=== PATIENT | female | born 1960 | race Caucasian/White ===

== ENCOUNTER 2022-09-14 08:49 | Outpatient (CLI) | payer OTHER, SELFPAY ==
--- NOTE | ~2022-09-14 | MR_ITS ---
MRI of the lumbar spine Clinical History: Degenerative disc disease Technique: Axial T2-weighted images, and sagittal T1-weighted, T2-weighted, and T2 fat-sat images wer e acquired. Findings: There is dextroscoliosis of the lumbar spine. No fracture identified. Minimal grade 1 anter olisthesis of L4 over L5 present. There are extensive reactive marrow signal changes due to extensive degenerative disc change. At L1-L2, there is severe degenerative disc narrowing. There is mild diffuse disc bulge with moderate facet arthropathy. No central canal stenosis. There is advanced right neural foraminal narrowing, an d minimal left neural foraminal narrowing. At L2-L3, there is advanced degenerative disc narrowing. There is diffuse disc bulge with moderate fa cet arthropathy. No central canal stenosis present. There is moderate to advanced left neural foramin al narrowing. Right neural foramen preserved. At L3-L4, there is advanced degenerative disc narrowing. Diffuse disc bulge and advanced facet arthro concepcion are present, with moderate central canal stenosis/thecal sac compression. There is severe left neural foraminal narrowing and moderate right neural foraminal narrowing. At L4-L5, there is diffuse disc bulge and severe facet arthropathy, which contribute to severe spinal canal stenosis/thecal sac compression. There is severe left neural foraminal narrowing and moderate to severe right neural foraminal narrowing. At L5-S1, there is diffuse disc bulge and severe facet arthropathy, with severe right lateral recess stenosis. There is severe right neural foraminal compromise. There is mild left neural foraminal comp romise. Paravertebral soft tissues are unremarkable. Impression: Advanced degenerative spondylosis, as detailed above, worst at L4-L5. Dextroscoliosis with minimal grade 1 anterolisthesis of L4 over L5. Reviewed, dictated and finalized at [facility]. Impression: Advanced degenerative spondylosis, as detailed above, worst at L4-L5. Dextroscoliosis with minimal grade 1 anterolisthesis of L4 over L5.
== END 2022-09-14 08:50 ==
LOC: MICIMG 08:51
PROVIDERS: PCP Emergency Medicine
DX: M47.896 Other spondylosis, lumbar region (principal); M41.86 Other forms of scoliosis, lumbar region; M43.16 Spondylolisthesis, lumbar region
CPT/HCPCS: 72148

== ENCOUNTER → 2022-09-14 08:53 | Outpatient (CLI) | payer OTHER, SELFPAY ==
--- NOTE | ~2022-09-14 | MM_ITS ---
EXAMINATION: MM screening govind BI w reynaldo HISTORY: Screening TECHNIQUE: Craniocaudal and mediolateral oblique 3-D tomosynthesis images were obtained and synthetic 2-D images were generated. CAD analysis was submitted and interpreted. COMPARISON: Comparison to multiple prior studies sequentially, with oldest reviewed study dated 09/14. BREAST PARENCHYMAL COMPOSITION: There are scattered areas of fibroglandular density. FINDINGS: There is no evidence of suspicious mass, calcification, or architectural distortion to sugg est malignancy in either breast. There has been no suspicious interval change. IMPRESSION: 1. No mammographic evidence of malignancy. 2. Recommend routine screening mammography in one year. BI-RADS Category 1: Negative Reviewed, dictated and finalized at location A.
--- NOTE | ~2022-09-14 | DEXA_ITS ---
Bone Density Report Name: GABBIE FATIMA Age: 61 Sex: Female Ethnicity: White Date of : 1960 Indication: postmenopausal; screening for osteoporosis; Referring Provider: RAFAELA, KINA Perez Study: Bone densitometry was performed. Exam Date: September 14, 2022 Accession number: [id number] Bone Density: Region BMD T-score Z-score Classification AP Spine (L1, L2) 1.165 1.7 3.1 Normal Femoral Neck (Right) 0.698 -1.4 0.0 Osteopenia Total Hip (Right) 0.824 -1.0 0.1 Normal World Health Organization criteria for BMD impression classify patients as: Normal (T-score at or above -1.0), Osteopenia (T-score between -1.0 and -2.5), or Osteoporosis (T-score at or below -2.5). 10-year Fracture Risk(1): Major Osteoporotic Fracture 7.5% Hip Fracture 1.0% Reported Risk Factors: [place] (), Neck BMD=0.698, BMI=31.8, smoking (1) FRAX(R) Version 3.08. Fracture probability calculated for an untreated patient. Fracture probability may be lower if the patient has received treatment. Clinical Information Provided by Patient: Smokes Has used the following medications: Vitamin D, Calcium Patient maximum height was 64 Menopause Age: 40 No regular weight bearing exercise Does not regularly consume dairy products Drinks caffeinated beverages Onset of menses at age 15 Number of children 0 Missed period for more than 6 months in a row Impression: The patient has low bone mass, based on the Right Femoral Neck T-score. The patient has an estimated ten-year risk of hip fracture of 1% and an estimated ten-year risk of major fracture of 7.5%, based on the WHO FRAX algorithm. The patient has risk factors, including: smoking. Discussion: BONE DENSITY IS LOW AT ONE OR MORE SKELETAL SITES. This patient's lowest T-score is low at one or more skeletal sites. It meets the World Health Organization's (WHO) criteria for ?low bone mass? (T-score between -1.0 and -2.5). The patient's 10-year risk of fracture as calculated by FRAX is less than the threshold where pharmacological therapy is recommended by the National Osteoporosis Foundation (NOF). However, all treatment decisions require clinical judgment and consideration of individual patient factors, including patient preferences, comorbidities, previous drug use, risk factors not captured in the FRAX model (e.g., frailty, falls, vitamin D deficiency, increased bone turnover, interval significant decline in bone density) and possible under or overestimation of fracture risk by FRAX. The patient should follow a healthful lifestyle (good nutrition with adequate calcium and vitamin D, and appropriate weight-bearing exercise). Follow-Up: Consider repeating this study in 2 to 3 years to reassess this patient's status, or sooner if there is some new clinical indication. Reported by: WILIAN on 09/14/2022 9:57:00 AM. ___
== END ==
PROVIDERS: PCP Emergency Medicine; Visit Provider Emergency Medicine
DX: Z12.31 Encounter for screening mammogram for malignant neoplasm of breast (principal); Z13.820 Encounter for screening for osteoporosis; M85.9 Disorder of bone density and structure, unspecified; F17.200 Nicotine dependence, unspecified, uncomplicated; Z78.0 Asymptomatic menopausal state
CPT/HCPCS: 77063; 77067; 77080

== ENCOUNTER 2024-03-01 10:35 | Outpatient (CLI) | payer OTHER, SELFPAY ==
--- NOTE | ~2024-03-01 | MR_ITS ---
EXAMINATION: MR hip RT wo con DATE: 03/01/2024 11:27 INDICATION: Right hip pain TECHNIQUE: Magnetic resonance imaging (MRI) of the right hip was performed without intravenous contr ast. Sequences included full-field axial PD-weighted FS FSE and T1-weighted FSE, coronal of the pelvi s with PD-weighted FS FSE, T2-weighted FSE and T1-weighted FSE, small field of view of the right hip with axial PD-weighted FS FSE, sagittal PD-weighted FS FSE, coronal PD-weighted FS FSE and coronal T2 weighted FSE. Additional radial T1-weighted FGR oriented orthogonal to the acetabular rim were obt ained for evaluation of the labrum. COMPARISON: Right hip radiographs dated 02/16/2024 FINDINGS: Bones/labrum/cartilage: There is metallic magnetic field artifact associated with a left total hip arthroplasty which obscure s the immediately adjacent bones and soft tissues. Lumbar dextroscoliosis with severe spondylosis inc luding associated fibrofatty degenerative endplate changes. Advanced osteoarthritis at the right hip with remodeling of the apex of the humeral head and cephalad aspect of the acetabulum. There is under lying subarticular edema-like and cystlike changes at both sides of the joint space. Diffuse labral d egeneration which is been partially replaced by acetabular marginal osteophytes and adjacent small he terotopic ossicles. No fracture, osteonecrosis or pathologic marrow replacing process. Fluid: Likely reactive small right hip joint effusion with mild synovitis. Soft tissues: There is linear scarring in the subcutaneous tissues lateral to the proximal left femur with likely s econdary region of fatty atrophy of the distal most left gluteus medius medius muscle belly. Otherwis e normal and symmetric muscle bulk and signal in the pelvis and visualized proximal thighs. Mild scar ring along the surgical scar at the distal left gluteus solitario tendon. The iliopsoas, gluteal and pr oximal hamstring tendons are otherwise normal. Limited evaluation of visceral organs of the pelvis is unremarkable. No pathologically enlarged pelvic/inguinal lymphadenopathy. IMPRESSION: 1. Advanced right hip osteoarthritis with likely reactive small right hip joint effusion. 2. Lumbar dextroscoliosis with severe spondylosis. 2. Left total hip arthroplasty. Reviewed, dictated and finalized at location B. [facility] [employer]
== END 2024-03-01 10:36 | disposition home or self-care (01) ==
LOC: MICIMG 10:36
PROVIDERS: PCP Emergency Medicine; Visit Provider Orthopaedic Surgery
DX: M16.11 Unilateral primary osteoarthritis, right hip (principal); M41.86 Other forms of scoliosis, lumbar region; M43.06 Spondylolysis, lumbar region; Z96.642 Presence of left artificial hip joint
CPT/HCPCS: 73721

== ENCOUNTER 2024-05-31 07:49 | Outpatient (CLI) | payer OTHER, SELFPAY ==
--- OUTSIDE RECORDS SUMMARY | 2024-05-31 08:02 | XMS_ITS | CONTINUITY OF CARE DOCUMENT ---
Author Name juancarlos bauer Address Unknown Organization [facility] Address [address] [place] [address] Phone [phone] Care Team Providers Care Iron Miner Name Role Phone Lazarus GARAY, Xuan Orellana Unavailable NAYELY GARAY, AIDEN Harris Unavailable EMETERIO GARAY, AXEL Cooper Unavailable [phone] PROBLEMS Condition Status Date Provider Notes Cardiovascular screening active Xuan gilbert MD HTN essential active Xuan Qiu MD Hypercholesterolemia active Xuan ambrocio MD Preop cardiovasc. examination active Neno Qiu MD Tobacco abuse active Xuan Qiu MD GERD active Xuan Qiu MD ENCOUNTERS Date Type Provider Location Encounter Diag nosis 1 - 5 In-person encounter Office Visit Xuan Qiu MD [place] [facility] Cardiovascular screeningHTN essentialHypercholesterolemiaPreop cardiovasc. examinationTobacco abuseGERD VITAL SIGNS Date Observation Value Provider Body Mass Index (Ratio) 34.84 kg/m2 Jada Qiu MD blood pressure, cuff size regular Chaz Crandall blood pressure, diastolic 72 mm[Hg] Chaz Crandall blood pressure, systolic 110 mm[Hg] Mary Crandall pulse rate 96 /min Nika Crandall oxygen saturation, oximetry 98 % Nika Crandall respiratory rate E&M 18 /min Nika Crandall weight E&M 203 [lb_av] Nika Crandall height E&M 64 [in_i] Nika Crandall blood pressure, resting Yes Marcus busby Raz HISTORY OF MEDICATION USE Medication Status Instructions Dates Provider Indications Com ments CRANBERRY TABLET active take one tablet by mouth once daily Nika Raz EMERGEN-C IMMUNE ORAL PACKET active Nika Marby EQL FIBER THERAPY TABLET active take one tablet by mouth once daily Nika Raz CALCIUM + D3 TABLET active take one 500 0 mg by mouth once janet Nika Raz CALCIUM + D TABLET active take one tabl et by mouth once daily Nika Crandall ADULT ASPIRIN REGIMEN 81 MG ORAL TABLET DELAYED RELEASE active take one tablet by mouth once daily Nika Crandall LISINOPRIL 40 MG ORAL TABLET active TAKE 1 TABLET BY MOUTH EVERY DAY Nika Carndall #90, 90 days supply, Prescribed by AXEL STORM, Filled 05/04/2020 SERTRALINE HCL 50 MG ORAL TABLET active TAKE 1 TABLET BY MOUTH EVERY DAY Nika Crandall #90, 90 days supply, Prescribed by AXEL STORM, Filled 05/23/2020 FLUTICASONE PROPIONATE 50 MCG/ACT NASAL SUSPENSION active SHAKE LIQUID AND USE 1 SPRAY IN EACH NOSTRIL EVERY DAY Nika Crandall #16, 30 days supply, Prescribed by AXEL STORM, Filled 05/23/2020 OMEPRAZOLE 40 MG ORAL CAPSULE DELAYED RELEASE active TAKE 1 CAPSULE BY MOUTH EVERY DAY Nika Crandall #90, 90 days supply, Prescribed by AXEL STORM, Filled 06/07/2020 BUPROPION HCL ER (XL) 150 MG ORAL TABLET EXTENDED RELEASE 24 HOUR active TAKE 1 TABLET BY MOUTH DAILY Nika Crandall #90, 90 days supply, Prescribed by AXEL STORM, Filled 06/07/2020 MELOXICAM 7.5 MG ORAL TABLET active TAKE 1 TABLET BY MOUTH TWICE DAILY Nika Marby #60, 30 days supply, Prescribed by AXEL STORM, Filled 07/17/2020 HYDROCHLOROTHIAZIDE 25 MG ORAL TABLET active TAKE 2 TABLETS BY MOUTH EVERY DAY Nika Raz #180, 90 days supply, Prescribed by AXEL STORM, Filled 07/17/2020 ATORVASTATIN CALCIUM 10 MG ORAL TABLET active TAKE 1 TABLET BY MOUTH EVERY DAY IN THE EVENING Nika aRz #30, 30 days supply, Prescribed by AXEL STORM, Filled 07/17/2020 SOCIAL HISTORY Date Observation Value Provider number of grandchildren Xuan Qiu MD smoking/tobacco cess ation, patient education and counseling yes Xuan Qiu MD cigarette use yes Nika Crandall smoking status Former smoker Nika Crandall INSURANCE PROVIDERS Payer name Policy type / Coverage type [place] [employer] party ID [employer] [id number] TREATMENT PLAN Date Name Performer Cardiology: H er updated medication list for this problem includes: Omeprazole 40 Mg Oral Capsule Delayed Release (Omeprazole) ..... Take 1 capsule by mouth every day Xuan Qiu MD Cardiology: H er updated medication list for this problem includes: Atorvastatin Calcium 10 Mg Oral Tablet (Atorvastatin calcium) ..... Take 1 tablet by mouth every day in the evening Xuan Qiu MD Cardiology:The Patie nt was reencouraged to stop smoking. Xuan Qiu MD Cardiology:will check echo and l ex stress cannot walk Xuan Qiu MD Cardiology: H er updated medication list for this problem includes: Adult Aspirin Regimen 81 Mg Oral Tablet Delayed Release (Aspirin) ..... Take one tablet by mouth once daily Lisinopril 40 Mg Oral Tablet (Lisinopril) ..... Take 1 tablet by mouth every day Hydrochlorothiazide 25 Mg Oral Tablet (Hydrochlorothiazide) ..... Take 2 tablets by mouth every day BP today: 110/72 Xuan Qiu MD Date Name Complete Echo Stress Regadenoson HISTORY OF PROCEDURES Procedure Date Procedure Name Provider Procedure Notes S tatus EKG Xuan Qiu MD compl eted
--- OUTSIDE RECORDS SUMMARY | 2024-05-31 08:02 | XMS_ITS | Data Portability ---
Author Organization [facility] ROSEMARYPilar [facility] Address [address] [place] [address] Care Team Providers Care Lab Clerk Name Role Phone KINA RUSSO Primary Care Provider Assessment No assessment recorded. Plan of Treatment Reminders Order Date Submit Date Provider Last Modified By Organization Details Last Modified Time Details Appointments ANY 30 2024 10:30A M CLAUDIA Qureshi Not available Not available Not available ANY 15 2024 09:00A M CLAUDIA Qureshi Not available Not available Not available Lab lipid panel, serum 2024 025 [email or web address], [address] , [place], [address], 04/27/2024 13:42:28 lipid panel, serum 2023 024 [email or web address], [address] , [place], [address], 02/20/2024 18:11:27 TSH, serum or plasma 2023 024 [facility], [address] , [place], [address], 02/20/2024 18:11:29 drug screen , urine 2023 024 [facility], [address] , [place], [address], 01/13/2024 22:45:14 noninv asive colore ctal cancer DNA + occult blood screen ing, QL, stool 11/12/ 2024 11/12/2 024 [facility] (Cologuard Orders Only), [address], [address], [place], [address], 01/10/2024 14:54:02 CMP, serum or plasma 2023 024 [email or web address], [address], [place], [address], 02/20/2024 18:11:28 CMP, serum or plasma 2023 024 [facility], [address], [place], [address], 07/21/2023 16:24:10 CBC w/ auto diff 2023 024 [facility], [address], [place], [address], 07/21/2023 16:24:10 magnes ium, serum or plasma 2023 024 [facility], [address], [place], [address], 07/21/2023 16:24:10 lipid panel, serum 2023 024 [facility], [address], [place], [address], 07/21/2023 16:24:10 vitami n B12 + folate , serum or blood 2023 024 [facility], [address], [place], [address], 07/21/2023 16:24:10 BMP, serum or plasma 2022 023 [email or web address], [address], [place], [address], 11/23/2022 15:36:26 magnes ium, serum or plasma 2022 023 [facility], [address], [place], [address], 11/23/2022 15:36:25 CMP, serum or plasma [address] [facility], [address], [place], [address], 06/15/2022 09:26:40 CBC w/ auto diff 2022 023 [facility], [address], [place], [address], 06/15/2022 09:26:40 magnes ium, serum or plasma 2022 023 [facility], [address], [place], [address], 06/15/2022 09:26:41 lipid panel, serum 2022 023 [facility], [address], [place], [address], 06/15/2022 09:26:41 vitami n D, 25-hyd tammy, total, serum [address] [facility], [address], [place], [address], 06/15/2022 09:26:41 vitami n B12 + folate , serum or blood 2022 023 [facility], [address], [place], [address], 06/15/2022 09:26:41 noninv asive colore ctal cancer DNA + occult blood screen ing, QL, stool 2022 023 [facility] (Cologuard Orders Only), [address], [address], [place], [address], 04/21/2022 18:55:13 Referral ENT surger y referr al 2022 023 SUGEY Beltrán MD, [address], [place], [address], 12/16/2022 16:24:14 pain manage ment referr al 2022 023 [facility], [address] , [address], [place], [address], 07/05/2022 14:54:14 Procedures None record ed. Surgeries None record ed. Imaging MAMMO, screen ing, digita l, bilate ral, w/ CAD 2022 023 [facility], [address], [address], [place], [address], 06/14/2022 14:32:06 DEXA 2022 023 [email or web address], [address], [address], [place], [address], 05/07/2022 11:21:55 Medication Orders pregab joan 50 mg capsul e 2024 025 [facility], [address], [place], [place], [id number], 04/26/2024 10:39:31 cyclob enzapr ine 10 mg tablet 2024 025 [facility], [address], [place], [place], [id number], 04/26/2024 11:37:19 hydroc hlorot hiazid e 25 mg tablet 2024 025 [facility], [address], [place], [place], [id number], 04/26/2024 10:39:28 buprop ion HCl XL 150 mg 24 hr tablet , extend ed releas e 2023 024 [facility] #18379, [address], [place], [place], [id number], 01/10/2024 14:54:02 pregab joan 50 mg capsul e 2023 024 [facility] #46993, [address], [place], [place], [id number], 01/10/2024 14:54:02 omepra zole 40 mg capsul e,shayna yed releas e 2023 024 [facility] #20641, [address], [place], [place], [id number], 06/21/2023 16:39:02 amoxic illin 875 mg-pot assium clavul anate 125 mg tablet [address] [facility]26442, [address], [place], [place], [id number], 08/16/2023 19:25:34 predni sone 20 mg tablet [address] [facility] #38858, [address], [place], [place], [id number], 08/16/2023 19:25:46 hydroc hlorot hiazid e 25 mg tablet 2023 024 [facility] #80387, [address], [place], [place], [id number], 06/21/2023 19:43:12 atorva statin 10 mg tablet 2023 024 [facility], [address], [place], [place], [id number], 01/10/2024 14:08:30 omepra zole 40 mg capsul e,shayna yed releas e 2022 023 [facility] #99333, [address], [place], [place], [id number], 04/25/2022 17:05:16 bao ukast 10 mg tablet 2022 023 [facility] #51366, [address], [place], [place], [id number], 04/25/2022 17:05:15 cyclob enzapr ine 10 mg tablet 2022 023 [facility] #31556, [address], [place], [place], [id number], 04/21/2022 18:31:01 meloxi cam 7.5 mg tablet 2022 023 [facility], [address], [place], [place], [id number], 11/22/2022 12:10:57 hydroc hlorot hiazid e 25 mg tablet 2022 023 [facility] #44999, [address], [place], [place], [id number], 04/25/2022 17:05:18 lisino pril 40 mg tablet 2022 023 [facility] #59019, [address], [place], [place], [id number], 04/21/2022 18:31:02 sertra line 50 mg tablet 2022 023 [facility] #43615, [address], [place], [place], [id number], 04/21/2022 18:31:02 buprop ion HCl XL 150 mg 24 hr tablet , extend ed releas e 2022 023 [facility] #28691, [address] [place] [address], [place], [place], [id number], 04/21/2022 18:31:00 Patient TargetsNo targets recorded. Patient Instructions Encounter Date Encounter Id Patient Instructions Last Modified By Organization Details Last Modified Time 04/21/2022 [id number] high blood press ure: care instructions [email or web address] Not available 04/21/2022 18:30:50 learning about h igh blood pressure [email or web address] Not available 04/21/2022 18:30:51 high cholesterol : care instructions [email or web address] Not available 04/21/2022 18:30:51 body mass index: care instructions [email or web address] Not available 04/25/2022 17:05:06 learning about h ealthy weight [email or web address] Not available 04/25/2022 17:05:06 Ashley, - Thank raeann cloud for your visit - Continue your current medications - Have your labs drawn at your earliest convenience - Your lab results will be available on the portal with any recommendations, or we will call you with them - I have placed referral(s) below. You should receive a phone call in the next 2 weeks to schedule this(these) appointment(s). - Return to clinic in 6 months, AND as needed. - Call with any concerns ____ Preventive immunization against tetanus, diphtheria and pertussis is recommended every 10 years, or after 7 years if sustaining a tetanus-prone wound. Preventive immunization against shingles (herpes zoster) is recommended to reduce risk of occurrence, possible chronic pain, and transmission. Currently this is a two shot regimen. All individuals age 65 and up are encouraged to obtain vaccination against Pneumococcal pneumonia. Currently, this is a single immunization, [id number], if you have never previously been immunized. Yearly influenza immunization is recommended, and typically available beginning in mid-October. I highly encourage all who are able to complete an initial immunization series against COVID19, along with boosters as indicated by age or medical history. ____ Exercise recommendations: It is recommended that you do daily aerobic (walking, bicycling, swimming) and resistance exercises (light weight lifting, resistance band stretching) for at least 30 minutes, most days of the week. If you cannot walk, chair exercises for 10-15 minutes a day would help tremendously. As little as 15-20 minutes exercise, in one or two sessions a day, is still very helpful to manage/improve your weight and overall health Diet recommendations: Eat small portion meals, trying not to consume more than 1800 calories a day. Try to eat not more than 2 servings of carbs (starches) with your meals. Avoid soft drinks, including regular sodas, fruit juices, and sweetened tea. Drink water instead. Eat plenty of green and leafy vegetables, including salads. [email or web address] Not available 04/21/2022 18:33:57 11/22/2022 [id number] high cholesterol : care instructions [email or web address] Not available 11/22/2022 12:49:56 high blood press ure: care instructions [email or web address] Not available 11/22/2022 12:49:56 learning about h ealthy weight [email or web address] Not available 11/22/2022 12:49:56 Ashley, - Thank y ai for your visit - Continue your current medications - Decrease your hydrochlorothiazide to 25 mg daily - check your blood pressures and call if persistently 140/90 or above - Try taking 5-10 mg cyclobenzaprine up to 3 times daily as tolerated, for back pain - Your results will be available on the portal with any recommendations, or we will call you with them - I have placed referral(s) below. You should receive a phone call in the next 2 weeks to schedule this(these) appointment(s). - Return to clinic in 6 months, AND as needed. - Call with any concerns ____ Immunization recommendations: Preventive immunization against tetanus, diphtheria and pertussis is recommended every 10 years, or after 7 years if sustaining a tetanus-prone wound. Preventive immunization against shingles (herpes zoster) is recommended to reduce risk of occurrence, possible chronic pain, and transmission. Currently this is a two shot regimen. All individuals age 65 and up are encouraged to obtain vaccination against Pneumococcal pneumonia. Currently, this is a single immunization, [id number], if you have never previously been immunized. Yearly influenza immunization is recommended, and typically available beginning in mid-October. I highly encourage all who are able to complete an initial immunization series against COVID19, along with boosters as indicated by age or medical history. Consider obtaining an RSV immunization. For more information: https://www.cdc.gov/va caren/vpd/rsv/index.h tml ____ Exercise recommendations: It is recommended that you do daily aerobic (walking, bicycling, swimming) and resistance exercises (light weight lifting, resistance band stretching) for at least 30 minutes, most days of the week. If you cannot walk, chair exercises for 10-15 minutes a day would help tremendously. As little as 15-20 minutes exercise, in one or two sessions a day, is still very helpful to manage/improve your weight and overall health Diet recommendations: Eat small portion meals, trying not to consume more than 1800 calories a day. Try to eat not more than 2 servings of carbs (starches) with your meals. Avoid soft drinks, including regular sodas, fruit juices, and sweetened tea. Drink water instead. Eat plenty of green and leafy vegetables, including salads. [email or web address] Not available 11/22/2022 12:56:00 06/21/2023 [id number] Acute Sinusitis: Care Instructions [email or web address] Not available 06/21/2023 16:38:51 learning about h igh blood pressure [email or web address] Not available 06/21/2023 16:38:51 high cholesterol : care instructions [email or web address] Not available 06/21/2023 16:38:51 learning about h ealthy weight [email or web address] Not available 06/21/2023 16:38:51 Ashley, - Thank you for your visit - Continue your current medications - Have your labwork done at your earliest convenience - Your results will be available on the portal with any recommendations, or we will call you with them - Use medications as directed. - Drink plenty of fluids - Mucinex-D for congestion/sinus pressure/ear pain - Return to clinic in 6 months, AND as needed. - Call with any concerns ____ Immunization recommendations: - Preventive immunization against tetanus, diphtheria and pertussis is recommended every 10 years, or after 7 years if sustaining a tetanus-prone wound - Preventive immunization against shingles (herpes zoster) is recommended to reduce risk of occurrence, possible chronic pain, and transmission. Currently this is a two shot regimen - Yearly influenza immunization is recommended, and typically available beginning in mid-October - I highly encourage all who are able to complete an initial immunization series against COVID19, along with boosters as indicated by age or medical history - Consider obtaining an RSV immunization. For more information: https://www.cdc.gov/va ccines/vpd/rsv/index.h tml ____ Exercise recommendations: - It is recommended that you do daily aerobic (walking, bicycling, swimming) and resistance exercises (light weight lifting, resistance band stretching) for at least 30 minutes, most days of the week. - If you cannot walk, chair exercises for 10-15 minutes a day would help tremendously. - As little as 15-20 minutes exercise, in one or two sessions a day, is still very helpful to manage/improve your weight and overall health Diet recommendations: - Eat small portion meals, trying not to consume more than 1800 calories a day. - Try to eat not more than 2 servings of carbs (starches) with your meals. - Avoid soft drinks, including regular sodas, fruit juices, and sweetened tea. Drink water instead. - Eat plenty of green and leafy vegetables, including salads. 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 Referring Physician: Kina Russo, Family Medicine, Encounter Date: 11/22/2022 Results Created Date Observation Date Name Description Value Unit Range Abnormal Flag Note LastModifiedBy Organization Detail LastModifiedTime 07/03/1907/03/2022 LIPID PANEL , STAND JOON cholesterol, total 167 mg/dL <200 normal Not Available [facility] [address] [address] [place], [address], 07/03/2022 02:32:34 07/03/1907/03/2022 LIPID PANEL , STAND JOON HDL cholesterol 52 mg/dL > or = 50 normal Not Available [facility] [address] [address], [place], [address], 07/03/2022 02:32:34 07/03/1907/03/2022 LIPID PANEL , STAND JOON triglyceride s 100 mg/dL <150 normal Not Available [facility] [address] [address] [place], [address], 07/03/2022 02:32:34 07/03/1907/03/2022 LIPID PANEL , STAND JOON LDL-choleste rol 95 mg/dL _(honorio c) normal Refer ence range : <100 Santiago able range <100 mg/dL for prima ry preve ntion ; <70 mg/dL for patie nts with CHD or diabe tic patie nts with > or = 2 CHD risk facto rs. LDL-C is now calcu lated using the Norma fernandez-Hop kins carlyle brown n, which is a valid ated novel vanceo vikki talavera r accur acy than the Fried zhane equat ion in the estim ation of LDL-C . Norma fernadnez SS et al. MARZENA. 2013; 310(1 9): 2061- 2068 (http ://ed ucati on.Qu Emili larsons. com/f aq/FA Q164) Not Available [facility] [address] [address], [place], [address], 07/03/2022 02:32:34 07/03/1907/03/2022 LIPID PANEL , STAND JOON chol/HDLC ratio 3.2 (calc ) <5.0 normal Not Available [address], [address], 07/03/2022 02:32:34 07/03/19 23 07/03/2022 LIPID PANEL , STAND JOON non HDL cholesterol 115 mg/dL _(honorio c) <130 normal For patie nts with diabe carol ann plus 1 major ASCVD risk facto r, treat ing to a non-H DL-C goal of <100 mg/dL (LDL- C of <70 mg/dL ) is consi dered a thera peuti c optio n. Not Available [address], [address], 07/03/2022 02:32:34 07/03/19 23 07/03/2022 MAGNE SIUM magnesium 2.1 mg/dL 1.5-2. 5 normal Not Available [address] [place], [address], 07/03/2022 02:32:34 07/03/19 23 07/03/2022 COMPR EHENS ROSANNE METAB OLIC PANEL glucose 110 mg/dL 65-99 high Fasti ng refer ence inter anna For someo ne witho ut known diabe carol ann, a gluco se value betwe en 100 and 125 mg/dL is consi stent with predi abete s and shoul d be confi rmed with a follo w-up test. Not Available [facility] [address] [address] [place], [address], 07/03/2022 02:32:35 07/03/19 23 07/03/2022 COMPR EHENS ROSANNE METAB OLIC PANEL urea nitrogen (BUN) 18 mg/dL 7-25 normal Not Available [address] [address] [place], [address], 07/03/2022 02:32:35 07/03/19 23 07/03/2022 COMPR EHENS ROSANNE METAB OLIC PANEL creatinine 1.13 mg/dL 0.50-1 .05 high Not Available [address], [address], 07/03/2022 02:32:35 07/03/19 23 07/03/2022 COMPR EHENS ROSANNE METAB OLIC PANEL eGFR 55 mL/mi n/1.7 3m2 > or = 60 low The eGFR is based on the CKD-E PI 2020 equat ion. To calcu late the new eGFR from a previ ous Creat inine or Cysta tin C resul t, go to https ://bobo w.karis hamy.o jaquan/meghan mendoza s/ kdoqi /gfr% 5Fcal culat or Not Available [address], [address], 07/03/2022 02:32:35 07/03/19 23 07/03/2022 COMPR EHENS ROSANNE METAB OLIC PANEL BUN/creatini ne ratio 16 (calc ) 6-22 normal Not Available [address], [address], 07/03/2022 02:32:35 07/03/19 23 07/03/2022 COMPR EHENS ROSANNE METAB OLIC PANEL sodium 138 mmol/ L 135-14 6 normal Not Available [address], [address], 07/03/2022 02:32:35 07/03/19 23 07/03/2022 COMPR EHENS ROSANNE METAB OLIC PANEL potassium 4.6 mmol/ L 3.5-5. 3 normal Not Available [facility] [address], [address], 07/03/2022 02:32:35 07/03/19 23 07/03/2022 COMPR EHENS ROSANNE METAB OLIC PANEL chloride 102 mmol/ L 98-110 normal Not Available [facility] [address], [address], 07/03/2022 02:32:35 07/03/19 23 07/03/2022 COMPR EHENS ROSANNE METAB OLIC PANEL carbon dioxide 29 mmol/ L 20-32 normal Not Available [address], [address], 07/03/2022 02:32:35 07/03/19 23 07/03/2022 COMPR EHENS ROSANNE METAB OLIC PANEL calcium 9.9 mg/dL 8.6-10 .4 normal Not Available [address], [address], 07/03/2022 02:32:35 07/03/19 23 07/03/2022 COMPR EHENS ROSANNE METAB OLIC PANEL protein, total 6.7 g/dL 6.1-8. 1 normal Not Available [address], [address], 07/03/2022 02:32:35 07/03/19 23 07/03/2022 COMPR EHENS ROSANNE METAB OLIC PANEL albumin 4.3 g/dL 3.6-5. 1 normal Not Available [address], [address], 07/03/2022 02:32:35 07/03/19 23 07/03/2022 COMPR EHENS ROSANNE METAB OLIC PANEL globulin 2.4 g/dL_ (calc ) 1.9-3. 7 normal Not Available [address], [address], 07/03/2022 02:32:35 07/03/19 23 07/03/2022 COMPR EHENS ROSANNE METAB OLIC PANEL albumin/glob ulin ratio 1.8 (calc ) 1.0-2. 5 normal Not Available [address], [address], 07/03/2022 02:32:35 07/03/19 23 07/03/2022 COMPR EHENS ROSANNE METAB OLIC PANEL bilirubin, total 0.5 mg/dL 0.2-1. 2 normal Not Available [address], [address], 07/03/2022 02:32:35 07/03/19 23 07/03/2022 COMPR EHENS ROSANNE METAB OLIC PANEL alkaline phosphatase 55 U/L 37-153 normal Not Available [facility] [employer] [address], [address], 07/03/2022 02:32:35 07/03/19 23 07/03/2022 COMPR EHENS ROSANNE METAB OLIC PANEL AST 14 U/L 10-35 normal Not Available [address], [address], 07/03/2022 02:32:35 07/03/19 23 07/03/2022 COMPR EHENS ROSANNE METAB OLIC PANEL ALT 15 U/L 6-29 normal Not Available [address], [address], 07/03/2022 02:32:35 07/03/19 23 07/03/2022 CBC (INCL UDES DIFF/ PLT) white blood cell count 6.2 thous and/u L 3.8-10 .8 normal Not Available [address], [address], 07/03/2022 02:32:35 07/03/19 23 07/03/2022 CBC (INCL UDES DIFF/ PLT) red blood cell count 4.20 james on/uL 3.80-5 .10 normal Not Available [address], [address], 07/03/2022 02:32:35 07/03/19 23 07/03/2022 CBC (INCL UDES DIFF/ PLT) hemoglobin 13.5 g/dL 11.7-1 5.5 normal Not Available [facility] [address] [place], [address], 07/03/2022 02:32:35 07/03/1907/03/2022 CBC (INCL UDES DIFF/ PLT) hematocrit 39.9 % 35.0-4 5.0 normal Not Available [facility] [address], [address], 07/03/2022 02:32:35 07/03/1907/03/2022 CBC (INCL UDES DIFF/ PLT) MCV 95.0 fL 80.0-1 00.0 normal Not Available [facility] [address], [address], 07/03/2022 02:32:35 07/03/1907/03/2022 CBC (INCL UDES DIFF/ PLT) MCH 32.1 pg 27.0-3 3.0 normal Not Available [facility] [address], [address], 07/03/2022 02:32:35 07/03/1907/03/2022 CBC (INCL UDES DIFF/ PLT) MCHC 33.8 g/dL 32.0-3 6.0 normal Not Available [facility] [address], [address], 07/03/2022 02:32:35 07/03/1907/03/2022 CBC (INCL UDES DIFF/ PLT) RDW 12.9 % 11.0-1 5.0 normal Not Available [facility] [address], [address], 07/03/2022 02:32:35 07/03/1907/03/2022 CBC (INCL UDES DIFF/ PLT) platelet count 363 thous and/u L 140-40 0 normal Not Available [facility] [address], [address], 07/03/2022 02:32:35 07/03/19 23 07/03/2022 CBC (INCL UDES DIFF/ PLT) MPV 10.3 fL 7.5-12 .5 normal Not Available [address], [address], 07/03/2022 02:32:35 07/03/19 23 07/03/2022 CBC (INCL UDES DIFF/ PLT) absolute neutrophils 2672 cells /uL 1500-7 800 normal Not Available [facility] [address], [address], 07/03/2022 02:32:35 07/03/19 23 07/03/2022 CBC (INCL UDES DIFF/ PLT) absolute lymphocytes 2740 cells /uL 850-39 00 normal Not Available [address], [address], 07/03/2022 02:32:35 07/03/19 23 07/03/2022 CBC (INCL UDES DIFF/ PLT) absolute monocytes 403 cells /uL 200-95 0 normal Not Available [facility] [address], [address], 07/03/2022 02:32:35 07/03/19 23 07/03/2022 CBC (INCL UDES DIFF/ PLT) absolute eosinophils 304 cells /uL 15-500 normal Not Available [facility] [address], [address], 07/03/2022 02:32:35 07/03/19 23 07/03/2022 CBC (INCL UDES DIFF/ PLT) absolute basophils 81 cells /uL 0-200 normal Not Available [facility] [address], [address], 07/03/2022 02:32:35 07/03/19 23 07/03/2022 CBC (INCL UDES DIFF/ PLT) neutrophils 43.1 % normal Not Available [facility] [address], [address], 07/03/2022 02:32:35 07/03/19 23 07/03/2022 CBC (INCL UDES DIFF/ PLT) lymphocytes 44.2 % normal Not Available [address], [address], 07/03/2022 02:32:35 07/03/19 23 07/03/2022 CBC (INCL UDES DIFF/ PLT) monocytes 6.5 % normal Not Available [address], [address], 07/03/2022 02:32:35 07/03/19 23 07/03/2022 CBC (INCL UDES DIFF/ PLT) eosinophils 4.9 % normal Not Available [address], [address], 07/03/2022 02:32:35 07/03/1907/03/2022 CBC (INCL UDES DIFF/ PLT) basophils 1.3 % normal Not Available [address], [address], 07/03/2022 02:32:35 07/03/1907/03/2022 VITAM IN B12/F OLATE , SERUM PANEL vitamin B12 480 pg/mL 200-11 00 normal Not Available [address], [address], 07/03/2022 02:32:36 07/03/1907/03/2022 VITAM IN B12/F OLATE , SERUM PANEL folate, serum 18.4 NG/mL normal Refer ence Range Low: <3.4 Borde rline : 3.4-5 .4 Hilda l: >5.4 Not Available [address], [address], 07/03/2022 02:32:36 07/03/19 23 07/03/2022 VITAM IN D,25- OH,TO VY,I A vitamin D,25-oh,tota l,ia 61 NG/mL 30-100 normal Vitam in D Statu s 25-OH Vitam in D: Defic iency : <20 ng/mL Insuf ficie ncy: 20 - 29 ng/mL Optim al: > or = 30 ng/mL For 25-OH Vitam in D testi ng on patie nts on D2-olson pplem entat ion and patie nts for whom quant itati on of D2 and D3 fract ions is requi red, the [facility](TM ) 25-OH VIT D, (D2,D 3), LC/MS /MS is recom clement d: order code 40849 (kash ents >2yrs ). See Note 1 Note 1 For addit ional infor alexandria phillips refer to http: //vee Cervantes gnost ics.c om/fa q/FAQ 199 (This link is being provi ded for infor irwin cook/ shade montes purpo ses only. ) Not Available [address] [place], [address], 07/03/2022 02:32:36 11/23/1911/23/2022 MAGNE SIUM magnesium 2.1 mg/dL 1.5-2. 5 normal Not Available [address] [address] [place], [address], 11/23/2022 15:36:25 11/23/1911/23/2022 BASIC METAB OLIC PANEL glucose 88 mg/dL 65-99 normal Fasti ng refer ence inter anna Not Available [facility] [address] [address] [place], [address], 11/23/2022 15:36:26 11/23/1911/23/2022 BASIC METAB OLIC PANEL urea nitrogen (BUN) 14 mg/dL 7-25 normal Not Available [facility] [address] [address] [place], [address], 11/23/2022 15:36:26 11/23/19 23 11/23/2022 BASIC METAB OLIC PANEL creatinine 0.90 mg/dL 0.50-1 .05 normal Not Available [address], [address], 11/23/2022 15:36:26 11/23/19 23 11/23/2022 BASIC METAB OLIC PANEL eGFR 73 mL/mi n/1.7 3m2 > or = 60 normal Not Available [address], [address], 11/23/2022 15:36:11/23/19 23 11/23/2022 BASIC METAB OLIC PANEL BUN/creatini ne ratio SEE NOTE: (calc ) 6-22 Not Repor charity: BUN and Creat inine are withi n refer ence range . Not Available [address], [address], 11/23/2022 15:36:11/23/19 23 11/23/2022 BASIC METAB OLIC PANEL sodium 133 mmol/ L 135-14 6 low Not Available [address], [address], 11/23/2022 15:36:26 11/23/19 23 11/23/2022 BASIC METAB OLIC PANEL potassium 4.2 mmol/ L 3.5-5. 3 normal Not Available [facility] [address], [address], 11/23/2022 15:36:11/23/1911/23/2022 BASIC METAB OLIC PANEL chloride 97 mmol/ L 98-110 low Not Available [facility] [address], [address], 11/23/2022 15:36:11/23/19 23 11/23/2022 BASIC METAB OLIC PANEL carbon dioxide 29 mmol/ L 20-32 normal Not Available [address], [address], 11/23/2022 15:36:26 11/23/19 23 11/23/2022 BASIC METAB OLIC PANEL calcium 9.6 mg/dL 8.6-10 .4 normal Not Available [address], [address], 11/23/2022 15:36:26 08/23/19 24 08/24/2023 LIPID PANEL , STAND JOON cholesterol, total 168 mg/dL <200 normal Not Available [facility] [address], [address], 08/24/2023 03:57:56 08/23/1908/24/2023 LIPID PANEL , STAND JOON HDL cholesterol 43 mg/dL > or = 50 low Not Available [address], [address], 08/24/2023 03:57:56 08/23/19 24 08/24/2023 LIPID PANEL , STAND JOON triglyceride s 243 mg/dL <150 high If a non-f astin g speci men was colle cted, consi rosario repea t trigl yceri de testi ng on a fasti ng speci men if clini libby indic ated. Camilo pickett et al. J. of Clin. Lipid ol. 2015; 9:129 -169. Not Available [address], [address], 08/24/2023 03:57:56 08/23/19 24 08/24/2023 LIPID PANEL , STAND JOON LDL-choleste rol 91 mg/dL _(honorio c) normal Refer ence range : <100 Santiago able range <100 mg/dL for prima ry preve ntion ; <70 mg/dL for patie nts with CHD or diabe tic patie nts with > or = 2 CHD risk facto rs. LDL-C is now calcu lated using the Norma n-Hop kins calcu latyakov n, which is a valid ated novel metho d briani patel talavera r accur acy than the Fried zhane equat ion in the estim ation of LDL-C . Norma n SS et al. MARZENA. 2013; 310(1 9): 2061- 2068 (http ://ed ucati on.DIY Emili [employer]. com/f aq/FA Q164) Not Available [facility] [address] [address] [place], [address], 08/24/2023 03:57:56 08/23/19 24 08/24/2023 LIPID PANEL , STAND JOON chol/HDLC ratio 3.9 (calc ) <5.0 normal Not Available [facility] [address] [place], [address], 08/24/2023 03:57:56 08/23/1908/24/2023 LIPID PANEL , STAND JOON non HDL cholesterol 125 mg/dL _(honorio c) <130 normal For patie nts with diabe carol ann plus 1 major ASCVD risk facto r, treat ing to a non-H DL-C goal of <100 mg/dL (LDL- C of <70 mg/dL ) is consi dered a thera peuti c optio n. Not Available [facility] [address] [address] [place], [address], 08/24/2023 03:57:56 08/23/19 24 08/24/2023 MAGNE SIUM magnesium 1.9 mg/dL 1.5-2. 5 normal Not Available [facility] [address], [address], 08/24/2023 03:57:56 08/23/1908/24/2023 COMPR EHENS ROSANNE METAB OLIC PANEL glucose 109 mg/dL 65-99 high Fasti ng refer ence inter anna For someo ne witho ut known diabe carol ann, a gluco se value betwe en 100 and 125 mg/dL is consi stent with predi abete s and shoul d be confi rmed with a follo w-up test. Not Available [facility] [address] [place], [address], 08/24/2023 03:57:57 08/23/19 24 08/24/2023 COMPR EHENS ROSANNE METAB OLIC PANEL urea nitrogen (BUN) 13 mg/dL 7-25 normal Not Available [address], [address], 08/24/2023 03:57:57 08/23/19 24 08/24/2023 COMPR EHENS ROSANNE METAB OLIC PANEL creatinine 0.89 mg/dL 0.50-1 .05 normal Not Available [address], [address], 08/24/2023 03:57:57 08/23/19 24 08/24/2023 COMPR EHENS ROSANNE METAB OLIC PANEL eGFR 73 mL/mi n/1.7 3m2 > or = 60 normal Not Available [address], [address], 08/24/2023 03:57:57 08/23/19 24 08/24/2023 COMPR EHENS ROSANNE METAB OLIC PANEL BUN/creatini ne ratio SEE NOTE: (calc ) 6-22 Not Repor charity: BUN and Creat inine are withi n refer ence range . Not Available [address], [address], 08/24/2023 03:57:57 08/23/19 24 08/24/2023 COMPR EHENS ROSANNE METAB OLIC PANEL sodium 136 mmol/ L 135-14 6 normal Not Available [address] [place], [address], 08/24/2023 03:57:57 08/23/19 24 08/24/2023 COMPR EHENS ROSANNE METAB OLIC PANEL potassium 4.2 mmol/ L 3.5-5. 3 normal Not Available [address], [address], 08/24/2023 03:57:57 08/23/19 24 08/24/2023 COMPR EHENS ROSANNE METAB OLIC PANEL chloride 100 mmol/ L 98-110 normal Not Available [address], [address], 08/24/2023 03:57:57 08/23/19 24 08/24/2023 COMPR EHENS ROSANNE METAB OLIC PANEL carbon dioxide 29 mmol/ L 20-32 normal Not Available [address], [address], 08/24/2023 03:57:57 08/23/19 24 08/24/2023 COMPR EHENS ROSANNE METAB OLIC PANEL calcium 9.3 mg/dL 8.6-10 .4 normal Not Available [address], [address], 08/24/2023 03:57:57 08/23/19 24 08/24/2023 COMPR EHENS ROSANNE METAB OLIC PANEL protein, total 6.6 g/dL 6.1-8. 1 normal Not Available [address], [address], 08/24/2023 03:57:57 08/23/19 24 08/24/2023 COMPR EHENS ROSANNE METAB OLIC PANEL albumin 4.2 g/dL 3.6-5. 1 normal Not Available [address], [address], 08/24/2023 03:57:57 08/23/19 24 08/24/2023 COMPR EHENS ROSANNE METAB OLIC PANEL globulin 2.4 g/dL_ (calc ) 1.9-3. 7 normal Not Available [address], [address], 08/24/2023 03:57:57 08/23/19 24 08/24/2023 COMPR EHENS ROSANNE METAB OLIC PANEL albumin/glob ulin ratio 1.8 (calc ) 1.0-2. 5 normal Not Available [address], [address], 08/24/2023 03:57:57 08/23/19 24 08/24/2023 COMPR EHENS ROSANNE METAB OLIC PANEL bilirubin, total 0.4 mg/dL 0.2-1. 2 normal Not Available [address], [address], 08/24/2023 03:57:57 08/23/19 24 08/24/2023 COMPR EHENS ROSANNE METAB OLIC PANEL alkaline phosphatase 64 U/L 37-153 normal Not Available [address], [address], 08/24/2023 03:57:57 08/23/19 24 08/24/2023 COMPR EHENS ROSANNE METAB OLIC PANEL AST 15 U/L 10-35 normal Not Available [address], [address], 08/24/2023 03:57:57 08/23/19 24 08/24/2023 COMPR EHENS ROSANNE METAB OLIC PANEL ALT 14 U/L 6-29 normal Not Available [address], [address], 08/24/2023 03:57:57 08/23/19 24 08/24/2023 CBC (INCL UDES DIFF/ PLT) white blood cell count 6.0 thous and/u L 3.8-10 .8 normal Not Available [address], [address], 08/24/2023 03:57:57 08/23/19 24 08/24/2023 CBC (INCL UDES DIFF/ PLT) red blood cell count 4.08 james on/uL 3.80-5 .10 normal Not Available [address], [address], 08/24/2023 03:57:57 08/23/19 24 08/24/2023 CBC (INCL UDES DIFF/ PLT) hemoglobin 12.7 g/dL 11.7-1 5.5 normal Not Available [address], [address], 08/24/2023 03:57:57 08/23/19 24 08/24/2023 CBC (INCL UDES DIFF/ PLT) hematocrit 38.6 % 35.0-4 5.0 normal Not Available [address], [address], 08/24/2023 03:57:57 08/23/19 24 08/24/2023 CBC (INCL UDES DIFF/ PLT) MCV 94.6 fL 80.0-1 00.0 normal Not Available [address], [address], 08/24/2023 03:57:57 08/23/19 24 08/24/2023 CBC (INCL UDES DIFF/ PLT) MCH 31.1 pg 27.0-3 3.0 normal Not Available [address], [address], 08/24/2023 03:57:57 08/23/19 24 08/24/2023 CBC (INCL UDES DIFF/ PLT) MCHC 32.9 g/dL 32.0-3 6.0 normal Not Available [address], [address], 08/24/2023 03:57:57 08/23/19 24 08/24/2023 CBC (INCL UDES DIFF/ PLT) RDW 13.1 % 11.0-1 5.0 normal Not Available [address], [address], 08/24/2023 03:57:57 08/23/19 24 08/24/2023 CBC (INCL UDES DIFF/ PLT) platelet count 358 thous and/u L 140-40 0 normal Not Available [address], [address], 08/24/2023 03:57:57 08/23/19 24 08/24/2023 CBC (INCL UDES DIFF/ PLT) MPV 10.1 fL 7.5-12 .5 normal Not Available [address], [address], 08/24/2023 03:57:57 08/23/19 24 08/24/2023 CBC (INCL UDES DIFF/ PLT) absolute neutrophils 3036 cells /uL 1500-7 800 normal Not Available [address], [address], 08/24/2023 03:57:57 08/23/19 24 08/24/2023 CBC (INCL UDES DIFF/ PLT) absolute lymphocytes 2328 cells /uL 850-39 00 normal Not Available [address], [address], 08/24/2023 03:57:57 08/23/19 24 08/24/2023 CBC (INCL UDES DIFF/ PLT) absolute monocytes 330 cells /uL 200-95 0 normal Not Available [address], [address], 08/24/2023 03:57:57 08/23/19 24 08/24/2023 CBC (INCL UDES DIFF/ PLT) absolute eosinophils 228 cells /uL 15-500 normal Not Available [address], [address], 08/24/2023 03:57:57 08/23/19 24 08/24/2023 CBC (INCL UDES DIFF/ PLT) absolute basophils 78 cells /uL 0-200 normal Not Available [address], [address], 08/24/2023 03:57:57 08/23/19 24 08/24/2023 CBC (INCL UDES DIFF/ PLT) neutrophils 50.6 % normal Not Available [address], [address], 08/24/2023 03:57:57 08/23/19 24 08/24/2023 CBC (INCL UDES DIFF/ PLT) lymphocytes 38.8 % normal Not Available [address], [address], 08/24/2023 03:57:57 08/23/19 24 08/24/2023 CBC (INCL UDES DIFF/ PLT) monocytes 5.5 % normal Not Available [address], [address], 08/24/2023 03:57:57 08/23/19 24 08/24/2023 CBC (INCL UDES DIFF/ PLT) eosinophils 3.8 % normal Not Available [address], [address], 08/24/2023 03:57:57 08/23/19 24 08/24/2023 CBC (INCL UDES DIFF/ PLT) basophils 1.3 % normal Not Available [address], [address], 08/24/2023 03:57:57 08/23/19 24 08/24/2023 VITAM IN B12/F OLATE , SERUM PANEL vitamin B12 675 pg/mL 200-11 00 normal Not Available [address], [address], 08/24/2023 03:57:58 08/23/19 24 08/24/2023 VITAM IN B12/F OLATE , SERUM PANEL folate, serum 17.6 NG/mL normal Refer ence Range Low: <3.4 Borde rline : 3.4-5 .4 Hilda l: >5.4 Not Available [address], [place], [address], 08/24/2023 03:57:58 01/10/20 24 02/20/2024 LIPID PANEL , STAND JOON cholesterol, total 147 mg/dL <200 normal Not Available [facility] [address] [address] [place], [address], 02/20/2024 18:11:26 01/10/20 24 02/20/2024 LIPID PANEL , STAND JOON HDL cholesterol 48 mg/dL > or = 50 low Not Available [facility] [address] [address] [place], [address], 02/20/2024 18:11:26 01/10/20 24 02/20/2024 LIPID PANEL , STAND JOON triglyceride s 181 mg/dL <150 high Not Available [facility] [address], [address], 02/20/2024 18:11:26 01/10/20 24 02/20/2024 LIPID PANEL , STAND JOON LDL-choleste rol 73 mg/dL _(honorio c) normal Refer ence range : <100 Santiago able range <100 mg/dL for prima ry preve ntion ; <70 mg/dL for patie nts with CHD or diabe tic patie nts with > or = 2 CHD risk facto rs. LDL-C is now calcu lated using the Norma n-Hop kins carlyle brown n, which is a valid ated novel vanceo vikki villeda accur acy than the Fried zhane equat ion in the estim ation of LDL-C . Norma fernandez SS et al. MARZENA. 2013; 310(1 9): 2061- 2068 (http ://ed ucati on.Qu Emili larsons. com/f aq/FA Q164) Not Available [facility] [address] [address] [place], [address], 02/20/2024 18:11:26 01/10/20 24 02/20/2024 LIPID PANEL , STAND JOON chol/HDLC ratio 3.1 (calc ) <5.0 normal Not Available [address], [address], 02/20/2024 18:11:26 01/10/20 24 02/20/2024 LIPID PANEL , STAND JOON non HDL cholesterol 99 mg/dL _(honorio c) <130 normal For patie nts with diabe carol ann plus 1 major ASCVD risk facto r, treat ing to a non-H DL-C goal of <100 mg/dL (LDL- C of <70 mg/dL ) is consi dered a thera peuti c optio n. Not Available [address], [address], 02/20/2024 18:11:26 01/10/20 24 02/20/2024 TSH+F REE T4 TSH 1.56 mIU/L 0.40-4 .50 normal Not Available [address], [address], 02/20/2024 18:11:28 01/10/20 24 02/20/2024 TSH+F REE T4 T4, free 1.3 NG/dL 0.8-1. 8 normal Not Available [address], [address], 02/20/2024 18:11:28 01/10/20 24 02/20/2024 COMPR EHENS ROSANNE METAB OLIC PANEL glucose 88 mg/dL 65-99 normal Fasti ng refer ence inter anna Not Available [address] [place], [address], 02/20/2024 18:11:28 01/10/20 24 02/20/2024 COMPR EHENS ROSANNE METAB OLIC PANEL urea nitrogen (BUN) 13 mg/dL 7-25 normal Not Available [address] [place], [address], 02/20/2024 18:11:28 01/10/20 24 02/20/2024 COMPR EHENS ROSANNE METAB OLIC PANEL creatinine 0.81 mg/dL 0.50-1 .05 normal Not Available [address], [address], 02/20/2024 18:11:28 01/10/20 24 02/20/2024 COMPR EHENS ROSANNE METAB OLIC PANEL eGFR 82 mL/mi n/1.7 3m2 > or = 60 normal Not Available [address], [address], 02/20/2024 18:11:28 01/10/20 24 02/20/2024 COMPR EHENS ROSANNE METAB OLIC PANEL BUN/creatini ne ratio SEE NOTE: (calc ) 6-22 Not Repor charity: BUN and Creat inine are withi n refer ence range . Not Available [address], [address], 02/20/2024 18:11:28 01/10/20 24 02/20/2024 COMPR EHENS ROSANNE METAB OLIC PANEL sodium 136 mmol/ L 135-14 6 normal Not Available [address], [address], 02/20/2024 18:11:28 01/10/20 24 02/20/2024 COMPR EHENS ROSANNE METAB OLIC PANEL potassium 4.3 mmol/ L 3.5-5. 3 normal Not Available [address], [address], 02/20/2024 18:11:28 01/10/20 24 02/20/2024 COMPR EHENS ROSANNE METAB OLIC PANEL chloride 97 mmol/ L 98-110 low Not Available [address], [address], 02/20/2024 18:11:28 01/10/20 24 02/20/2024 COMPR EHENS ROSANNE METAB OLIC PANEL carbon dioxide 29 mmol/ L 20-32 normal Not Available [address], [address], 02/20/2024 18:11:28 01/10/20 24 02/20/2024 COMPR EHENS ROSANNE METAB OLIC PANEL calcium 9.4 mg/dL 8.6-10 .4 normal Not Available [address], [address], 02/20/2024 18:11:28 01/10/20 24 02/20/2024 COMPR EHENS ROSANNE METAB OLIC PANEL protein, total 6.5 g/dL 6.1-8. 1 normal Not Available [address], [address], 02/20/2024 18:11:28 01/10/20 24 02/20/2024 COMPR EHENS ROSANNE METAB OLIC PANEL albumin 4.1 g/dL 3.6-5. 1 normal Not Available [address], [address], 02/20/2024 18:11:28 01/10/20 24 02/20/2024 COMPR EHENS ROSANNE METAB OLIC PANEL globulin 2.4 g/dL_ (calc ) 1.9-3. 7 normal Not Available [address], [address], 02/20/2024 18:11:28 01/10/20 24 02/20/2024 COMPR EHENS ROSANNE METAB OLIC PANEL albumin/glob ulin ratio 1.7 (calc ) 1.0-2. 5 normal Not Available [address], [address], 02/20/2024 18:11:28 01/10/20 24 02/20/2024 COMPR EHENS ROSANNE METAB OLIC PANEL bilirubin, total 0.3 mg/dL 0.2-1. 2 normal Not Available [address] [place], [address], 02/20/2024 18:11:28 01/10/20 24 02/20/2024 COMPR EHENS ROSANNE METAB OLIC PANEL alkaline phosphatase 71 U/L 37-153 normal Not Available [facility] [employer] [address] [address] [place], [address], 02/20/2024 18:11:28 01/10/20 24 02/20/2024 COMPR EHENS ROSANNE METAB OLIC PANEL AST 15 U/L 10-35 normal Not Available [address], [address], 02/20/2024 18:11:28 01/10/20 24 02/20/2024 COMPR EHENS ROSANNE METAB OLIC PANEL ALT 13 U/L 6-29 normal Not Available [address], [address], 02/20/2024 18:11:28 01/10/20 24 02/20/2024 TSH W/REF YUE TO FT4 TSH w/reflex to FT4 1.56 mIU/L 0.40-4 .50 normal Not Available [address], [address], 02/20/2024 18:11:29 01/10/20 24 02/20/2024 DRUG MONIT OR, PANEL 5, W/CON F, URINE amphetamines TNP TEST NOT PERFO RMED No suita ble speci men recei gallo. Pleas e revie w the test requi remen ts at testd irect ory.q uestd iagno [employer] .com Not Available [address], [address], 02/20/2024 18:11:30 01/10/20 24 02/20/2024 DRUG MONIT OR, PANEL 5, W/CON F, URINE barbiturates TNP TEST NOT PERFO RMED No suita ble speci men recei gallo. Pleas e revie w the test requi remen ts at testd [facility] or.q [employer] .com Not Available [facility] [address] [place], [address], 02/20/2024 18:11:30 01/10/20 24 02/20/2024 DRUG MONIT OR, PANEL 5, W/CON F, URINE benzodiazepi jani TNP TEST NOT PERFO RMED No suita ble speci men recei gallo. Pleas e revie w the test requi remen ts at testd [facility] ory.q [employer] .com Not Available [address] [address] [place], [address], 02/20/2024 18:11:30 01/10/20 24 02/20/2024 DRUG MONIT OR, PANEL 5, W/CON F, URINE cocaine metabolite TNP TEST NOT PERFO RMED No suita ble speci men recei gallo. Pleas e revie w the test requi remen ts at testd [facility] or.q [employer] .com Not Available [address] [address] [place], [address], 02/20/2024 18:11:30 01/10/20 24 02/20/2024 DRUG MONIT OR, PANEL 5, W/CON F, URINE marijuana metabolite TNP TEST NOT PERFO RMED No suita ble speci men recei gallo. Pleas e revie w the test requi remen ts at testd [facility] or.q [employer] .com Not Available [facility] [address] [place], [address], 02/20/2024 18:11:30 01/10/20 24 02/20/2024 DRUG MONIT OR, PANEL 5, W/CON F, URINE methadone metabolite TNP TEST NOT PERFO RMED No suita ble speci men recei gallo. Pleas e revie w the test requi remen ts at testd [facility] or.q [employer] .[employer] Not Available [facility] [address] [place], [address], 02/20/2024 18:11:30 01/10/20 24 02/20/2024 DRUG MONIT OR, PANEL 5, W/CON F, URINE opiates TNP TEST NOT PERFO RMED No suita ble speci men recei gallo. Pleas e revie w the test requi remen ts at testd [facility] or.q [employer] .[employer] Not Available [facility] [address] [address] [place], [address], 02/20/2024 18:11:30 01/10/20 24 02/20/2024 DRUG MONIT OR, PANEL 5, W/CON F, URINE oxycodone TNP TEST NOT PERFO RMED No suita ble speci men recei gallo. Pleas e revie w the test requi remen ts at testd [facility] or.q [employer] .[employer] Not Available [facility] [address] [address] [place], [address], 02/20/2024 18:11:30 01/10/20 24 02/20/2024 DRUG MONIT OR, PANEL 5, W/CON F, URINE creatinine TNP TEST NOT PERFO RMED No suita ble speci men recei gallo. Pleas e revie w the test requi [facility]en [facility] or.q [employer] .[employer] Not Available [facility] [address] [place], [address], 02/20/2024 18:11:30 01/10/20 24 02/20/2024 DRUG MONIT ORING TEMPL ATE notes and comments This drug testi ng is for medic al treat ment only. Shaunna sis was perfo rmed as non-f orens ic testi ng and these resul ts shoul d be used only by healt hcare provi ders to rende r diagn osis or treat ment, or to monit or progr ess of medic al condi tions . Healt hcare Provi ders needi ng Inter preta tion liberty tankennedy , alexandria e conta ct us at 1.877 .40.R XTOX (1.87 [phone] ) M-F, 8am to 10pm EST Not Available [address] [address] [place], [address], 02/20/2024 18:11:31 01/11/20 24 01/13/2024 DRUG MONIT OR, PANEL 5, W/CON F, URINE amphetamines NEGATI VE NG/mL <500 Not Available [address] [address] [place], [address], 01/13/2024 22:45:13 01/11/20 24 01/13/2024 DRUG MONIT OR, PANEL 5, W/CON F, URINE barbiturates NEGATI VE NG/mL <300 Not Available [address] [address] [address], [place], [address], 01/13/2024 22:45:13 01/11/20 24 01/13/2024 DRUG MONIT OR, PANEL 5, W/CON F, URINE benzodiazepi jani NEGATI VE NG/mL <100 Not Available [address] [address] [place], [address], 01/13/2024 22:45:13 01/11/20 24 01/13/2024 DRUG MONIT OR, PANEL 5, W/CON F, URINE cocaine metabolite NEGATI VE NG/mL <150 Not Available [address] [address] [place], [address], 01/13/2024 22:45:13 01/11/20 24 01/13/2024 DRUG MONIT OR, PANEL 5, W/CON F, URINE marijuana metabolite NEGATI VE NG/mL <20 Not Available [address] [address] [place], [address], 01/13/2024 22:45:13 01/11/20 24 01/13/2024 DRUG MONIT OR, PANEL 5, W/CON F, URINE methadone metabolite NEGATI VE NG/mL <100 Not Available [address], [address], 01/13/2024 22:45:13 01/11/20 24 01/13/2024 DRUG MONIT OR, PANEL 5, W/CON F, URINE opiates NEGATI VE NG/mL <100 Not Available [address] [address] [place], [address], 01/13/2024 22:45:13 01/11/20 24 01/13/2024 DRUG MONIT OR, PANEL 5, W/CON F, URINE oxycodone NEGATI VE NG/mL <100 Not Available [address], [address], 01/13/2024 22:45:13 01/11/20 24 01/13/2024 DRUG MONIT OR, PANEL 5, W/CON F, URINE creatinine 67.0 mg/dL > or = 20.0 Not Available [address], [address], 01/13/2024 22:45:13 01/11/20 24 01/13/2024 DRUG MONIT OR, PANEL 5, W/CON F, URINE pH 7.3 4.5-9. 0 Not Available [address], [address], 01/13/2024 22:45:13 01/11/20 24 01/13/2024 DRUG MONIT OR, PANEL 5, W/CON F, URINE oxidant NEGATI VE mcg/m L <200 Not Available [address], [address], 01/13/2024 22:45:13 01/11/20 24 01/13/2024 DRUG MONIT ORING TEMPL ATE notes and comments This drug testi ng is for medic al treat ment only. Shaunna sis was perfo rmed as non-f orens ic testi ng and these resul ts shoul d be used only by healt hcare provi ders to rende r diagn osis or treat ment, or to monit or progr ess of medic al condi tions . Healt hcare Provi ders needi ng Inter preta tion liberty tance , pleas e conta ct us at 1.877 .40.R XTOX (1.87 [phone] ) M-F, 8am to 10pm EST Not Available [facility] [address] [place], [address], 01/13/2024 22:45:15 09/15/19 23 09/14/2022 MAMMO , scree nathanael, digit al, bilat eral, w/ CAD No observ ation record ed. SUGEY [facility] [address], [place], [address], 09/19/2022 15:30:03 06/22/19 24 09/14/2022 DEXA No observ ation record ed. [email or web address] [facility] [address], [place], [address], 06/29/2023 10:42:34 03/02/19 25 03/01/2024 MRI, hip, w/o contr ast No observ ation record ed. [email or web address] [facility] [address], [place], [address], 03/02/2024 14:47:24 Result Notes None recorded. Problems Name Problem SNOMED Code Status Onset Date Resolution Date Notes Provider Name and Address Organization Details Recorded Time Pain of left hip joint [id number] 9100 Completed 202004/25/2022 Kina Russo MD Attn: Lopez g,[address] [facility], [place], [address], [facility] - SI 3 16:40:52 Spinal stenosis of lumbar region [id number] Active 2020 Kina Russo MD Attn: Lopez winter,[address] [facility], [place], [address], [place] [facility] 3 15:48:38 Low back pain 493059450 Active 2020 Kina Russo MD Attn: Lopez winter,[address] [facility], [place], [address], [place] [facility] 3 15:48:38 Osteoart hritis of left hip joint 55122991961 9108 Completed 202004/25/2022 status post total hip arthropl asty, 2020 Kina Russo MD Attn: Lopez winter,[address] [facility], [place], [address], [place] [facility] 3 16:43:43 Smoker 11242403 Active 2020 Kina Russo MD Attn: Lopez winter,[address] [facility], [place], [address] [facility] 3 15:48:38 Long-ter m drug therapy Active 2022 Kina Russo MD Attn: Lopez wintre,[address] [facility], [place], [address], [place] [facility] 3 18:29:24 Menopaus e present 870236039 Active 2022 Kina Russo MD Attn: Lopez winter,[address] [facility], [place], [address], [place] [facility] 3 15:48:37 Left side sciatica 79433327209 9104 Active 2022 Kina Russo MD Attn: Lopez winter,[address] [facility], [place], [address], [place] [facility] 3 15:48:37 Mixed anxiety and depressi ve disorder 334916492 Active 2022 Kina Russo MD Attn: Lopez winter,[address] [facility], [place], [address], [place] [facility] 3 15:48:37 Body mass index 30+ - obesity 941080507 Active 2022 Kina Russo MD Attn: Lopez winter,[address] [facility], [place], [address], [place] [facility] 3 15:58:07 Allergic rhinitis caused by pollen 71884536 Active 2014 Kina Russo MD Attn: Accountshobha winter,[address] [facility], [place], [address], [place] [facility] 3 16:44:23 Gastro-e sophagea l reflux disease with esophagi tis 063882706 Active 2015 Kina Russo MD Attn: Lopez winter,[address] [place], [address], [place] [facility] 3 16:46:03 Mucocele of mouth 213642079 Active 2022 Kina Russo MD Attn: Lopez winter,[address] [place], [address], [place] [facility] 3 12:51:02 Xerostom ia 28480926 Active 2022 Kina Russo MD Attn: Lopez winter,[address] [place], [address], [place] [facility] 3 13:05:11 Acute sinusiti s 02445924 Active 2023 Kina Russo MD Attn: Lopez winter,[address] [place], [address], [place] [facility] 4 16:35:56 Tobacco dependen ce syndrome 48422284 Completed 201406/11/2014 Location : None;Sev erity: Moderate ;Progres s: Stable;A dded By: Nguyễn Herbert;Charlie d to Current Problems : YES Kina Russo MD Attn: Lopez moy,[address], [place], [address], [place] [facility] 4 16:03:29 Hyperlip idemia 61326096 Active 2012 Kina Russo MD Attn: Lopez winter,[address] [facility], [place], [address], [facility] - [facility] 3 16:48:02 Allergic rhinitis caused by pollen 92271653 Completed 201402/22/2015 Location : None;Sev erity: Moderate ;Progres s: Stable;A dded By: Dawn Johnson;Add to Current Problems : YES Kina Russo MD Attn: Lopez winter,[address] [place], [address] [place] [address], [facility] - [facility] 3 16:44:23 Benign essentia l hyperten jonathon 2802423 Active 2012 Kina Russo MD Attn: Lopez winter,[address] [place], [address], [facility] - [facility] 3 16:48:08 Gastro-e sophagea l reflux disease with esophagi tis 385683180 Completed 201501/05/2016 Location : None;Sev erity: Moderate ;Progres s: Stable;A dded By: Dawn Johnson;Add to Current Problems : NO Kina Russo MD Attn: Lopez winter,[address] [facility], [place], [address], [facility] - [facility] 3 16:46:03 Generali zed anxiety disorder 19032078 Completed 201201/12/2019 Location : None;Sev erity: Moderate ;Progres s: Stable;A dded By: Dawn Johnson;Add to Current Problems : YES Dawn wallace, [place] - [facility] 9 15:58:50 Problem Notes None recorded. Procedures Surgical History Date Name Laterality Status Provider Name and Address Organization Details Recorded Time 1 total replacement of left hip joint completed Kina Russo MD Attn: Accounting,[address] [place], [address], [place] [facility] 04/25/2022 15:50:39 9 Date of Last Pap Smear completed Ree Sanchez MA [place] - [facility] 06/29/2021 16:49:52 Imaging Results Imaging Date Name Status LastModified by Organiz ation Details LastModified Time 09/14/2022 MAMMO, screening, digital, bilateral, w/ CAD completed [facility] [address], [place], [address], 09/19/2022 15:30:03 09/14/2022 DEXA completed [address], [place], [address], 06/29/2023 10:42:34 03/01/2024 MRI, hip, w/o contrast completed [facility] [address], [place], [address], 03/02/2024 14:47:24 Procedure Notes None recorded. Medical Equipment None Reported. Allergies Allergen ID Allergen Name Allergen Category Reaction Reaction Severity Criticality Documentation Date Start Date Code Code System Note Provider Name and Address Organization Details Recorded Time 46896 codeine sulfate medicatio n nausea moderate Not available 03/03/20162012 33416 RxNorm React ion: nause a;Sev erity : Moder ate; Comme nt: Aller gy Type: Aller gy; Not Available Not Available Not Available Medications Name Sig Start Date Stop Date Status Note LastModified by Organization Details LastModified Time celecoxib 200 mg capsule TAKE 1 CAPSULE BY MOUTH TWICE DAILY 11/22 completed Not Available Not Available Not Available cyclobenzap rine 10 mg tablet Take 1 tablet before bedtime. 2024 active Not Available Not Available Not Avai lable amoxicillin 500 mg capsule TAKE 1 CAPSULE BY MOUTH THREE TIMES DAILY 11/16 completed Not Available Not Available Not Available prednisone 10 mg tablet 05/07 completed Not Available Not Available Not Available atorvastati n 20 mg tablet TAKE 1 TABLET BY MOUTH EVERY DAY active Not Available Not Available No t Available atorvastati n 10 mg tablet TAKE 1 TABLET BY MOUTH EVERY DAY IN THE EVENING 01/09 completed Not Available Not Available Not Available azithromyci n 250 mg tablet Take 2 tablet(s) by mouth on day 1 then 1 tablet every day for the next 4 days. 06/21 completed Not Available Not Available Not Available ampicillin 500 mg capsule TAKE 1 CAPSULE BY MOUTH FOUR TIMES DAILY FOR 7 DAYS 05/13 completed Not Available Not Available Not Available lisinopril 20 mg tablet TAKE 1 TABLET BY MOUTH DAILY 05/06 completed Not Available Not Available Not Available prednisone 20 mg tablet 3 tabs po qam x 2 days, then 2 tabs po qam x 4 days. (#14) 08/15 completed Not Available Not Available Not Available potassium chloride ER 10 mEq tablet,exte nded release TAKE 1 TABLET BY MOUTH EVERY DAY 05/13 completed Not Available Not Available Not Available metronidazo le 500 mg tablet TAKE 1 TABLET BY MOUTH TWICE DAILY FOR 7 DAYS 10/19 completed Not Available Not Available Not Available sulfamethox azole 800 mg-trimetho prim 160 mg tablet TAKE 1 TABLET BY MOUTH TWICE DAILY FOR 10 DAYS 05/13 completed Not Available Not Available Not Available omeprazole 40 mg capsule,del ayed release TAKE 1 CAPSULE BY MOUTH TWICE DAILY active Not Available Not Available No t Available tramadol 50 mg tablet 01/09 completed Not Available Not Available Not Available acetaminoph en 500 mg tablet TAKE 2 TABLETS BY MOUTH EVERY 6 HOURS NEEDED 11/22 completed Not Available Not Available Not Available amoxicillin 500 mg tablet TAKE 4 TABLETS BY MOUTH 1 HOUR BEFORE APPOINTME NT 06/20 completed Not Available Not Available Not Available Kenalog 40 mg/mL suspension for injection Take 60 mg by injection route as directed. 01/12 completed Not Available Not Available Not Available meloxicam 7.5 mg tablet TAKE 1 TABLET BY MOUTH TWICE DAILY 11/22 completed Not Available Not Available Not Available amoxicillin 875 mg tablet 1 tablet by mouth BID for 10 days. 07/11 completed RxNor m: [id number] 4;All ow Subst ituti on: True Not Available Not Available Not Available dicyclomine 20 mg tablet TAKE 1 TABLET BY MOUTH TWICE DAILY NEEDED 11/22 completed Not Available Not Available Not Available cephalexin 500 mg capsule TAKE 1 CAPSULE BY MOUTH EVERY 6 HOURS 05/13 completed Not Available Not Available Not Available omeprazole 20 mg capsule,del ayed release Take 1 by mouth daily 11/26 completed RxNor m: [id number] 1;All ow Subst ituti on: True Not Available Not Available Not Available montelukast 10 mg tablet TAKE 1 TABLET BY MOUTH EVERY DAY IN THE EVENING active Not Available Not Available No t Available hydrochloro thiazide 25 mg tablet TAKE 2 TABLETS BY MOUTH EVERY DAY active Not Available Not Available No t Available diclofenac sodium 50 mg tablet,shayna yed release Take 1 tablet 3 times a day by oral route with meals. 09/05 completed Not Available Not Available Not Available gabapentin 100 mg capsule 06/20 completed Not Available Not Available Not Available methylpredn isolone 4 mg tablets in a dose pack FOLLOW PACKAGE DIRECTION S 11/22 completed Not Available Not Available Not Available lisinopril 40 mg tablet TAKE 1 TABLET BY MOUTH EVERY DAY active Not Available Not Available No t Available fluticasone propionate 50 mcg/actuati on nasal spray,suspe nsion SHAKE LIQUID AND USE 1 SPRAY IN EACH NOSTRIL EVERY DAY 2024 active Not Available Not Available Not Avai lable sertraline 50 mg tablet TAKE 1 TABLET BY MOUTH EVERY DAY active Not Available Not Available No t Available amoxicillin 875 mg-potassiu m clavulanate 125 mg tablet TAKE 1 TABLET BY MOUTH EVERY 12 HOURS FOR 7 DAYS 08/15 completed Not Available Not Available Not Available oxycodone 5 mg tablet TAKE 1 TABLET BY MOUTH EVERY 4 HOURS 05/13 completed Not Available Not Available Not Available cyclobenzap rine 5 mg tablet TAKE 1 TABLET BY MOUTH EVERY 8 HOURS NEEDED 05/13 completed Not Available Not Available Not Available bupropion HCl XL 150 mg 24 hr tablet, extended release TAKE 1 TABLET BY MOUTH DAILY active Not Available Not Available No t Available duloxetine 30 mg capsule,del ayed release 04/26 completed Not Available Not Available Not Available pregabalin 25 mg capsule 06/20 completed Not Available Not Available Not Available pregabalin 50 mg capsule TAKE 1 CAPSULE BY MOUTH TWICE DAILY active Not Available Not Available No t Available aspirin active Not Available Not Avail able Not Available Eliquis 2.5 mg tablet TAKE 1 TABLET BY MOUTH TWICE DAILY 05/13 completed Not Available Not Available Not Available Stimulant Laxative Plus 8.6 mg-50 mg tablet TAKE 2 TABLETS BY MOUTH TWICE DAILY NEEDED FOR CONSTIPAT ION - HOLD FOR LOOSE STOOLS 05/13 completed Not Available Not Available Not Available Vitals Date Recorded Body height Body mass index (BMI) Body weight Body temperature Oxygen saturation Oxygen saturation in Arterial blood by Pulse oximetry Heart rate Systolic blood pressure Diastolic blood pressure Provider Name and Address Organization Details Last Updated DateTime 3 162.56 cm 33.3 kg/m2 31271.2 7 g 97.3 [degF] 97 % 97 % 83 /min 126 mm[Hg] 82 mm[Hg] Camilo Birmingham MA [facility] 3 17:17:00 Date Recorded Body height Body mass index (BMI) Body weight Body temperature Heart rate Oxygen saturation Oxygen saturation in Arterial blood by Pulse oximetry Systolic blood pressure Diastolic blood pressure Provider Name and Address Organization Details Last Updated DateTime 3 162.56 cm 33.6 kg/m2 87792.1 g 97.5 [degF] 97 /min 99 % 99 % 139 mm[Hg] 76 mm[Hg] Francisco J Del Cid MA [facility] 3 12:21:14 Date Recorded Body height Body mass index (BMI) Body weight Body temperature Oxygen saturation Oxygen saturation in Arterial blood by Pulse oximetry Heart rate Systolic blood pressure Diastolic blood pressure Provider Name and Address Organization Details Last Updated DateTime 4 162.56 cm 36 kg/m2 80811.4 g 97.5 [degF] 97 % 97 % 109 /min 123 mm[Hg] 80 mm[Hg] Bushra Lew MA [facility] 4 15:26:43 Date Recorded Body height Body mass index (BMI) Body weight Oxygen saturation Oxygen saturation in Arterial blood by Pulse oximetry Body temperature Heart rate Systolic blood pressure Diastolic blood pressure Provider Name and Address Organization Details Last Updated DateTime 4 162.56 cm 36.3 kg/m2 28812.3 9 g 95 % 95 % 97.8 [degF] 92 /min 138 mm[Hg] 82 mm[Hg] Flaquita Alcaraz [place] - [facility] 4 14:22:06 Date Recorded Body height Body mass index (BMI) Body weight Oxygen saturation Oxygen saturation in Arterial blood by Pulse oximetry Heart rate Body temperature Systolic blood pressure Diastolic blood pressure Provider Name and Address Organization Details Last Updated DateTime 5 162.56 cm 35.1 kg/m2 30418.6 4 g 96 % 96 % 108 /min 98 [degF] 134 mm[Hg] 83 mm[Hg] Flaquita Alcaraz MA [place] - [facility] 5 10:11:17 Social History Question Answer Notes LastModified by Organizat ion Details LastModified Time Tobacco Smoking Status Current Every Day Smoker Coty Huynh MA [facility] 08/19/2016 13:03:29 Do You Have An Advance Directive? No Information not available 06/29/2021 What Is Your Level Of Alcohol Consumption? None Information not available 05/07/2020 Are You Blind Or Do You Have Difficulty Seeing? No Information not available 06/29/2021 What Is Your Level Of Caffeine Consumption? Moderate Information not available 05/07/2020 Are You Currently Employed? Yes Information not available 06/29/2021 Are You Deaf Or Do You Have Serious Difficulty Hearing? No Information not available 06/29/2021 What Type Of Diet Are You Following? REGULAR Information not available 06/29/2021 What Was The Date Of Your Most Recent Tobacco Screening? 04/26/2024 Information not available 04/26/2024 What Is Your Relationship Status? Information not available 06/29/2021 Do You Use Your Seat Belt Or Car Seat Routinely? Yes Information not available 06/29/2021 Do You Have Smoke And Carbon Monoxide Detectors In Your Home? Yes Information not available 06/29/2021 Are You Passively Exposed To Smoke? Yes Information no t available 06/29/2021 How Much Tobacco Do You Smoke? 0.25 PPD Information not available 01/10/2024 Do You Feel Stressed (tense, Restless, Nervous, Or Anxious, Or Unable To Sleep At Night)? [id number] Information not available 06/29/2021 Do You Use Any Illicit Or Recreational Drugs? No Information not available 08/19/2020 Has Tobacco Cessation Counseling Been Provided? No Information not available 08/19/2020 How Many Years Have You Smoked Tobacco? 20 Information not available 05/07/2020 Do You Or Have You Ever Used Any Other Forms Of Tobacco Or Nicotine? No Information not available 05/07/2020 Sex: Female Functional Status Question Answer Note LastModified by Organization D etails LastModified Time Are you able to care for yourself? Yes Information n ot available 06/29/2021 What is your exercise level? None Information not available 06/29/2021 Mental Status None recorded. Family History Relationship Description Onset Age of this Age Resolved Age Notes LastModified by Organization Details LastModified Time Mother Dementia [email or web address] Not availabl e 08/19/2016 13:03:15 Mother Hypertensive disorder [email or web address] Not available 16:13:35 Father Depressive disorder [email or web address] Not available 2016 13:03:23 Medical History Condition Response High Blood Pressure Y Anxiety Disorder Y Acid Reflux (GERD) Y Gynecological History Statement/Question Response Date of Last Pap Smear 07/27/2018 Obstetrics History GPAL:G 0 P 0 0 0 0 Immunizations Vaccine Type Date Status Note Provider Nam e and Address Organization Details Recorded Time COVID-19 vaccine, vector-nr, rS-Ad26, PF, 0.5 mL 1 completed CLAUDIA Qureshi Attn: Accounting[address] [place], [address], [place] [facility] 01/09/2024 21:27:02 COVID-19, mRNA, LNP-S, PF, 30 mcg/0.3 mL dose 1 completed CLAUDIA Qureshi Attn: Accounting[address] [place], [address], [place] [facility] 01/09/2024 21:27:02 COVID-19, mRNA, LNP-S, bivalent, PF, 30 mcg/0.3 mL dose 2 completed CLAUDIA Qureshi Attn: Accounting,[address] [facility], [place], [address], [facility] 01/09/2024 21:27:02 Influenza, split virus, quadrivalent, preservative 8 completed Not Available [facility] 03/17/2019 02:49:49 Tdap 5 completed Not Available [facility] 03/31/2019 02:11:37 Influenza, split virus, quadrivalent, preservative 5 completed Not Available [facility] 03/31/2019 02:11:37 Td (adult), 2 Lf tetanus toxoid, preservative free, adsorbed 6 completed AGUSTIN Qureshi-Jose Attn: Accounting,[address] [facility], [place], [address], [facility] 01/09/2024 21:27:02 DT (pediatric) 5 completed Not Available [facility] 03/03/2016 05:18:15 MMR 1 completed Not Available [facility] 03/03/2016 05:18:15 OPV 3 completed Not Available [facility] 03/03/2016 05:18:16 Influenza, split virus, trivalent, PF 4 completed MARCIN Billings, [place] - [facility] 01/10/2024 15:02:54 Past Encounters Encounter ID Performer Location Encounter Start Date Encounter Closed Date Diagnosis/Indication Diagnosis SNOMED-CT Code Diagnosis ICD10 Code Diagnosis Note [id number] Coty Huynh MA [facility] [address] [place] [address] 08/19/2016 11:46:08 08/19/2016 15:33:07 Acute maxillary sinusitis 66196845 J01.00 Low back pain 557305336 M54.5 Chest wall pain 17938691 6 R07.89 Mixed hyperlipidemia 267 124010 E78.2 Cigarette smoker 8644515 7 F17.207 [id number] [facility] [address] [place] [address] 01/25/2017 14:07:34 01/25/2017 17:09:44 Benign essential hypertension 0855363 I10 Generalize d anxiety disorder 68235132 F41.1 Low back pain 196998360 M54.5 Allergic r hinitis caused by pollen 09648067 J30.1 [id number] [place] [address] [place] [address] 04/15/2017 12:30:40 04/15/2017 15:58:58 Acute maxillary sinusitis 46872135 J01.00 [id number] Reva ambrocio [place] [address] [place] [address] 08/17/2017 15:11:08 08/18/2017 10:39:45 Dysuria 97257448 R30.0 Essential hypertension 08598937 I10 Generalize d anxiety disorder 31600326 F41.1 Gastroesop hageal reflux disease without esophagitis 738850284 K21.9 Change in skin lesion 39 5163888 L98.9 Low back pain 791347113 M54.5 [id number] [place] [address] [place] [address] 12/14/2017 12:47:21 12/16/2017 13:59:05 Seasonal allergic rhinitis 622092224 J30.2 Administra tion of influenza vaccine 41706544 Z23 Colon canc er screening declined 1985400353 9109 Z53.20 will discuss at next visit [id number] CLAUDIA Pringle [facility] [address] [place] [address] 06/21/2018 14:56:33 06/21/2018 17:08:40 Lumbago with sciatica 451372901 M54.42 Trochanter ic bursitis of left hip 3548559241 57277 M70.62 [id number] [place] [address] [place] [address] 07/27/2018 16:03:23 07/28/2018 08:42:23 Lumbago with sciatica 554656960 M54.42 Gynecologi c examination 20688829 Z01.419 Essential hypertension 81332145 I10 Mixed anxi ety and depressive disorder 688784346 F41.8 Gastroesop hageal reflux disease without esophagitis 701892082 K21.9 Allergic r hinitis caused by pollen 74719237 J30.1 [id number] [facility] [address] [place] [address] 01/12/2019 15:18:00 01/15/2019 09:10:59 Seasonal allergic rhinitis 694071454 J30.2 Mixed anxi ety and depressive disorder 033715646 F41.8 Intentiona l weight loss 143861438 R63.8 18 pounds in 6 mos [id number] [place] [address] [place] [address] 01/22/2019 17:02:20 01/23/2019 09:16:35 Benign essential hypertension 8294783 I10 Hyperlipidemia 22526820 E78.5 Mixed anxi ety and depressive disorder 830809635 F41.8 cont same dose for now [id number] [facility] [address] [place] [address] 05/07/2019 16:21:27 05/08/2019 11:26:12 Mixed hyperlipidemia 700693560 E78.2 Mixed anxi ety and depressive disorder 044496936 F41.8 cont same dose for now Gastroesop hageal reflux disease without esophagitis 479295968 K21.9 Essential hypertension 70670610 I10 Benign ess ential hypertension 1690909 I10 Lumbago with sciatica 20 8308807 M54.42 Allergic r hinitis caused by pollen 99844279 J30.1 [id number] [facility] [address] [place] [address] 11/19/2019 14:57:45 11/19/2019 17:24:08 Unintentional weight gain 9923892477 89189 R63.5 25 pounds Lumbar spondylosis 43190 0009 M47.896 is seeing chiropract or for treatment Recurrent falls 14856452 2 R29.6 fell at work parking lot x 2 [id number] HERMELINDO Bailey [facility] [address] [place] [address] 12/17/2019 13:04:12 12/17/2019 17:00:17 Seasonal allergic rhinitis 504955875 J30.2 continue flonase and singulair regularly, watch for colored purulent drainage, SOB, cough, fever, etc. If any of those happen she is to stay home until well and recommend COVID testing. She swears this is just her horrible seasonal allergies [id number] Dawn Johnson [facility] [address] [place] [address] 05/07/2020 13:25:22 05/07/2020 16:05:26 Low back pain 801056465 M54.5 Arthritis of left hip 10 30893088 100148 M13.852 Benign ess ential hypertension 7517903 I10 [id number] CLAUDIA Pringle [facility] [address] [place] [address] 08/19/2020 15:26:41 08/20/2020 14:24:25 Essential hypertension 67962488 I10 at goal Pain of le ft hip joint 2232945392 99113 M25.552 scheduled for left hip arthoplast y Pre-surger y evaluation 552083013 Z01.818 cleared for surgery Hypokalemia 80307919 E87 .6 potassium 3.3 on scarlett and HCTZ. 10 meq of potassium added. will check BMP on Tuesday and then follow up with BMP 1-2 weeks after surgery.Dr Johnson to consider decresing HCTZ as she is on 50mg an currently BP is under good control Smoker 38096687 F17.415 [id number] Dawn Johnson [facility] [address] [place] [address] 04/14/2021 09:34:38 04/14/2021 17:13:42 Dysuria 45003978 R30.0 no antibiotic indicated [id number] HERMELINDO Bailey [facility] [address] [place] [address] 05/13/2021 14:21:57 05/14/2021 10:29:30 Abdominal pain 54283139 R10.9 likely IBS type picture. Encouraged colonoscop y, she will do after . Will consider CT abd sooner if symptoms worsen or persist before the colonoscop y or if labs indicate the need. Anemia fol lowing acute postoperative blood loss 2071034280 1259220 D62 if remains, will get stool for FIIT before colonoscop y scheduled Stomach cramps 32420206 R10.9 food avoidance discussed like excess caffeine, grease, spice, acid, etc. [id number] [facility] [address] [place] [address] 06/29/2021 15:57:41 06/29/2021 17:55:44 Gynecologic examination 64745989 Z01.419 Screening for malignant neoplasm of colon 316907939 Z12.11 patient has a referral for colonoscop y already with Dr. Connell and promised to do Cigarette smoker 9953571 7 F17.651 [id number] [facility] [address] [place] [address] 10/19/2021 15:29:16 10/19/2021 17:24:21 History of abnormal cervical Papanicolaou smear 056092371 Z87.42 Hyperlipidemia 43527801 E78.5 Benign ess ential hypertension 0732929 I10 Allergic rhinitis 878363 04 J30.9 [id number] [facility] [address] [place] [address] 11/16/2021 11:43:14 11/16/2021 18:03:13 Low back pain 602385306 M54.50 if patient calls back -- refer for CT abd/pelvis to r/o problems Left side sciatica 08382 33771 73047 M54.32 Body mass index 30+ - obesity 265000946 Z68.31 Smoker 10362198 F17.650 [id number] Kina Russo MD [facility] [address] [place] [address] 04/21/2022 16:27:33 04/26/2022 10:38:02 Benign essential hypertension 7096575 I10 # HTN- {{Controll ed* Nearly controlled Suboptima lly controlled Uncontrol led}}- Continue current medication s. No change in management - Encouraged routine blood pressure checksat home, targetless than 140/90- DiscussedD MILI diet(https ://www.nhl bi.nih.gov /files/doc s/public/h eart/dash_ brief.pdf) anddietary sodium restrictio ns- Continue/I ncrease dietary efforts and physical activity Hyperlipidemia [id number] E78.5 # Hyperlipid emia- Last lipid panel {{< >*}} 1 year ago- ACC/AHA CV risk {{< >*}} 7.5%- Repeat {{today at earliest convenienc e* prior to next visit in one year}}- Continue with current management without changes.- Focus on a dietlow in saturated fats(https ://www.[facility] fhealth.or g/educatio n/guidelin es-for-a-l ow-cholest dayo-low-s aturated-f at-diet),b lood pressure control,sm oking cessation( http://ezequiel tyes.org/) anddaily exerciseto reduce your risk ofheart disease and stroke. Left side sciatica 45301 [id number] 36650 M54.32 - ongoing symptoms, severe, debilitati ng- previously seen by orthopedic back surgeon, now out of area- reviewed options: pain management , with possible injections , neurosurge ry/orthope dic back surgery- trial of skeletal muscle relaxant for symptom-re lief, along with ongoing meloxicam Mixed anxi ety and depressive disorder [id number] F41.8 # Anxiety / Depression Increased with recent issues/fam ayaan stressorsC ontinue meds - patient advised we can adjust/inc rease medication s if necessary Long-term drug therapy 035667347 Z79.899 Checking routine labwork for ongoing long-term medication use. Screening mammography of bilateral breasts [id number] 43541 Z12.31 Menopause present 782223 006 N95.1 Z13.820 Screening for malignant neoplasm of colon 635470042 Z12.11 Body mass index 30+ - obesity 424656626 Z68.33 Focus on a healthy diet, avoid added salt, and [id number] calories or less daily. Exercise as tolerated, targeting3 0-60 minutes of exercise daily, at least 5 days per week Smoker 61737415 F17.200 precontemp lative - readdress at follow-up Allergic r hinitis caused by pollen 07200868 J30.1 # Allergic rhinitisMo derate persistent symptoms.C ontinue with intranasal corticoste roid, oral antihistam ine, and allergen avoidance. Continue leukotrien e inhibitor. Gastro-eso phageal reflux disease with esophagitis 851368133 K21.00 # GERD {{Continue current treatment with parts counterman proton pump inhibitor, low-dose* Continue current treatment with parts counterman proton pump inhibitor, high-dose Continue current treatment with longterm H2 molina Em piric low-dose proton pump inhibitor treatment x 12 weeks and re-evaluat e}} No suspected reflux complicati ons (Rascon/s tricture) Lifestyle modificati on: weight loss, avoid meals 2-3 hours before bedtime Consider limiting or eliminatin g food triggers:c hocolate, caffeine, citrus fruits/jui francis, alcohol, acid/spicy food.Smoki ng cessation if indicatedY early vitamin B12 and folic acid levels for parts counterman proton pump inhibitor use [id number] Kina Russo MD [facility] [address] [place] [address] 11/22/2022 11:57:02 11/22/2022 17:35:27 Benign essential hypertension [id number] I10 # HTN- {{Controll ed* Nearly controlled Suboptima lly controlled Uncontrol led}}- Continue current medication s. No change in management - Encouraged routine blood pressure checksat home, targetless than 140/90- DiscussedD MILI diet(https ://www.nhl bi.nih.gov /files/doc s/public/h eart/dash_ brief.pdf) anddietary sodium restrictio ns- Continue/I ncrease dietary efforts and physical activity Hyperlipidemia 05910018 E78.5 # Hyperlipid emia- Last lipid panel {{<* >}} 1 year ago- ACC/AHA CV risk {{< >*}} 7.5%- Repeat {{today at earliest convenienc e prior to next visit* in one year}}- Continue with current management without changes.- Focus on a dietlow in saturated fats(https ://www.[facility] fhealth.or g/educatio n/guidelin es-for-a-l ow-cholest dayo-low-s aturated-f at-diet),b lood pressure control,sm oking cessation( http://ezequiel tyes.org/) anddaily exerciseto reduce your risk ofheart disease and stroke. Left side sciatica 49609 88524 41478 M54.32 - following with neurosurge jami, interventi onal pain management - cyclobenza mary - increase dosing it tolerates- await injection therapy Mixed anxi ety and depressive disorder 055659031 F41.8 # Anxiety / Depression Increased with recent issues/fam ayaan stressorsC ontinue meds - patient advised we can adjust/inc rease medication s if necessary Gastro-eso phageal reflux disease with esophagitis 073983877 K21.00 # GERD{{Cont inue current treatment with parts counterman proton pump inhibitor, low-dose* Continue current treatment with longterm proton pump inhibitor, high-dose Continue current treatment with parts counterman H2 molina Em piric low-dose proton pump inhibitor treatment x 12 weeks and re-evaluat e}}No suspected reflux complicati ons (Rascon/s tricture)L ifestyle modificati on: weight loss, 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 Continue leukotrien e inhibitor. Smoker 03967684 F17.200 precontemp lative - readdress at follow-up Body mass index 30+ - obesity 425704917 Z68.33 Focus on a healthy diet, avoid added salt, and [id number] calories or less daily. Exercise as tolerated, targeting3 0-60 minutes of exercise daily, at least 5 days per week Long-term drug therapy 738497372 Z79.899 Checking routine labwork for ongoing long-term medication use. Mucocele of mouth 841775 008 K13.79 - consultati on with otolaryngo logy Xerostomia 36207393 R68. 2 - encouraged smoking cessation, increased gum chewing, hard candies- try biotene or similar [id number] Kina Russo MD [facility] [address] [place] [address] 06/21/2023 14:59:23 06/22/2023 09:44:23 Hyperlipidemia 48932190 E78.5 # Hyperlipid emia Last lipid panel ~ 1 year ago ACC/AHA CV risk {{< >*}} 7.5% (8.8%) Repeat {{today at earliest convenienc e* prior to next visit in one year}} Continue with current management without changes. Focus on a dietlow in saturated fats(https ://www.[facility] fhealth.or g/educatio n/guidelin es-for-a-l ow-cholest dayo-low-s aturated-f at-diet),b lood pressure control,sm oking cessation( http://ezequiel tyes.org/) anddaily exerciseto reduce your risk ofheart disease and stroke. Benign ess ential hypertension 1772535 I10 # HTN {{Controll ed* Nearly controlled Suboptima lly controlled Uncontrol led}} Continue current medication s. No change in management Encouraged routine blood pressure checksat home, targetless than 140/90 DiscussedD MILI diet(https ://www.nhl bi.nih.gov /files/doc s/public/h eart/dash_ brief.pdf) anddietary sodium restrictio ns Continue/I ncrease dietary efforts and physical activity Left side sciatica 33649 20838 56968 M54.32 following with neurosurge ry, interventi onal pain management cyclobenza mary - primary use at bedtime with acetaminop hen for improved sleepinter ventional pain management injection therapy w/ some relief Mixed anxi ety and depressive disorder 068368868 F41.8 # Anxiety{{/ Depression * /Panic attacks /I nsomnia}} KIRAN-7 score: {{0 1 2 3 4* 5 6 7 8 9 10 11 1 2 13 14 15 16 17 18 19 20 21}} , {{none (0 4 )* mild (5 9 ) moderate (10 1 4) severe (15 2 1)}} PHQ-9 score: {{0 1 2* 3 4 5 6 7 8 9 10 11 1 2 13 14 15 16 17 18 19 20 21 2 2 23 24 25 26 27}}, {{minimal (0 4 )* mild (5 9 ) moderate (10 1 4) moderat vivien severe (15 1 9) severe (20-27)}} {{Stable, continue current treatment. * Stable, patient interested in adjusting medication : Suboptim al, adusting treatment: }} - Recommende d Cognitive Behavioral Therapy (https://w bobo.psychol ogytoday.c om/us/ther apy-types/ cognitive- behavioral -therapy) - Encouraged relaxation techniques (https://w bobo.[facility]/jorgePodioy/cdr o/learning -- Communitie s/wellness /stress/st ress_hando uts/) - Stress management resources (https://w bobo.[facility]/Wakoziy/cdr o/learning -- Communitie s/wellness /stress/st ress_resou rces/) - Self-care handouts (https://yancy mann.[facility].keyshawn styles/self-ca re-handout s/) - Recommende d mindfulnes s meditation and exercise. - Sleep hygiene (https://o omcenter .[facility].edu/s leep-hygie ne/) Gastro-eso phageal reflux disease with esophagitis 348071158 K21.00 # GERDPatien t with breakthrou gh symptoms despite hi dosing of PPI. 30 day trial of double-dos ed high-dose proton pump inhibitorN o suspected reflux complicati ons (Rascon/s tricture)L ifestyle modificati on: weight loss, avoid meals 2-3 hours before bedtimeCon quantitative research analyst limiting or eliminatin g food triggers:c hocolate, caffeine, citrus fruits/jui francis, alcohol, acid/spicy food.Smoki ng cessation if indicatedY early vitamin B12 and folic acid levels for longterm proton pump inhibitor use Allergic r hinitis caused by pollen 92135949 J30.1 # Allergic rhinitisMo derate persistent symptoms.C ontinue with intranasal corticoste roid, oral antihistam ine, and allergen avoidance. Continue leukotrien e inhibitor. Smoker 65971649 F17.200 reports cutting down to 5 cigs/day - readdress at follow-up Body mass index 30+ - obesity 209011397 Z68.33 Focus on a healthy diet, avoid added salt, and [id number] calories or less daily. Exercise as tolerated, targeting3 0-60 minutes of exercise daily, at least 5 days per week Long-term drug therapy 456229153 Z79.899 Checking routine labwork for ongoing long-term medication use. Acute sinusitis 92950533 J01.90 # Sinusitis, acute, bacterialS tarted amox/clav. oral corticoste roidsDecon gestants, intranasal corticoste roid and saline.Con tinue supportive therapy. [id number] AGUSTIN Qureshi-Jose [facility] [address] [place] [address] 01/10/2024 14:00:30 01/13/2024 15:40:18 Benign essential hypertension 7373048 I10 -Controlle d on current therapy. -Goals: BP < 140/90 per JNC8, prevent CV and renal comorbidit ies. -Should notify office for BP less than 90/60. -Maintain a low sodium (less than 2000mg) diet and encouraged at least 30-45 minutes of aerobic activity most days of the week -Healthy weight -Encourage d smoking cessation- pt not ready to quit. Will consider after back surgery. -f/u 6 months Mixed anxi ety and depressive disorder 505073122 F41.8 -pt PHQ elevated because of her pain and she has been out of her pregabalin for 1 week. She feel much better when she is taking it. She likes her current anxiety/de pression medication regimen and would like to continue. Hyperlipidemia 25203934 E78.5 -Will repeat lipid panel today, increased atorvastat in at last visit 6 months ago.-Will adjust if needed Gastroesop hageal reflux disease without esophagitis 653704506 K21.9 -Recommend lifestyle modificati ons:-Hondo te the head of the bed to reduce nocturnal reflux-Fabien id large meals, spicy or acidic foods, caffeine, alcohol, and tobacco-En courage weight loss if applicable -Suggest eating smaller, more frequent meals-Prov esha education on GERD, including triggers, lifestyle modificati ons, and the chronic nature of the condition. Smoker 08166954 F17.200 -Discussed with pt to quit smoking, says she has cut back to 5/day. She will consider cessation after she gets her back pain under control. Obesity 760638423 E66.9 1. Restrict Caloric Intake: Instead of calculatin g total calories, you can eliminate one food item from daily intake at a time that would be worth of 100-200 kcal. Minimize Processed carbohydra carol ann (Potatoes, Pasta, Bread, rice and corn) and processed sugars (Sodas, Cookies, Donuts & Desserts). Small plates and bowels. Small meals (Under 250kcal) at a time! 2. Quality of Diet: Organic, Non-GMO, fresh, raw-food, whole-food & more fruits and vegetables . Look for lean protein (Soy, Lentils, beans, legumes and nuts). Avoid processed food (frozen, canned, fast-food) . Shop food economical ly from multiple places. 3. Stress Reduction: Yoga, Mindfulnes s, Exercise, Volunteeri ng, Spirituali ty! Mindfulnes s eating (Avoid multi-task ing while eating and Increase awareness of what food is doing to Body). 4. Quality Restful Sleep: Melatonin, Yoga-Nidra , Kiwi fruit. Avoid meals in last two hours of the day. Avoid Caffeine, alcohol, high sugar/ankita erts and tobacco with or after dinner. 5. Increase Exertion within Daily Activities : [id number] Steps/day. Avoid Elevators, escalators at public places. Increase steps in parking lots!. Screening for malignant neoplasm of colon 416007777 Z12.11 -Pt did not complete previous cologuard. Agreed to have another one sent to home to complete. Chronic back pain 948099 002 G89.29 -Pt was seeing pain management who was refilling medication but they discharged her back to ortho.-Edwin montes prescribe pregabalin until pt gets in to see ortho.-rel ieves pain from 12/07 to 04/09.-cont ract signs and UDS given. Administra tion of influenza vaccine 26289275 Z23 [id number] AGUSTIN Qureshi-Jose [facility] [address] [facility] [address] 04/26/2024 09:57:51 04/27/2024 11:21:35 Benign essential hypertension 8598842 I10 -Controlle d on current therapy.-G oals: BP < 140/90 per JNC8, prevent CV and renal comorbidit ies.-Shoadwoa d notify office for BP less than 90/60.-Meg ntain a low sodium (less than 2000mg) diet and encouraged at least 30-45 minutes of aerobic activity most days of the week-Healt hy weight-Enc ouraged smoking cessation- pt is quitting on Tuesday for upcoming surgery.-f /u 6 months Left side sciatica 27380 92971 29009 M54.32 -only takes in PM at bedtime. Chronic back pain 127702 002 G89.29 -UDS given at last appt, clear-take s in AM and PM; hopefully with surgery will not need it after her recovery is over. Ortho aware of pregabalin and flexeril per consult note. Pain in ri ght hip joint [id number] 68725 M25.551 having right hip replaced on June 19 with [facility]-will back pre-op appt when she leaves today Hyperlipidemia 43414657 E78.5 -repeating lipid panel today, pt was not fasting with lipid panel at her last visit. Health Concerns Section Related Observation LastModified by Organization Detai ls LastModified Time None Recorded Concern Status LastModified by Organization Details LastModified Time None Recorded Advance Directives Directive N: Payers Encounter Date Sequence Insurance Name Policy Number Policy Lane Covered Member ID Lane Member ID Guarantor Name 04/21/2022 1 [employer] (O) [id number] Onur Doña Ana [id number] Laxmi Guerra 11/22/2022 1 [employer] (PPO) [id number] Onur Doña Ana [id number] 1 Laxmi E Do[place] 06/21/2023 1 [employer] - [employer] LOC[employer] [address] Laxmi E Do[place] [id number] Laxmi E [place] 01/10/2024 1 [employer] [address] Laxmi E Do[place] [id number] Laxmi E [place] 04/26/2024 1 [employer] [address] Laxmi E Doña Ana [id number] Laxmi E [place] Notes Date Note Type Note Provider Name and Address Organization Details Recorded Time 3 text/html Hypertension F/UReported bypatient.Associated Symptoms:no dizziness; no lightheadedness; no chest pain; no shortness of breath; no palpitations; no edema; no calf pain with exertion Lifestyle:regular exercise; limiting/avoiding salt Medications:taking medications as directed; no side effects from medication 6-MONTH FOLLOW-UP VISIT/SUBJECTIVE: The patient presents for routine 6-month follow-up of hypertension, hyperlipidemia, gastroesophageal reflux disorder, and seasonal allergic rhinitis, among other chronic conditions Last office visit: [id number] labwork: Patient reports consistent use of medications, without side effects or intolerances. Current concerns:- persistent left sciatica/piriformis syndrome - debilitating- pet dog recently diagnosed with advanced cancer, they are going to euthanize, very upsetting- very significant stress with 's ongoing health issues Health maintenance:- Immunizations due:- Colorectal cancer screening:COLOGUARD (order)- Well-woman exam: 10/19- Mammography:ORDER- DEXA:ORDER- LDCT: current smoker, < 30 pack-years Left-sided sciatica- ongoing, severe, limits activities- left total hip 2020, follow-up with orthopedics this past summer - good- had seen back specialist who was briefly with [facility], but they addressed her hip first and now that specialist has left the practice- significant lumbar spine degenerative changes per orthopedics (our last imaging is from 2018 Hypertension- On {{ amlodipine atenolol shanti zepril bisoprolol bumetanid e candesartan carvedilol ch lorthalidone clonidine dilt iazem doxazosin enalapril f urosemide guanfacine hydral azine hydrochlorothiazide i ndapamide labetalol lisinop ril* losartan metolazone me toprolol nadolol nebivolol nicardipine perindopril pro pranolol quinapril ramipril sotalol spironolactone tel misartan terazosin torsemid e trandolapril triamterene valsartan verapamil}}, {{ amlodipine atenolol shanti zepril bisoprolol bumetanid e candesartan carvedilol ch lorthalidone clonidine dilt iazem doxazosin enalapril f urosemide guanfacine hydral azine hydrochlorothiazide* indapamide labetalol lisino pril losartan metolazone me toprolol nadolol nebivolol nicardipine perindopril pro pranolol quinapril ramipril sotalol spironolactone tel misartan terazosin torsemid e trandolapril triamterene valsartan verapamil}}- {{Consistent* Inconsistent} } use of medications- {{Reports Does not report any*}} headaches, blurry vision, dizziness, chest pain, shortness of breath, or palpitations- {{Following* Not following}} a low salt diet.- {{Exercising Not exercising Limited exercise*}} due to sciatica Hyperlipidemia- {{Consistent use of lipid-lowering medication(s)* Inconsistent use of lipid-lowering medication(s) On no medication(s) at this time}}- {{No side effects* Notes side effects including:}}- {{Following* Not following}} a low-cholesterol diet- Last lipid panel {{< >*}} 1 year ago Anxiety/Depression- {{Consistent* Inconsistent} } use of {{SSRI SNRI bupropion medic ations*}}. {{No side effects* Side effects, including:}}- {{Not attending* Attending}} psychotherapy/counseling- Experiencing {{more* less the same amount of}} physical and emotional stress- {{Exercising* Not exercising}} - limited by sciatica- Sleeping {{more* less about}} than 6 hours- {{Reports Denies*}} panic attacks- No chest pain, palpitations, dyspnea, or gastrointestinal symptoms- {{Denies Endorses*}} depression- {{Denies* Endorses}} suicidal ideation- {{Denies* Reports}} manic symptoms- {{Denies* Reports}} hallucinations Gastroesophageal reflux disorder- {{Complaint No complaint*}} of heartburn/regurgitation on {{no medication [id number]-cgx-xcqwwfo antacids H2 molina proton pump inhibitor high-dose proton pump inhibitor*}}- {{Denies* Reports}} cough, shortness of breath, sore throat, changes of taste- {{+ No*}} dysphagia- {{+ No*}} chest pain Seasonal allergic rhinitisSymptoms controlled with montelukast, fluticasone nasal spray Nicotine dependence- precontemplative, has quit previously -[employer]/Nursing note reviewed.- Kina Russo MD Attn: Accounting,[address] [place] [address], [phone], [facility] 04/25/2022 17:05:40 3 text/html Hypertension F/UReported bypatient.Associated Symptoms:no dizziness; no lightheadedness; no chest pain; no shortness of breath; no palpitations; no edema; no calf pain with exertion Lifestyle:regular exercise; limiting/avoiding salt Medications:taking medications as directed;side effects from medications(pt has been having dry mouth)Notes:pt wants to discuss 2 of her medspt says she is in so much pain that it is hard for her to do daily activitiespt needs a referral for scar tissue in her mouth 6-MONTH FOLLOW-UP VISIT/SUBJECTIVE: Ashley presents for routine 6-month follow-up of hypertension, hyperlipidemia, gastroesophageal reflux disorder, and seasonal allergic rhinitis, among other chronic conditions Last routine Follow-up visit: [id number] labwork: [id number] Patient reports consistent use of medications, without side effects or intolerances. Current concerns:- sciatica worsening, but has established with neurosurgery and interventional pain management-- pain management stopped non-steroidal anti-inflammatory drugs, planning on injection therapy-- pain is worse, patient relying on skeletal muscle relaxants for relief - usually just at bedtime- lesion/scar tissue - left inner cheek- dry mouth Health maintenance:- Immunizations due: COVID booster, vzv, flu, RSV - aware- Colorectal cancer screening: did not complete cologuard- Well-woman exam: 10/19- Mammography: [id number]- DEXA: pending- LDCT: current smoker, < 30 pack-years Left-sided sciatica- ongoing, severe, limits activities- left total hip 2020, follow-up with orthopedics this past summer - good- see above Hypertension- On {{ amlodipine atenolol shanti zepril bisoprolol bumetanid e candesartan carvedilol ch lorthalidone clonidine dilt iazem doxazosin enalapril f urosemide guanfacine hydral azine hydrochlorothiazide i ndapamide labetalol lisinop ril* losartan metolazone me toprolol nadolol nebivolol nicardipine perindopril pro pranolol quinapril ramipril sotalol spironolactone tel misartan terazosin torsemid e trandolapril triamterene valsartan verapamil}}, {{ amlodipine atenolol shanti zepril bisoprolol bumetanid e candesartan carvedilol ch lorthalidone clonidine dilt iazem doxazosin enalapril f urosemide guanfacine hydral azine hydrochlorothiazide* indapamide labetalol lisino pril losartan metolazone me toprolol nadolol nebivolol nicardipine perindopril pro pranolol quinapril ramipril sotalol spironolactone tel misartan terazosin torsemid e trandolapril triamterene valsartan verapamil}}- {{Consistent* Inconsistent} } use of medications- {{Reports Does not report any*}} headaches, blurry vision, dizziness, chest pain, shortness of breath, or palpitations- {{Following* Not following}} a low salt diet.- {{Exercising Not exercising Limited exercise*}} due to sciatica Hyperlipidemia- {{Consistent use of lipid-lowering medication(s)* Inconsistent use of lipid-lowering medication(s) On no medication(s) at this time}}- {{No side effects* Notes side effects including:}}- {{Following* Not following}} a low-cholesterol diet- Last lipid panel {{< >*}} 1 year ago Anxiety/Depression- {{Consistent* Inconsistent} } use of {{SSRI SNRI bupropion medic ations*}}. {{No side effects* Side effects, including:}}- {{Not attending* Attending}} psychotherapy/counseling- Experiencing {{more* less the same amount of}} physical and emotional stress- {{Exercising* Not exercising}} - limited by sciatica- Sleeping {{more* less about}} than 6 hours- {{Reports Denies*}} panic attacks- No chest pain, palpitations, dyspnea, or gastrointestinal symptoms- {{Denies Endorses*}} depression- {{Denies* Endorses}} suicidal ideation- {{Denies* Reports}} manic symptoms- {{Denies* Reports}} hallucinations Gastroesophageal reflux disorder- {{Complaint No complaint*}} of heartburn/regurgitation on {{no medication mwgf-xiq-tnzdjsc antacids H2 molina proton pump inhibitor high-dose proton pump inhibitor*}}- {{Denies* Reports}} cough, shortness of breath, sore throat, changes of taste- {{+ No*}} dysphagia- {{+ No*}} chest pain Seasonal allergic rhinitisSymptoms controlled with montelukast, fluticasone nasal spray Nicotine dependence- precontemplative, has quit previously -[employer]/Nursing note reviewed.- Kina Russo MD Attn: Accounting,[address] [place], [address], [facility] 11/22/2022 13:06:24 4 text/html HyperlipidemiaReported bypatient.Duration:chronic Current Therapy:currently taking: (atorvastatin 10mg); last cholesterol level: (167); last LDL level: (95); last triglyceride level: (100); last HDL level: (52); last non HDL level: (115); as of 07/02/2022 Compliance:does not exercise Complications:no coronary artery disease; no peripheral artery disease; no cardiovascular disease Risk Factors:hypertensionHyperte nsion F/UReported bypatient.Associated Symptoms:no dizziness; no lightheadedness; no chest pain; no shortness of breath; no palpitations; no edema; no calf pain with exertion Lifestyle:limiting/avoiding salt;not exercising regularly(having issues with back) Medications:taking medications as directed; no side effects from medication 6-MONTH FOLLOW-UP VISIT/SUBJECTIVE: Ashley presents for routine 6-month follow-up of hypertension, hyperlipidemia, gastroesophageal reflux disorder, and seasonal allergic rhinitis, among other chronic conditions Last routine Follow-up visit: [id number] labwork: [id number] Patient reports consistent use of medications, without side effects or intolerances. Current concerns:congestedears cloggedheadacheno sore throat1 week of symptoms- Using kgcv-bum-jvrfkky meds with minimal relief. Health maintenance:Immunizations due: COVID booster, vzv, RSVColorectal cancer screening:did not complete cologuard - patient awareWell-woman exam: 10/19Mammography: [id number]:completed - not in our records - AndersonLDCT: current smoker, > 20 pack-years Left-sided sciaticaongoing, severe, limits activitiesseeing neurosurgery for radiculopathy - going through stepwise process prior to surgerycurrent interventional pain managementhistory of left total hip 2020, follow-up with ortho 2022, good resultusing tramadol (from ) once weekly on the weekend for improved relief of symptoms Hypertension On {{ amlodipine atenolol shanti zepril bisoprolol bumetanid e candesartan carvedilol ch lorthalidone clonidine dilt iazem doxazosin enalapril f elodipine fosinopril furose mide guanfacine hydralazine hydrochlorothiazide* indap amide irbesartan labetalol lisinopril losartan metolaz one metoprolol nadolol nebi volol nicardipine nifedipin e olmesartan perindopril pr azosin propranolol quinapri l ramipril sotalol spironol actone telmisartan terazosi n torsemide trandolapril tr iamterene valsartan verapam il}}{{ , amlodipine , atenolol , benazepril , bisoprolol , bumetanide , candesartan , carvedilol , chlorthalidone , clonidine , diltiazem , doxazosin , enalapril , felodipine , fosinopril , furosemide , guanfacine , hydralazine , hydrochlorothiazide , indapamide , irbesartan , labetalol , lisinopril* , losartan , metolazone , metoprolol , nadolol , nebivolol , nicardipine , nifedipine , olmesartan , perindopril , prazosin , propranolol , quinapril , ramipril , sotalol , spironolactone , telmisartan , terazosin , torsemide , trandolapril , triamterene , valsartan , verapamil}} {{Consistent* Inconsistent} } use of medications {{Reports Does not report any*}} headaches, blurry vision, dizziness, chest pain, shortness of breath, or palpitations {{Following* Not following}} a low salt diet. {{Exercising Not exercising* Limited exercise}} - chronic low back pain, radiculopathy Hyperlipidemia {{Consistent use of lipid-lowering medication(s)* Inconsistent use of lipid-lowering medication(s) On no medication(s) at this time}} {{No side effects* Notes side effects including:}} {{Following* Not following}} a low-cholesterol diet Last lipid panel ~ 1 year ago Anxiety/Depression{{Consist ent* Inconsistent}} use of {{SSRI SNRI bupropion medic ations*}}. {{No side effects* Side effects, including:}}{{Not attending* Attending}} psychotherapy/counselingExp eriencing {{more* less the same amount of}} physical and emotional stress{{Exercising* Not exercising}} - limited by sciaticaSleeping {{more* less about}} than 6 hours{{Reports Denies*}} panic attacksNo chest pain, palpitations, dyspnea, or gastrointestinal symptoms{{Denies Endorses*} } depression{{Denies* Endorse s}} suicidal ideation{{Denies* Reports}} manic symptoms{{Denies* Reports}} hallucinations Gastroesophageal reflux disorder {{Complaint* No complaint}} of heartburn/regurgitation on {{no medication gjel-znz-gvpdtwi antacids H2 molina proton pump inhibitor high-dose proton pump inhibitor*}} {{Denies* Reports}} cough, shortness of breath, sore throat, changes of taste {{+ No*}} dysphagia {{+ No*}} chest pain Seasonal allergic rhinitisSymptoms controlled with montelukast, fluticasone nasal spray Nicotine dependenceprecontemplative, has quit previously, currently at 5 cigs/day -[employer]/Nursing note reviewed.- Kina Russo MD Attn: Accounting,[address] [facility], [place], [address], [facility] 06/21/2023 19:41:34 4 text/html Anxiety/DepressionReported bypatient.Quality:symptoms same Severity:denies suicidal ideations; able to maintain relationships; does not interfere with activities of daily living Duration:frequent Onset/Timing:still present Context:major life stressors(pt health) Modifying Factors:social support; medications as directed Associated Symptoms:denies homicidal ideations; no significant weight gain; no significant weight loss; no visual/auditory hallucinations; no delusions; no shortness of breath; mood good; no crying spells; no panic; sleeping well; appetite good;anxiety;depression;soc ial withdrawal(because of pain)HyperlipidemiaReported bypatient.Current Therapy:currently taking: (atorvastatin 20mg); last cholesterol level: (168); last LDL level: (91); last triglyceride level: (243); last HDL level: (43); last non HDL level: (125); 08-23-23 Compliance:compliant with diet;does not exercise Complications:no coronary artery disease; no peripheral artery disease; no cardiovascular disease Risk Factors:hypertensionHyperte nsion F/UReported bypatient.Associated Symptoms:no dizziness; no lightheadedness; no chest pain; no shortness of breath; no palpitations; no edema; no calf pain with exertion Lifestyle:limiting/avoiding salt;not exercising regularly Medications:taking medications as directed;side effects from medications(DULoxetine pt has been having a hard time getting up in the morning pt wants to talk about) Pt denies any chest pain, tightness, SOB, heart palpitations or light headedness. Pts biggest complaint is her chronic back pain. She is seeing a neurosurgeon but was referred to pain management. Pain management told her she needed to go back to neurosurgery due to new hip pain. Her pain management MD moved and she asked if I would fill her pregabalin until she sees her neurosurgeon at the beginning of February. They are going to discuss surgery at this time since she trialed PT and pain management. She rates her pain 2/10 when sitting but 10/10 when she is walking. CLAUDIA Qureshi Attn: Accounting,[address] [place] [address], [id number], [facility] 01/11/2024 10:24:19 text/html Back PainReported bypatient.Location:pain radiating to the buttocks;pain radiating to the legs Quality:sharp Severity:worsening;severe (8-10) Duration:chronic Context:prior back problems; used medications for back pain Alleviating Factors:laying down Aggravating Factors:standing, walking Associated Symptoms:no fever; no weak limbs; no numbness of the legs/feet; no tingling; no incontinence;shortness of breath(when she is in a lot of pain) CLAUDIA Qureshi Attn: Accounting,[address] [place], [address], [facility] 04/26/2024 11:37:54 OBGyn Episode No OBEpisode recorded.
--- OUTSIDE RECORDS SUMMARY | 2024-05-31 08:02 | XMS_ITS | Clinical Summary ---
Author Organization [facility] Address [address] [place] [id number] Care Team Providers Care Leach Cell Operator Name Role Phone Unavailable Primary Care Provider Unavailabl e Social History Tobacco Use Types Packs/Day Years Used Date Smoking Tobacco: Never Assessed Comments Unknown Sex and Gender Information Value Date Recorded Sex Assigned at Not on file Legal Sex Female 7:24 PM CDT Gender Identity Not on file Sexual Orientation Not on file Plan of Treatment Health Maintenance Due Date Last Done Comments Cervical Cancer Screening Pa p Smear (Age 30 to 64) Every 3 Years 1960 Colorectal Cancer Screening Colonoscopy (10 Years) 1960 Annual Physical 11/30/1963 Hepatitis C 1978 DTaP, Tdap and Td Vaccines ( 1 - Tdap) 11/30/1979 Cervical Cancer Screening Pa p with HPV Testing (Age 30 to 64) Every 5 Years 1990 Cervical Cancer Screening with HPV 1990 Mammogram Screening 2000 Zoster Vaccines (1 of 2) 2010 COVID-19 Vaccine (2023-2 5 season) 2023 Influenza Adult (#1) 2023 RSV Immunization or 60+ Years (1 - 1-dose 75+ series) 11/30/2035 Meningococcal B Vaccine Aged Out No l onger eligible based on patient's age to complete this topic Meningococcal Vaccine Aged Out No bessie azra eligible based on patient's age to complete this topic Pneumococcal Vaccine: Pediat rics (0 to 5 Years) and At-Risk Patients (6 to 64 Years) Aged Out No longer eligible b ased on patient's age to complete this topic RSV Immunizations Under 20 Months Aged Out No longer eligible based on patient's age to complete this topic
--- OUTSIDE RECORDS SUMMARY | 2024-05-31 08:02 | XMS_ITS | Clinical Summary ---
Author Organization [facility] Address [address] [place] [id number] Care Team Providers Care Heel Sorter Name Role Phone Jose Be MD Primary Care Provider + Allergies No known active allergies Medications lisinopriL (PRINIVIL,ZESTRIL ) 40 mg tablet Take 1 tablet (40 mg total) by mouth daily 0 Active buPROPion XL (WELLBUTRIN XL) 150 mg 24 hr tablet Take 1 tablet (150 mg total) by mouth daily 1 Active sertraline (ZOLOFT) 50 mg tablet Take 1 tablet (50 mg total) by mouth daily Active omeprazole (PriLOSEC) 40 mg capsule Take 1 capsule (40 mg total) by mouth daily 0 Active hydroCHLOROthiazi de (HYDRODIURIL) 25 mg tablet Take 1 tablet (25 mg total) by mouth daily Active montelukast (SINGULAIR) 10 mg tablet Take 1 tablet (10 mg total) by mouth daily Active fluticasone propionate (FLONASE) 50 mcg/actuation nasal spray Administer into each nostril daily Active calcium carbonate-vitamin D3 (Calcium 600 + D,3,) 1500 mg (600 mg elemental) -400 units per tablet 1 Active aspirin 81 mg enteric coated tablet Take 1 tablet (81 mg total) by mouth daily Active apple cider vinegar 600 mg capsule Take 1,200 mg by mouth daily Active cranberry 400 mg capsule Take 4,200 mg by mouth daily Active melatonin 10 mg tablet Take 1 tablet (10 mg total) by mouth nightly Active ascorbic rqbv-lnssfuzg-uyk 1,000 mg powder effervescent in packet Take 1 packet by mouth daily Active cyclobenzaprine (FLEXERIL) 10 mg tabletIndications :Muscle Spasm Take 1 tablet (10 mg total) by mouth nightly Active acetaminophen-asp irin-caffeine (EXCEDRIN MIGRAINE) 250-250-65 mg per tablet Active traMADoL (ULTRAM) 50 mg tablet Take 1 tablet (50 mg total) by mouth every 8 (eight) hours as needed for pain 15 tablet 4 Active atorvastatin (LIPITOR) 20 mg tablet Take 1 tablet (20 mg total) by mouth daily 4 Active vitamin U-sadhaiwobdpd-ze neral (Emergen-C) 500 mg tablet,chewable Take by mouth [address] (CYMBALTA) 30 mg capsule TAKE 1 CAPSULE(30 MG) BY MOUTH DAILY 30 capsule 6 4 Active pregabalin (LYRICA) 50 mg capsuleIndication s:Lumbar radiculopathy TAKE 1 CAPSULE(50 MG) BY MOUTH TWICE DAILY 60 capsule 2 4 Active Active Problems Problem Noted Date Diagnosed Date Lumbar facet arthropathy 05/27/2023 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 Surgical History Surgery Date Site/Laterality Comments TOTAL HIP ARTHROPLASTY 08/26/2020 Left OTHER SURGICAL HISTORY 01/28/2023 Left buccal lesion excised Medical History Medical History Date Comments Hypertension GERD (gastroesophageal reflux disease) Arthritis Depression Low back pain Joint pain Extremity pain Anxiety Lesion of buccal mucosa left buc honorio lesion Social History Tobacco Use Types Packs/Day Years Used Date Smoking Tobacco: Every Day Cigarettes Smokeless Tobacco: Never Tobacco Cessation:Ready to Q uit: Not Asked; Counseling Given: Not Answered AUDIT-C Answer Date Recorded Q1: How often do you have a drink containing alc ohol? Never 08/26/2023 Average Number of Drinks Not on file 024 Frequency of Binge Drinking Not on file 07/30 Comments No Sex and Gender Information Value Date Recorded Sex Assigned at Not on file Legal Sex Female 9:58 AM CDT Gender Identity Not on file Sexual Orientation Not on file Obstetrics History Last Filed Vital Signs Vital Sign Reading Time Taken Comments Blood Pressure 105/77 10/13/2023 8:48 AM CDT Pulse 87 10/13/2023 8:48 AM CDT Temperature 36.5 C (97.7 F) 10/13/2023 8:48 AM CDT Respiratory Rate 16 10/13/2023 8:48 AM CDT Oxygen Saturation 100% 08/26/2023 9:36 AM CDT Inhaled Oxygen Concentration - - Weight 93 kg (205 lb) 10/13/2023 8:48 AM CDT Height 160 cm (5' 3 ) 10/13/2023 8:48 AM CDT Body Mass Index 36.31 10/13/2023 8:48 AM CDT Plan of Treatment Health Maintenance Due Date Last Done Comments Breast Cancer Screening-Mammogram 1960 Cervical Cancer Screening 1960 Colon Cancer Screening-Colonoscopy 1960 Depression Screening 1960 Hepatitis C Screening 1960 Hepatitis B Screening 1978 Regular Well Visit/Exam 18-64 1978 Pneumococcal vaccine <65 (1 of 2 - PCV) 11/30/1979 Zoster Vaccine (1 of 2) 2010 Covid-19 Vaccine (4 - season) 2023 01/22/2022, 01/02/2021, 05/15/2020 Influenza Vaccine (#1) 2023 12/14/2017, 2014 DTaP/Tdap/Td Vaccine (4 - Td or Tdap) 12/24/2024 12/24/2014, 11/17/2005, 09/07/1974 Goals Goal Patient Goal Type Associated Problems Recent Progress Patient-Stated? Author CCM Chronic Pain Care Plan Chronic Care Management Improving( 8:51 AM CDT) No Erika Anguiano, RN Note: Problem: Chronic Pain Goals: 1. Minimize further functional decline 2. Maximize quality of life 3. Control pain Strategies: - Activity/exercise program recommendation - Conservative stepwise pain medicine strategy with multi-disciplinary approach - Recommend healthy lifestyle strategies and compensatory methods as needed Reduce the likelihood of falling Lifestyle No Erika Anguiano, RN Note: Below are four things you can do to prevent falls: Begin an exercise program to improve your leg strength & balance Ask your doctor or pharmacist to review your medicines Get annual eye check-ups & update your eyeglasses Make your home safer by: Removing clutter & tripping hazards Putting railings on all stairs & adding grab bars in the bathroom Having good lighting, especially on stairs Contact your local community or [facility] for information on exercise, fall prevention programs, or options for improving home safety. Insurance [employer] Care Teams Heel Sorter Relationship Specialty Start Date End Date Jose Be MD PCP - General Internal Medicine 04/27/22
--- OUTSIDE RECORDS SUMMARY | 2024-05-31 08:02 | XMS_ITS | Referral Summary ---
Author Organization [facility] Address [facility] [place] [address] Care Team Providers Care Engineering Test Specialist Name Role Phone Jose Be MD Primary [...] mg total) by mouth nightly Active ascorbic pcmc-njecfxsf-wlk 1,000 mg powder effervescent in packet Take [...] total) by mouth daily 4 Active vitamin K-wtighhdxelsy-md neral (Emergen-C) 500 mg tablet,chewable Take by mouth [address] (CYMBALTA) 30 mg capsule TAKE 1 CAPSULE(30 MG) BY MOUTH DAILY 30 capsule 6 4 Active pregabalin (LYRICA) 50 mg capsuleIndication s:Lumbar radiculopathy TAKE 1 CAPSULE(50 MG) BY MOUTH TWICE DAILY 60 capsule 2 4 Active Active Problems Problem Noted Date Diagnosed Date Lumbar facet arthropathy 05/27/2023 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 Author CCM Chronic Pain Care Plan Chronic Care Management Improving( 8:51 AM CDT) No Erika Anguiano, JUNIOR Note: Problem: Chronic Pain Goals: 1. Minimize further functional decline 2. Maximize quality of life 3. Control pain Strategies: - Activity/exercise program recommendation - Conservative stepwise pain medicine strategy with multi-disciplinary approach - Recommend healthy lifestyle strategies and compensatory methods as needed Reduce the likelihood of falling Lifestyle Erika Powell, JUNIOR Note: Below are four things you can [...] on stairs Contact your local community or senior center for information on exercise, fall prevention programs, or options for improving home safety. [place] [address] Care Teams Engineering Test Specialist Relationship Specialty Start Date End Date Jose Be MD PCP - General Internal Medicine 04/27/22
--- NOTE | 2024-05-31 08:57 | ECG_ITS ---
Test Date: 2024-05-31 09:09:33 Measurements Intervals [place] Rate: 75 P: 20 MI: 196 QRS: 17 QRSD: 89 T: 25 QT: 363 QTc: 408 Interpretive Statements SINUS RHYTHM LOW QRS VOLTAGE IN PRECORDIAL LEADS BASELINE ARTIFACT- I, II, III, AVR, AVL, AVF, V1-V6 BORDERLINE ECG No previous ECG available for comparison Electronically Signed On 05-31-2024 09:16:46 CDT by Oliverio Ledbetter D.O.
[2024-05-31 09:29] LABS: Basophils Absolute Auto 0.1 K/mm3 (0.0-0.1); Basophils Percent Auto 1.4 % (0.2-1.2); Eosinophils Absolute Auto 0.2 K/mm3 (0-0.3); Eosinophils Percent Auto 3.3 % (0-4.4); Hemoglobin 12.8 g/dL (12.0-15.0); Immature Granulocyte Absolute 0.02 K/mm3 (0.00-0.031); Immature Granulocyte Percent A 0.3 % (0-0.5); Lymphocytes Absolute Auto 2.28 K/mm3 (0.9-3.2); Lymphocytes Percent Auto 36.2 % (18.3-44.2); Mean Corpuscular HGB Conc 35.6 g/dl (32-36); Mean Corpuscular Hemoglobin 31.1 pg (26-34); Mean Corpuscular Volume 87.4 fl (80-100); Mean Platelet Volume 9.9 fl (7.4-10.4); Monocytes Absolute Auto 0.5 K/mm3 (0.1-0.6); Monocytes Percent Auto 7.8 % (2.6-8.5); Neutrophils Absolute Auto 3.2 K/mm3 (1.3-6.7); Platelet Count Result 333 k/mm3 (150-375); Red Blood Count 4.12 M/mm3 (4.2-5.4); Red Cell Distribution Width 12.6 % (11.5-14.5); White Blood Count 6.3 K/mm3 (4.5-10.0)
[2024-05-31 09:51] LABS: Urine Cotinine NEGATIVE
[2024-05-31 09:55] LABS: Albumin Level 4.4 g/dL (3.5-5.1); Anion Gap 9 mmol/L (4-12); Blood Urea Nitrogen 11 mg/dL (7-17); Carbon Dioxide 28 mmol/L (22-30); Chloride 89 mmol/L (98-107); Estimated Glomerular Filt Rate > 60; Glucose 97 mg/dL (65-110); Potassium 4.1 mmol/L (3.4-5.0); Sodium 126 mmol/L (137-145)
[2024-05-31 10:22] LABS: Hemoglobin A1C 5.8 % (<5.7)
== END 2024-05-31 07:50 | disposition home or self-care (01) ==
PROVIDERS: Visit Provider Orthopaedic Surgery
DX: M16.11 Unilateral primary osteoarthritis, right hip (principal); Z01.818 Encounter for other preprocedural examination; R94.31 Abnormal electrocardiogram [ECG] [EKG]
CPT/HCPCS: 80048; 80307; 82040; 83036; 85025; 87081; 93005

== ENCOUNTER 2024-06-08 06:52 | Outpatient (CLI) | payer OTHER, SELFPAY ==
--- OUTSIDE RECORDS SUMMARY | 2024-06-08 07:01 | XMS_ITS | Data Portability ---
Author Organization [facility] Address [address] [place] [address] Care Team Providers Care Decorator Inspector Name Role Phone KINA RUSSO Primary Care Provider Assessment No assessment recorded. Plan of Treatment Reminders Order Date Submit Date Provider Last Modified By Organization Details Last Modified Time Details Appointments ANY 15 2024 09:00A AGUSTIN Hanks-Jose Not available Not available Not available Lab lipid panel, serum 2024 025 [facility], [address] [facility], [place], [address], 04/27/2024 13:42:28 lipid panel, serum 2023 024 [facility], [address] [facility], [place], [address], 02/20/2024 18:11:27 TSH, serum or plasma 2023 024 [facility], [address] , [place], [address], 02/20/2024 18:11:29 drug screen, urine 2023 024 [facility], [address] [facility], [place], [address], 01/13/2024 22:45:14 noninvasi ve colorecta l cancer DNA + occult blood screening , QL, stool [address] [facility] [employer] (Cologuard Orders Only), [address], [address], [place], [address], 01/10/2024 14:54:02 CMP, serum or plasma 2023 024 [facility], [address], [place], [address], 02/20/2024 18:11:28 CMP, serum or plasma 2023 024 [facility], [address], [place], [address], 07/21/2023 16:24:10 CBC w/ auto diff 2023 024 [facility], [address], [place], [address], 07/21/2023 16:24:10 magnesium , serum or plasma 2023 024 [facility], [address], [place], [address], 07/21/2023 16:24:10 lipid panel, serum 2023 024 [facility] ?[facility], [address] , [place], [address], 07/21/2023 16:24:10 vitamin B12 + folate, serum or blood 2023 024 [facility], [address] , [place], [address], 07/21/2023 16:24:10 BMP, serum or plasma 2022 023 [facility], [address], [place], [address], 11/23/2022 15:36:26 magnesium , serum or plasma 2022 023 [facility], [address] , [place], [address], 11/23/2022 15:36:25 Referral ENT surgery referral 2022 023 SUGEY Beltrán MD, [address], [place], [address], 12/16/2022 16:24:14 Procedures None recorded. Surgeries None recorded. Imaging None recorded. Medication Orders pregabali n 50 mg capsule 2024 025 [facility] #30676, [address] [facility], [place], [place], [id number], 04/26/2024 10:39:31 cyclobenz aprine 10 mg tablet 2024 025 [facility] #54869, [address] [facility], [place], [place], [id number], 04/26/2024 11:37:19 hydrochlo rothiazid e 25 mg tablet 2024 025 [facility] [employer] [facility] #96540, [address] [facility], [place], [place], [id number], 04/26/2024 10:39:28 bupropion HCl XL 150 mg 24 hr tablet, extended release 2023 024 [facility] #47888, [address] [facility], [place], [place], [id number], 01/10/2024 14:54:02 pregabali n 50 mg capsule 2023 024 [facility] #77980, [address] [facility], [place], [place], [id number], 01/10/2024 14:54:02 omeprazol e 40 mg capsule,d elayed release 2023 024 [facility] #63359, [address] [facility], [place], [place], [id number], 06/21/2023 16:39:02 amoxicill in 875 mg-potass ium clavulana te 125 mg tablet 2023 024 [facility] #05989, [address] [facility], [place], [place], [id number], 08/16/2023 19:25:34 prednison e 20 mg tablet 2023 024 [facility] #48083, [address] [facility], [place], [place], [id number], 08/16/2023 19:25:46 hydrochlo rothiazid e 25 mg tablet 2023 024 [facility] #22666, [address] [facility], [place], [place], [id number], 06/21/2023 19:43:12 atorvasta tin 10 mg tablet 2023 024 [facility] #90370, [address] [facility], [place], [place], [id number], 01/10/2024 14:08:30 Patient TargetsNo targets recorded. Patient Instructions Encounter Date Encounter Id Patient Instructions Last Modified By Organization Details Last Modified Time 11/22/2022 [id number] high cholesterol : care instructions [email or web address] [...] pneumonia. Currently, this is a single immunization, [id number], if you have never previously been immunized. Yearly influenza immunization is recommended, and typically available beginning in mid-October. I highly encourage all who are able to complete an initial immunization series against COVID19, along with boosters as indicated by age or medical history. Consider obtaining an RSV immunization. For more information: https://www.cdc.gov/va ccines/vpd/rsv/index.h tml ____ Exercise recommendations: It is recommended [...] [email or web address] Not available 11/22/2022 12:56:00 06/21/2023 [id number] Acute Sinusitis: Care Instructions [email or web address] Not available 06/21/2023 16:38:51 learning about h igh blood pressure [email or web address] Not available 06/21/2023 16:38:51 high cholesterol : care instructions [email or web address] Not available 06/21/2023 16:38:51 learning about h ealthy weight [email or web address] Not available 06/21/2023 16:38:51 Ashley, - Thank raeann cloud for your [...] an RSV immunization. For more information: https://www.cdc.gov/va boaznes/vpd/rsv/index.h tml ____ Exercise recommendations: - It is [...] [email or web address] Not available 06/21/2023 16:39:51 01/10/2024 [id number] Quitting Tobacco : Care Instructions [email or web address] Not available 01/10/2024 14:54:01 A healthy lifest yle: care instructions jreuss Not available 01/10/2024 14:54:02 Reason for Referral ENT Surgery Referral for Muc ocele of mouth Referring Physician: Kina Russo, Family Medicine, Encounter Date: 11/22/2022 Results Created Date Observation Date Name Description Value Unit Range Abnormal Flag Note LastModifiedBy Organization Detail LastModifiedTime 11/23/1911/23/2022 MAGNE SIUM magnesium 2.1 mg/dL 1.5-2. 5 normal Not Available [address], [address], 11/23/2022 15:36:25 11/23/19 23 11/23/2022 BASIC METAB OLIC PANEL glucose 88 mg/dL 65-99 normal Fasti ng refer ence inter anna Not Available [address], [address], 11/23/2022 15:36:26 11/23/19 23 11/23/2022 BASIC METAB OLIC PANEL urea nitrogen (BUN) 14 mg/dL 7-25 normal Not Available [address], [address], 11/23/2022 15:36:26 11/23/19 23 11/23/2022 BASIC METAB OLIC PANEL creatinine 0.90 mg/dL 0.50-1 .05 normal Not Available [address], [address], 11/23/2022 15:36:26 11/23/19 23 11/23/2022 BASIC METAB OLIC PANEL eGFR 73 mL/mi n/1.7 3m2 > or = 60 normal Not Available [address], [address], 11/23/2022 15:36:26 11/23/19 23 11/23/2022 BASIC METAB OLIC PANEL BUN/creatini ne ratio SEE NOTE: (calc ) 6-22 Not Repor charity: BUN and Creat inine are withi n refer ence range . Not Available [address], [address], 11/23/2022 15:36:26 11/23/19 23 11/23/2022 BASIC METAB OLIC PANEL sodium 133 mmol/ L 135-14 6 low Not Available [address], [address], 11/23/2022 15:36:11/23/19 23 11/23/2022 BASIC METAB OLIC PANEL potassium 4.2 mmol/ L 3.5-5. 3 normal Not Available [address], [address], 11/23/2022 15:36:26 11/23/19 23 11/23/2022 BASIC METAB OLIC PANEL chloride 97 mmol/ L 98-110 low Not Available [address] [address] [place], [address], 11/23/2022 15:36:26 11/23/19 23 11/23/2022 BASIC METAB OLIC PANEL carbon dioxide 29 mmol/ L 20-32 normal Not Available [address], [address], 11/23/2022 15:36:26 11/23/19 23 11/23/2022 BASIC METAB OLIC PANEL calcium 9.6 mg/dL 8.6-10 .4 normal Not Available [address], [address], 11/23/2022 15:36:26 08/23/19 24 08/24/2023 LIPID PANEL , STAND JOON cholesterol, total 168 mg/dL <200 normal Not Available [address], [address], 08/24/2023 03:57:56 08/23/19 24 08/24/2023 LIPID PANEL , STAND JOON HDL cholesterol 43 mg/dL > or = 50 low Not Available [facility] [address] [place], [address], 08/24/2023 03:57:56 08/23/1908/24/2023 LIPID PANEL , STAND JOON triglyceride s 243 mg/dL <150 high If a non-f astin g speci men was colle cted, consi rosario repea t trigl yceri de testi ng on a fasti ng speci men if clini libby indic ated. Camilo pickett et al. J. of Clin. Lipid ol. 2015; 9:129 -169. Not Available [address], [address], 08/24/2023 03:57:56 08/23/19 24 08/24/2023 LIPID PANEL [...] lated using the Norma n-Hop kins calcu stephanie n, which is a valid ated novel vanceo d corey talavera r accur acy than the Fried zhane equat ion in the estim ation of LDL-C . Norma fernandez SS et al. MARZENA. 2013; 310(1 9): 2061- 2068 (http ://ed ucati on.Qu estDi Sarbaris. com/f aq/FA Q164) Not Available [facility] [address] [place], [address], 08/24/2023 03:57:56 08/23/19 24 08/24/2023 LIPID PANEL , STAND JOON chol/HDLC ratio 3.9 (calc ) <5.0 normal Not Available [address] [address] [place], [address], 08/24/2023 03:57:56 08/23/1908/24/2023 LIPID PANEL , STAND JOON non HDL cholesterol 125 mg/dL _(honorio c) <130 normal For patie nts with diabe carol ann plus 1 major ASCVD risk facto r, treat ing to a non-H DL-C goal of <100 mg/dL (LDL- C of <70 mg/dL ) is consi dered a thera peuti c optio n. Not Available [address] [place], [address], 08/24/2023 03:57:56 08/23/19 24 08/24/2023 MAGNE SIUM magnesium 1.9 mg/dL 1.5-2. 5 normal Not Available [address], [address], 08/24/2023 03:57:56 08/23/19 24 08/24/2023 COMPR EHENS ROSANNE METAB OLIC PANEL glucose 109 mg/dL 65-99 high Fasti ng refer ence inter anna For someo ne witho ut known diabe carol ann, a gluco se value betwe en 100 and 125 mg/dL is consi stent with predi abete s and shoul d be confi rmed with a follo w-up test. Not Available [address], [address], 08/24/2023 03:57:57 08/23/19 24 08/24/2023 COMPR EHENS ROSANNE METAB OLIC PANEL urea nitrogen (BUN) 13 mg/dL 7-25 normal Not Available [address], [address], 08/24/2023 03:57:57 08/23/19 24 08/24/2023 COMPR EHENS ROSANNE METAB OLIC PANEL creatinine 0.89 mg/dL 0.50-1 .05 normal Not Available [address] [address] [place], [address], 08/24/2023 03:57:57 08/23/19 24 08/24/2023 COMPR EHENS ROSANNE METAB OLIC PANEL eGFR 73 mL/mi n/1.7 3m2 > or = 60 normal Not Available [address], [address], 08/24/2023 03:57:57 08/23/19 24 08/24/2023 COMPR EHENS ROSANNE METAB OLIC PANEL BUN/creatini ne ratio SEE NOTE: (calc ) 6-22 Not Repor charity: BUN and Creat inine are withi n refer ence range . Not Available [address], [address], 08/24/2023 03:57:57 08/23/19 24 08/24/2023 COMPR EHENS ROSANNE METAB OLIC PANEL sodium 136 mmol/ L 135-14 6 normal Not Available [address] [address] [place], [address], 08/24/2023 03:57:57 08/23/19 24 08/24/2023 COMPR EHENS ROSANNE METAB OLIC PANEL potassium 4.2 mmol/ L 3.5-5. 3 normal Not Available [address], [address], 08/24/2023 03:57:57 08/23/19 24 08/24/2023 COMPR EHENS ROSANNE METAB OLIC PANEL chloride 100 mmol/ L 98-110 normal Not Available [address], [address], 08/24/2023 03:57:57 08/23/19 24 08/24/2023 COMPR EHENS ROSANNE METAB OLIC PANEL carbon dioxide 29 mmol/ L 20-32 normal Not Available [address] [address] [place], [address], 08/24/2023 03:57:57 08/23/19 24 08/24/2023 COMPR EHENS ROSANNE METAB OLIC PANEL calcium 9.3 mg/dL 8.6-10 .4 normal Not Available [address], [address], 08/24/2023 03:57:57 08/23/19 24 08/24/2023 COMPR EHENS ROSANNE METAB OLIC PANEL protein, total 6.6 g/dL 6.1-8. 1 normal Not Available [address], [address], 08/24/2023 03:57:57 08/23/19 24 08/24/2023 COMPR EHENS ROSANNE METAB OLIC PANEL albumin 4.2 g/dL 3.6-5. 1 normal Not Available [address], [address], 08/24/2023 03:57:57 08/23/19 24 08/24/2023 COMPR EHENS ROSANNE METAB OLIC PANEL globulin 2.4 g/dL_ (calc ) 1.9-3. 7 normal Not Available [address], [address], 08/24/2023 03:57:57 08/23/19 24 08/24/2023 COMPR EHENS ROSANNE METAB OLIC PANEL albumin/glob ulin ratio 1.8 (calc ) 1.0-2. 5 normal Not Available [address], [address], 08/24/2023 03:57:57 08/23/19 24 08/24/2023 COMPR EHENS ROSANNE METAB OLIC PANEL bilirubin, total 0.4 mg/dL 0.2-1. 2 normal Not Available [address], [address], 08/24/2023 03:57:57 08/23/19 24 08/24/2023 COMPR EHENS ROSANNE METAB OLIC PANEL alkaline phosphatase 64 U/L 37-153 normal Not Available [facility] [employer] [address], [address], 08/24/2023 03:57:57 08/23/19 24 08/24/2023 COMPR EHENS ROSANNE METAB OLIC PANEL AST 15 U/L 10-35 normal Not Available [address], [address], 08/24/2023 03:57:57 08/23/19 24 08/24/2023 COMPR EHENS ROSANNE METAB OLIC PANEL ALT 14 U/L 6-29 normal Not Available [address], [address], 08/24/2023 03:57:57 08/23/19 24 08/24/2023 CBC (INCL UDES DIFF/ PLT) white blood cell count 6.0 thous and/u L 3.8-10 .8 normal Not Available [address], [address], 08/24/2023 03:57:57 08/23/19 24 08/24/2023 CBC (INCL UDES DIFF/ PLT) red blood cell count 4.08 james on/uL 3.80-5 .10 normal Not Available [address], [address], 08/24/2023 03:57:57 08/23/19 24 08/24/2023 CBC (INCL UDES DIFF/ PLT) hemoglobin 12.7 g/dL 11.7-1 5.5 normal Not Available [address], [address], 08/24/2023 03:57:57 08/23/19 24 08/24/2023 CBC (INCL UDES DIFF/ PLT) hematocrit 38.6 % 35.0-4 5.0 normal Not Available [employer] [address], [address], 08/24/2023 03:57:57 08/23/19 24 08/24/2023 CBC (INCL UDES DIFF/ PLT) MCV 94.6 fL 80.0-1 00.0 normal Not Available [address], [address], 08/24/2023 03:57:57 08/23/19 24 08/24/2023 CBC (INCL UDES DIFF/ PLT) MCH 31.1 pg 27.0-3 3.0 normal Not Available [facility] [address], [address], 08/24/2023 03:57:57 08/23/19 24 08/24/2023 CBC (INCL UDES DIFF/ PLT) MCHC 32.9 g/dL 32.0-3 6.0 normal Not Available [address], [address], 08/24/2023 03:57:57 08/23/19 24 08/24/2023 CBC (INCL UDES DIFF/ PLT) RDW 13.1 % 11.0-1 5.0 normal Not Available [address], [address], 08/24/2023 03:57:57 08/23/19 24 08/24/2023 CBC (INCL UDES DIFF/ PLT) platelet count 358 thous and/u L 140-40 0 normal Not Available [address], [address], 08/24/2023 03:57:57 08/23/19 24 08/24/2023 CBC (INCL UDES DIFF/ PLT) MPV 10.1 fL 7.5-12 .5 normal Not Available [address], [address], 08/24/2023 03:57:57 08/23/19 08/24/2023 CBC (INCL UDES DIFF/ PLT) absolute neutrophils 3036 cells /uL 1500-7 800 normal Not Available [address], [address], 08/24/2023 03:57:57 08/23/19 24 08/24/2023 CBC (INCL UDES DIFF/ PLT) absolute lymphocytes 2328 cells /uL 850-39 00 normal Not Available [address], [address], 08/24/2023 03:57:57 08/23/19 24 08/24/2023 CBC (INCL UDES DIFF/ PLT) absolute monocytes 330 cells /uL 200-95 0 normal Not Available [address], [address], 08/24/2023 03:57:57 08/23/19 24 08/24/2023 CBC (INCL UDES DIFF/ PLT) absolute eosinophils 228 cells /uL 15-500 normal Not Available [address], [address], 08/24/2023 03:57:57 08/23/19 24 08/24/2023 CBC (INCL UDES DIFF/ PLT) absolute basophils 78 cells /uL 0-200 normal Not Available [address], [address], 08/24/2023 03:57:57 08/23/19 24 08/24/2023 CBC (INCL UDES DIFF/ PLT) neutrophils 50.6 % normal Not Available [address], [address], 08/24/2023 03:57:57 08/23/19 24 08/24/2023 CBC (INCL UDES DIFF/ PLT) lymphocytes 38.8 % normal Not Available [address], [address], 08/24/2023 03:57:57 08/23/19 24 08/24/2023 CBC (INCL UDES DIFF/ PLT) monocytes 5.5 % normal Not Available [address], [address], 08/24/2023 03:57:57 08/23/19 24 08/24/2023 CBC (INCL UDES DIFF/ PLT) eosinophils 3.8 % normal Not Available [address], [address], 08/24/2023 03:57:57 08/23/19 24 08/24/2023 CBC (INCL UDES DIFF/ PLT) basophils 1.3 % normal Not Available [address], [address], 08/24/2023 03:57:57 08/23/19 24 08/24/2023 VITAM IN B12/F OLATE , SERUM PANEL vitamin B12 675 pg/mL 200-11 00 normal Not Available [address], [address], 08/24/2023 03:57:58 08/23/19 24 08/24/2023 VITAM IN B12/F OLATE , SERUM PANEL folate, serum 17.6 NG/mL normal Refer ence Range Low: <3.4 Borde rline : 3.4-5 .4 Hilda l: >5.4 Not Available [address], [address], 08/24/2023 03:57:58 01/10/20 24 02/20/2024 LIPID PANEL , STAND JOON cholesterol, total 147 mg/dL <200 normal Not Available [address], [address], 02/20/2024 18:11:26 01/10/20 24 02/20/2024 LIPID PANEL , STAND JOON HDL cholesterol 48 mg/dL > or = 50 low Not Available [address] [address] [address], [place], [address], 02/20/2024 18:11:26 01/10/20 24 02/20/2024 LIPID PANEL , STAND JOON triglyceride s 181 mg/dL <150 high Not Available [facility] [address] [address] [address] , [place], [address], 02/20/2024 18:11:26 01/10/20 24 02/20/2024 LIPID PANEL [...] lated using the Norma n-Hop kins calcu stephanie n, which is a valid ated novel vanceo d briani patel pylete r accur acy than the Fried zhane equat ion in the estim ation of LDL-C . Norma fernandez SS et al. MARZENA. 2013; 310(1 9): 2061- 2068 (http ://ed ucati on.Qu Emili [employer]. com/f aq/FA Q164) Not Available [address] [address] [address], [place], [address], 02/20/2024 18:11:26 01/10/20 24 02/20/2024 LIPID PANEL , STAND JOON chol/HDLC ratio 3.1 (calc ) <5.0 normal Not Available [facility] [address] [address] [place], [address], 02/20/2024 18:11:26 01/10/20 24 02/20/2024 LIPID PANEL , STAND JOON non HDL cholesterol 99 mg/dL _(honorio c) <130 normal For patie nts with diabe carol ann plus 1 major ASCVD risk facto r, treat ing to a non-H DL-C goal of <100 mg/dL (LDL- C of <70 mg/dL ) is consi dered a thera pedemetrisi c optio n. Not Available [address] [address] [place], [address], 02/20/2024 18:11:26 01/10/20 24 02/20/2024 TSH+F REE T4 TSH 1.56 mIU/L 0.40-4 .50 normal Not Available [address] [address] [place], [address], 02/20/2024 18:11:28 01/10/20 24 02/20/2024 TSH+F REE T4 T4, free 1.3 NG/dL 0.8-1. 8 normal Not Available [address], [address], 02/20/2024 18:11:28 01/10/20 24 02/20/2024 COMPR EHENS ROSANNE METAB OLIC PANEL glucose 88 mg/dL 65-99 normal Fasti ng refer ence inter anna Not Available [address], [address], 02/20/2024 18:11:28 01/10/20 24 02/20/2024 COMPR EHENS ROSANNE METAB OLIC PANEL urea nitrogen (BUN) 13 mg/dL 7-25 normal Not Available [address], [address], 02/20/2024 18:11:28 01/10/20 24 02/20/2024 COMPR EHENS ROSANNE METAB OLIC PANEL creatinine 0.81 mg/dL 0.50-1 .05 normal Not Available [address], [address], 02/20/2024 18:11:28 01/10/20 24 02/20/2024 COMPR EHENS ROSANNE METAB OLIC PANEL eGFR 82 mL/mi n/1.7 3m2 > or = 60 normal Not Available [address], [address], 02/20/2024 18:11:28 01/10/20 24 02/20/2024 COMPR EHENS ROSANNE METAB OLIC PANEL BUN/creatini ne ratio SEE NOTE: (calc ) 6-22 Not Repor charity: BUN and Creat inine are withi n refer ence range . Not Available [address], [address], 02/20/2024 18:11:28 01/10/20 24 02/20/2024 COMPR EHENS ROSANNE METAB OLIC PANEL sodium 136 mmol/ L 135-14 6 normal Not Available [address], [address], 02/20/2024 18:11:28 01/10/20 24 02/20/2024 COMPR EHENS ROSANNE METAB OLIC PANEL potassium 4.3 mmol/ L 3.5-5. 3 normal Not Available [address] [address] [place], [address], 02/20/2024 18:11:28 01/10/20 24 02/20/2024 COMPR EHENS ROSANNE METAB OLIC PANEL chloride 97 mmol/ L 98-110 low Not Available [address], [address], 02/20/2024 18:11:28 01/10/20 24 02/20/2024 COMPR EHENS ROSANNE METAB OLIC PANEL carbon dioxide 29 mmol/ L 20-32 normal Not Available [address], [address], 02/20/2024 18:11:28 01/10/20 24 02/20/2024 COMPR EHENS ROSANNE METAB OLIC PANEL calcium 9.4 mg/dL 8.6-10 .4 normal Not Available [address] [address] [place], [address], 02/20/2024 18:11:28 01/10/20 24 02/20/2024 COMPR EHENS ROSANNE METAB OLIC PANEL protein, total 6.5 g/dL 6.1-8. 1 normal Not Available [address], [address], 02/20/2024 18:11:28 01/10/20 24 02/20/2024 COMPR EHENS ROSANNE METAB OLIC PANEL albumin 4.1 g/dL 3.6-5. 1 normal Not Available [address], [address], 02/20/2024 18:11:28 01/10/20 24 02/20/2024 COMPR EHENS ROSANNE METAB OLIC PANEL globulin 2.4 g/dL_ (calc ) 1.9-3. 7 normal Not Available [address], [address], 02/20/2024 18:11:28 01/10/20 24 02/20/2024 COMPR EHENS ROSANNE METAB OLIC PANEL albumin/glob ulin ratio 1.7 (calc ) 1.0-2. 5 normal Not Available [address], [address], 02/20/2024 18:11:28 01/10/20 24 02/20/2024 COMPR EHENS ROSANNE METAB OLIC PANEL bilirubin, total 0.3 mg/dL 0.2-1. 2 normal Not Available [address], [address], 02/20/2024 18:11:28 01/10/20 24 02/20/2024 COMPR EHENS ROSANNE METAB OLIC PANEL alkaline phosphatase 71 U/L 37-153 normal Not Available [address], [address], 02/20/2024 18:11:28 01/10/20 24 02/20/2024 COMPR EHENS ROSANNE METAB OLIC PANEL AST 15 U/L 10-35 normal Not Available [address] [address] [place], [address], 02/20/2024 18:11:28 01/10/20 24 02/20/2024 COMPR EHENS ROSANNE METAB OLIC PANEL ALT 13 U/L 6-29 normal Not Available [address] [address] [place], [address], 02/20/2024 18:11:28 01/10/20 24 02/20/2024 TSH W/REF YUE TO FT4 TSH w/reflex to FT4 1.56 mIU/L 0.40-4 .50 normal Not Available [address] [address] [place], [address], 02/20/2024 18:11:29 01/10/20 24 02/20/2024 DRUG MONIT OR, PANEL 5, W/CON F, URINE amphetamines TNP TEST NOT PERFO RMED No suita ble speci men recei gallo. Pleas e revie w the test requi remen ts at testd irect ory.q uestd [employer] .com Not Available [address] [address] [place], [address], 02/20/2024 18:11:30 01/10/20 24 02/20/2024 DRUG MONIT OR, PANEL 5, W/CON F, URINE barbiturates TNP TEST NOT PERFO RMED No suita ble speci men recei gallo. Pleas e revie w the test requi remen ts at testd irect ory.q uestd [employer] .com Not Available [address] [address] [place], [address], 02/20/2024 18:11:30 01/10/20 24 02/20/2024 DRUG MONIT OR, PANEL 5, W/CON F, URINE benzodiazepi jani TNP TEST NOT PERFO RMED No suita ble speci men recei gallo. Pleas e revie w the test requi remen ts at testd [facility] or.q [employer] Not Available [facility] [address] [place], [address], 02/20/2024 18:11:30 01/10/20 24 02/20/2024 DRUG MONIT OR, PANEL 5, W/CON F, URINE cocaine metabolite TNP TEST NOT PERFO RMED No suita ble speci men recei gallo. Pleas e revie w the test requi remen ts at testd [facility] or[facility] [employer] .com Not Available [place] [address] [place], [address], 02/20/2024 18:11:30 01/10/20 24 02/20/2024 DRUG MONIT OR, PANEL 5, W/CON F, URINE marijuana metabolite TNP TEST NOT PERFO RMED No suita ble speci men recei gallo. Pleas e revie w the test requi remen ts at [facility] or[facility] [employer] .com Not Available [place] [address] [place], [address], 02/20/2024 18:11:30 01/10/20 24 02/20/2024 DRUG MONIT OR, PANEL 5, W/CON F, URINE methadone metabolite TNP TEST NOT PERFO RMED No suita ble speci men recei gallo. Pleas e revie w the test requi remen ts at [facility] [employer] .com Not Available [employer] [facility] [address] [place], [address], 02/20/2024 18:11:30 01/10/20 24 02/20/2024 DRUG MONIT OR, PANEL 5, W/CON F, URINE opiates TNP TEST NOT PERFO RMED No suita ble speci men recei gallo. Pleas e revie w the test requi remen ts at [facility] ory[employer] [employer] Technologies Not Available [employer] [facility] [address] [place], [address], 02/20/2024 18:11:30 01/10/2002/20/2024 DRUG MONIT OR, PANEL 5, W/CON F, URINE oxycodone TNP TEST NOT PERFO RMED No suita ble speci men recei gallo. Pleas e revie w the test requi remen ts at testd irect ory.q uestd [employer] Not Available [employer] [facility] [address], [place], [address], 02/20/2024 18:11:30 01/10/20 24 02/20/2024 DRUG MONIT OR, PANEL 5, W/CON F, URINE creatinine TNP TEST NOT PERFO RMED No suita ble speci men recei gallo. Pleas e revie w the test requi remen ts at testd irect ory.q uestd [employer] Not Available [employer] [facility] [address] [place], [address], 02/20/2024 18:11:30 01/10/2002/20/2024 DRUG MONIT ORING TEMPL ATE notes and [...] ders needi ng Inter preta tion [place] israel das ct us at 1.877 .40.R XTOX (1.87 7.407 .9869 ) M-F, 8am to 10pm EST Not Available [employer] [facility] [address] [place], [address], 02/20/2024 18:11:31 01/11/20 24 01/13/2024 DRUG MONIT OR, PANEL 5, W/CON F, URINE amphetamines NEGATI VE NG/mL <500 Not Available [place] [address] [place], [address], 01/13/2024 22:45:13 01/11/20 24 01/13/2024 DRUG MONIT OR, PANEL 5, W/CON F, URINE barbiturates NEGATI VE NG/mL <300 Not Available [place] [address] [place], [address], 01/13/2024 22:45:13 01/11/20 24 01/13/2024 DRUG MONIT OR, PANEL 5, W/CON F, URINE benzodiazepi jani NEGATI VE NG/mL <100 Not Available [address], [address], 01/13/2024 22:45:13 01/11/20 24 01/13/2024 DRUG MONIT OR, PANEL 5, W/CON F, URINE cocaine metabolite NEGATI VE NG/mL <150 Not Available [address], [address], 01/13/2024 22:45:13 01/11/20 24 01/13/2024 DRUG MONIT OR, PANEL 5, W/CON F, URINE marijuana metabolite NEGATI VE NG/mL <20 Not Available [address] [place] [address] [place], [address], 01/13/2024 22:45:13 01/11/20 24 01/13/2024 DRUG MONIT OR, PANEL 5, W/CON F, URINE methadone metabolite NEGATI VE NG/mL <100 Not Available [address], [address], 01/13/2024 22:45:13 01/11/20 24 01/13/2024 DRUG MONIT OR, PANEL 5, W/CON F, URINE opiates NEGATI VE NG/mL <100 Not Available [address] [place], [address], 01/13/2024 22:45:13 01/11/20 24 01/13/2024 DRUG MONIT OR, PANEL 5, W/CON F, URINE oxycodone NEGATI VE NG/mL <100 Not Available [address] [place] [address] [place], [address], 01/13/2024 22:45:13 01/11/20 24 01/13/2024 DRUG MONIT OR, PANEL 5, W/CON F, URINE creatinine 67.0 mg/dL > or = 20.0 Not Available [place] [address] [place], [address], 01/13/2024 22:45:13 01/11/20 24 01/13/2024 DRUG MONIT OR, PANEL 5, W/CON F, URINE pH 7.3 4.5-9. 0 Not Available [place] [address] [place], [address], 01/13/2024 22:45:13 01/11/20 24 01/13/2024 DRUG MONIT OR, PANEL 5, W/CON F, URINE oxidant NEGATI VE mcg/m L <200 Not Available [place] [address] [place], [address], 01/13/2024 22:45:13 01/11/20 24 01/13/2024 DRUG MONIT [...] M-F, 8am to 10pm EST Not Available [facility] [address], [place], [address], 01/13/2024 22:45:15 06/22/19 24 09/14/2022 DEXA No observ ation record ed. [email or web address] [facility] [address], [place], [address], 06/29/2023 10:42:34 03/02/19 25 03/01/2024 MRI, hip, w/o contr ast No observ ation record ed. [facility] [address], [place], [address], 03/02/2024 14:47:24 06/02/19 25 05/31/2024 pre opera tive order s* No observ ation record ed. [facility] [address], [place], [address], 06/03/2024 16:58:38 Result Notes None recorded. Problems Name Problem SNOMED Code Status Onset Date Resolution Date Notes Provider Name and Address Organization Details Recorded Time Pain of left hip joint 27101229786 9100 Completed 202004/25/2022 Kina Russo MD Attn: Lopez winter,[address] [facility], [place], [address], [place] [facility] 3 16:40:52 Spinal stenosis of lumbar region 31560683 Active 2020 Kina Russo MD Attn: Lopez winter,[address] [facility], [place], [address], [place] [facility] 3 15:48:38 Low back pain 928469994 Active 2020 Kina Russo MD Attn: Lopez winter,[address] [facility], [place], [address], [place] [facility] 3 15:48:38 Osteoart hritis of left hip joint 56056840061 9108 Completed 202004/25/2022 status post total hip arthropl asty, 2020 Kina Russo MD Attn: Geetashobha winter,[address] [facility], [place], [address], [place] [facility] 3 16:43:43 Smoker 21527212 Active 2020 Kina Russo MD Attn: Lopez g,[address] [facility], [place], [address], [place] [facility] 3 15:48:38 Long-ter m drug therapy Active 2022 Kina Russo MD Attn: Lopez winter,[address] [facility], [place], [address], [place] [facility] 3 18:29:24 Menopaus e present 264442315 Active 2022 Kina Russo MD Attn: Lopez winter,[address] [place], [address], [place] [facility] 3 15:48:37 Left side sciatica 32119028159 9104 Active 2022 Kina Russo MD Attn: Lopez winter,[address] [place], [address], [place] [facility] 3 15:48:37 Mixed anxiety and depressi ve disorder 103730676 Active 2022 Kina Russo MD Attn: Lopez winter,[address] [place], [address], [place] [facility] 3 15:48:37 Body mass index 30+ - obesity 824936984 Active 2022 Kina Russo MD Attn: Lopez winter,[address] [place], [address], [place] [facility] 3 15:58:07 Allergic rhinitis caused by pollen 61606566 Active 2014 Kina Russo MD Attn: Lopez winter,[address] [place], [address], [place] [facility] 3 16:44:23 Gastro-e sophagea l reflux disease with esophagi tis 801979516 Active 2015 Kina Russo MD Attn: Lopez winter,[address] [facility], [place], [address], [place] [facility] 3 16:46:03 Mucocele of mouth 224357774 Completed 202206/01/2024 CLAUDIA Qureshi Attn: Lopez winter,[address] [facility], [place], [address], [place] [facility] 5 09:35:29 Xerostom ia 29115369 Completed 202206/01/2024 CLAUDIA Qureshi Attn: Lopez winter,[address] [facility], [place], [address], [place] [facility] 5 09:35:31 Acute sinusiti s 82604519 Completed 202306/01/2024 CLAUDIA Qureshi Attn: Lopez winter,[address] [place] [address], [place], [address], [place] [facility] 5 09:35:26 Tobacco dependen ce syndrome 28620862 Completed 201406/11/2014 Location : None;Sev erity: Moderate ;Progres s: Stable;A dded By: Nguyễn Herbert;Ad d to Current Problems : YES Kina Russo MD Attn: Lopez winter,[address] [facility], [place], [address], [place] [facility] 4 16:03:29 Hyperlip idemia 46813140 Active 2012 Kina Russo MD Attn: Lopez winter,[address] [place] [address], [place], [address], [place] [facility] 3 16:48:02 Allergic rhinitis caused by pollen 51982931 Completed 201402/22/2015 Location : None;Sev erity: Moderate ;Progres s: Stable;A dded By: Dawn Johnson;Add to Current Problems : YES Kina Russo MD Attn: Lopez winter,[address] [facility], [place], [address], [facility] 3 16:44:23 Benign essentia l hyperten jonathon 4181582 Active 2012 Kina Russo MD Attn: Lopez winter,[address] [facility], [place], [address], [facility] 3 16:48:08 Gastro-e sophagea l reflux disease with esophagi tis 741436659 Completed 201501/05/2016 Location : None;Sev erity: Moderate ;Progres s: Stable;A dded By: Dawn Johnson;Add to Current Problems : NO Kina Russo MD Attn: Geetashobha winter,[address] [facility], [place], [address], [facility] 3 16:46:03 Generali zed anxiety disorder 30785155 Completed 201201/12/2019 Location : None;Sev erity: Moderate ;Progres s: Stable;A dded By: Dawn Johnson;Add to Current Problems : YES Dawn Johnson [facility], [facility] 9 15:58:50 Problem Notes None recorded. Procedures Surgical History Date Name Laterality Status Provider Name and Address Organization Details Recorded Time 1 total replacement of left hip joint completed Kina Russo MD Attn: Accounting,[address] [place], [address], [facility] 04/25/2022 15:50:39 9 Date of Last Pap Smear completed Ree Sanchez MA [facility] 06/29/2021 16:49:52 Imaging Results Imaging Date Name Status [facility] Details LastModified Time 09/14/2022 DEXA completed [address], [place], [address], 06/29/2023 10:42:34 03/01/2024 MRI, hip, w/o contrast completed [facility] [address], [place], [address], 03/02/2024 14:47:24 05/31/2024 pre operative orders* completed [facility] [address], [place], [address], 06/03/2024 16:58:38 Procedure Notes None recorded. Medical Equipment None Reported. Allergies Allergen ID Allergen Name Allergen Category Reaction Reaction Severity Criticality Documentation Date Start Date Code Code System Note Provider Name and Address Organization Details Recorded Time 98398 codeine sulfate medicatio n nausea moderate Not available 03/03/20162012 53073 RxNorm React ion: nause a;Sev erity : [...] for 10 days. 07/11 completed RxNor m: 15447 4;All ow Subst ituti on: True Not [...] by mouth daily 11/26 completed RxNor m: 11521 1;All ow Subst ituti on: True Not [...] Available Not Available No t Available aspirin 06/01 completed Not Available Not Available Not Available sodium chloride 1,000 mg soluble tablet Take 1 tablet every day by miscell. route in the morning for 30 days. 2024 active Not Available Not Available Not Avai lable Eliquis 2.5 mg tablet TAKE 1 TABLET [...] Updated DateTime 3 162.56 cm 33.6 kg/m2 72962.1 g 97.5 [degF] 97 /min 99 % 99 % 139 mm[Hg] 76 mm[Hg] Francisco J Del Cid MA [facility] 3 12:21:14 Date Recorded Body height Body mass index (BMI) Body weight Body temperature Oxygen saturation Oxygen saturation in Arterial blood by Pulse oximetry Heart rate Systolic blood pressure Diastolic blood pressure Provider Name and Address Organization Details Last Updated DateTime 4 162.56 cm 36 kg/m2 39031.4 g 97.5 [degF] 97 % 97 % 109 /min 123 mm[Hg] 80 mm[Hg] Bushra Lew MA [place] - [facility] 4 15:26:43 Date Recorded Body height Body mass index (BMI) Body weight Oxygen saturation Oxygen saturation in Arterial blood by Pulse oximetry Body temperature Heart rate Systolic blood pressure Diastolic blood pressure Provider Name and Address Organization Details Last Updated DateTime 4 162.56 cm 36.3 kg/m2 16822.3 9 g 95 % 95 % 97.8 [degF] 92 /min 138 mm[Hg] 82 mm[Hg] Flaquita Alcaraz MA [facility] 4 14:22:06 Date Recorded Body height Body mass index (BMI) Body weight Oxygen saturation Oxygen saturation in Arterial blood by Pulse oximetry Heart rate Body temperature Systolic blood pressure Diastolic blood pressure Provider Name and Address Organization Details Last Updated DateTime 5 162.56 cm 35.1 kg/m2 13361.6 4 g 96 % 96 % 108 /min 98 [degF] 134 mm[Hg] 83 mm[Hg] Flaquita Alcaraz MA [facility] 5 10:11:17 Date Recorded Body height Body mass index (BMI) Body weight Body temperature Oxygen saturation Oxygen saturation in Arterial blood by Pulse oximetry Heart rate Systolic blood pressure Diastolic blood pressure Provider Name and Address Organization Details Last Updated DateTime 5 162.56 cm 33.6 kg/m2 87791.1 g 97.5 [degF] 100 % 100 % 80 /min 117 mm[Hg] 84 mm[Hg] Francisco J Del Cid MA [facility] SI 11:49:43 Social History Question Answer Notes LastModified by Organizat ion Details LastModified Time Tobacco Smoking Status Former Smoker none in 27 days Francisco J Del Cid MA null, [facility] 06/01/2024 11:43:23 Do You Have An Advance Directive? No [...] Date Of Your Most Recent Tobacco Screening? 06/01/2024 [email or web address] Information not available 06/01/2024 What Is Your Relationship Status? Information not available 06/29/2021 Do You Use Your Seat Belt Or Car Seat Routinely? Yes Information not available 06/29/2021 Do You Have Smoke And Carbon Monoxide Detectors In Your Home? Yes Information not available 06/29/2021 Are You Passively Exposed To Smoke? Yes Information not available 06/29/2021 How Much Tobacco Do You Smoke? 0.25 PPD apricema Information not available 01/10/2024 Do You Feel Stressed (tense, Restless, Nervous, Or Anxious, Or Unable To Sleep At Night)? [id number] Information not available 06/29/2021 Do You Use [...] available 2016 13:03:23 Medical History Condition Response Anxiety Disorder Y Acid Reflux (GERD) Y High Blood Pressure Y Gynecological History Statement/Question Response Date of Last Pap Smear 07/27/2018 Obstetrics History GPAL:G 0 P 0 0 0 0 Immunizations Vaccine Type Date Status Note Provider Nam e and Address Organization Details Recorded Time COVID-19 vaccine, vector-nr, rS-Ad26, PF, 0.5 mL 1 completed AGUSTIN Qureshi-C Attn: [address] [place], [place], [address] [place] [address], [place] [facility] 01/09/2024 21:27:02 COVID-19, mRNA, LNP-S, PF, 30 mcg/0.3 mL dose 1 completed CLAUDIA Qureshi Attn: Accounting[address] [place], [place], [address] [place] [address], [place] [facility] 01/09/2024 21:27:02 COVID-19, mRNA, LNP-S, bivalent, PF, 30 mcg/0.3 mL dose 2 completed AGUSTIN Qureshi-C Attn: Accounting[address] [place], [address] [place] [address], [place] [facility] 01/09/2024 21:27:02 Influenza, split virus, quadrivalent, preservative 8 completed Not Available [facility] 03/17/2019 02:49:49 Tdap 5 completed Not Available [facility] 03/31/2019 02:11:37 Influenza, split virus, quadrivalent, preservative 5 completed Not Available [facility] 03/31/2019 02:11:37 Td (adult), 2 Lf tetanus toxoid, preservative free, adsorbed 6 completed CLAUDIA Qureshi Attn: Accounting[address] [facility], [place], [address], [facility] 01/09/2024 21:27:02 DT (pediatric) 5 completed Not Available [facility] 03/03/2016 05:18:15 MMR 1 completed Not Available [facility] 03/03/2016 05:18:15 OPV 3 completed Not Available [facility] 03/03/2016 05:18:16 Influenza, split virus, trivalent, PF 4 completed Flaquita Alcaraz [place] null, [place] [facility] 01/10/2024 15:02:54 Past Encounters Encounter ID Performer Location Encounter Start Date Encounter Closed Date Diagnosis/Indication Diagnosis SNOMED-CT Code Diagnosis ICD10 Code Diagnosis Note [id number] Coty Huynh MA [facility] [address] [place] [address] 08/19/2016 11:46:08 08/19/2016 15:33:07 Acute maxillary sinusitis 23033241 J01.00 Low back pain 816689300 M54.5 Chest wall pain 46750154 6 R07.89 Mixed hyperlipidemia 267 950612 E78.2 Cigarette smoker 3614455 7 F17.197 [id number] Dawn Johnson [facility] [address] [place] [address] 01/25/2017 14:07:34 01/25/2017 17:09:44 Benign essential hypertension 3445991 I10 Generalize d anxiety disorder 21906427 F41.1 Low back pain 565140472 M54.5 Allergic r hinitis caused by pollen 34325185 J30.1 [id number] [facility] [address] [place] [address] 04/15/2017 12:30:40 04/15/2017 15:58:58 Acute maxillary sinusitis 62402782 J01.00 [id number] Reva ambrocio [place] [id number] [place] [address] 08/17/2017 15:11:08 08/18/2017 10:39:45 Dysuria 77284208 R30.0 Essential hypertension 56888889 I10 Generalize d anxiety disorder 34444695 F41.1 Gastroesop hageal reflux disease without esophagitis 137157380 K21.9 Change in skin lesion 39 2197889 L98.9 Low back pain 128416582 M54.5 [id number] [place] [address] [place] [address] 12/14/2017 12:47:21 12/16/2017 13:59:05 Seasonal allergic rhinitis 511718862 J30.2 Administra tion of influenza vaccine 56173666 Z23 Colon canc er screening declined 6023908611 9109 Z53.20 will discuss at next visit [id number] CLAUDIA Pringle [place] [address] [place] [address] 06/21/2018 14:56:33 06/21/2018 17:08:40 Lumbago with sciatica 041593656 M54.42 Trochanter ic bursitis of left hip 4332883378 05138 M70.62 [id number] [place] [address] [place] [address] 07/27/2018 16:03:23 07/28/2018 08:42:23 Lumbago with sciatica 499028758 M54.42 Gynecologi c examination 69193517 Z01.419 Essential hypertension 31216515 I10 Mixed anxi ety and depressive disorder 945674929 F41.8 Gastroesop hageal reflux disease without esophagitis 454970515 K21.9 Allergic r hinitis caused by pollen 51872011 J30.1 [id number] [facility] [address] [place] [address] 01/12/2019 15:18:00 01/15/2019 09:10:59 Seasonal allergic rhinitis 925782151 J30.2 Mixed anxi ety and depressive disorder 391676168 F41.8 Intentiona l weight loss 613312541 R63.8 18 pounds in 6 mos [id number] [facility] [address] [place] [address] 01/22/2019 17:02:20 01/23/2019 09:16:35 Benign essential hypertension 9976339 I10 Hyperlipidemia 07636226 E78.5 Mixed anxi ety and depressive disorder 951474206 F41.8 cont same dose for now [id number] [facility] [address] [place] [address] 05/07/2019 16:21:27 05/08/2019 11:26:12 Mixed hyperlipidemia 320760049 E78.2 Mixed anxi ety and depressive disorder 043413993 F41.8 cont same dose for now Gastroesop hageal reflux disease without esophagitis 837566785 K21.9 Essential hypertension 33250665 I10 Benign ess ential hypertension 2723617 I10 Lumbago with sciatica 20 1049578 M54.42 Allergic r hinitis caused by pollen 43482437 J30.1 [id number] [facility] [address] [place] [address] 11/19/2019 14:57:45 11/19/2019 17:24:08 Unintentional weight gain 0247626095 46687 R63.5 25 pounds Lumbar spondylosis 42095 0009 M47.896 is seeing chiropract or for treatment Recurrent falls 24516103 2 R29.6 fell at work parking lot x 2 [id number] HERMELINDO Bailey [facility] [address] [place] [address] 12/17/2019 13:04:12 12/17/2019 17:00:17 Seasonal allergic rhinitis 691481659 J30.2 continue flonase and singulair regularly, watch for colored purulent drainage, SOB, cough, fever, etc. If any of those happen she is to stay home until well and recommend COVID testing. She swears this is just her horrible seasonal allergies [id number] Dawn Johnson [facility] [address] [place] [address] 05/07/2020 13:25:22 05/07/2020 16:05:26 Low back pain 819894557 M54.5 Arthritis of left hip 10 14502894 788182 M13.852 Benign ess ential hypertension 6688034 I10 [id number] CLAUDIA Pringle [facility] [address] [place] [address] 08/19/2020 15:26:41 08/20/2020 14:24:25 Essential hypertension 33748542 I10 at goal Pain of le ft hip joint 9571142873 29557 M25.552 scheduled for left hip arthoplast y Pre-surger y evaluation 407024090 Z01.818 cleared for surgery Hypokalemia 04355744 E87 .6 potassium 3.3 on scarlett and HCTZ. 10 meq of potassium added. will check BMP on Tuesday and then follow up with BMP 1-[address]Dr Johnson to consider decresing HCTZ as she is on 50mg an currently BP is under good control Smoker 31964135 F17.225 [id number] Dawn Johnson [facility] [address] [place] [address] 04/14/2021 09:34:38 04/14/2021 17:13:42 Dysuria 60067119 R30.0 no antibiotic indicated [id number] HERMELINDO Bailey [facility] [address] [place] [address] 05/13/2021 14:21:57 05/14/2021 10:29:30 Abdominal pain 51153502 R10.9 likely IBS type picture. Encouraged colonoscop y, she will do after . Will consider CT abd sooner if symptoms worsen or persist before the colonoscop y or if labs indicate the need. Anemia fol lowing acute postoperative blood loss 7550578549 2979915 D62 if remains, will get stool for FIIT before colonoscop y scheduled Stomach cramps 90064660 R10.9 food avoidance discussed like excess caffeine, grease, spice, acid, etc. [id number] [facility] [address] [place] [address] 06/29/2021 15:57:41 06/29/2021 17:55:44 Gynecologic examination 61396509 Z01.419 Screening for malignant neoplasm of colon 030175876 Z12.11 patient has a referral for colonoscop y already with Dr. Connell and promised to do Cigarette smoker 9165179 7 F17.804 [id number] [place] [address] [place] [address] 10/19/2021 15:29:16 10/19/2021 17:24:21 History of abnormal cervical Papanicolaou smear 311341440 Z87.42 Hyperlipidemia 21972192 E78.5 Benign ess ential hypertension 3087260 I10 Allergic rhinitis 587223 04 J30.9 [id number] [place] [address] [place] [address] 11/16/2021 11:43:14 11/16/2021 18:03:13 Low back pain 668052983 M54.50 if patient calls back -- refer for CT abd/pelvis to r/o problems Left side sciatica 26978 92523 22353 M54.32 Body mass index 30+ - obesity 080858691 Z68.31 Smoker 24735928 F17.174 [id number] Kina Russo MD [facility] [address] [place] [address] 04/21/2022 16:27:33 04/26/2022 10:38:02 Benign essential hypertension 1182977 I10 # HTN- {{Controll ed* Nearly controlled Suboptima lly controlled Uncontrol led}}- Continue current medication s. No change in management - Encouraged routine blood pressure checksat home, targetless than 140/90- DiscussedD MILI diet(https ://www.nhl bi.nih.gov /files/doc s/public/h eart/dash_ brief.pdf) anddietary sodium restrictio ns- Continue/I ncrease dietary efforts and physical activity Hyperlipidemia 70852645 E78.5 # Hyperlipid emia- Last lipid panel {{< >*}} 1 year ago- ACC/AHA CV risk {{< >*}} 7.5%- Repeat {{today at earliest convenienc e* prior to next visit in one year}}- Continue with current management without changes.- Focus on a dietlow in saturated fats(https ://www.[facility] bodaplanesth.or g/educatio n/guidelin es-for-a-l ow-cholest dayo-low-s aturated-f at-diet),b lood pressure control,sm oking cessation( http://ezequiel tyes.org/) anddaily exerciseto reduce your risk ofheart disease and stroke. Left side sciatica 72380 [address]648 23329 M54.32 - ongoing symptoms, severe, debilitati ng- previously seen by orthopedic back surgeon, now out of area- reviewed options: pain management , with possible injections , neurosurge ry/orthope dic back surgery- trial of skeletal muscle relaxant for symptom-re lief, along with ongoing meloxicam Mixed anxi ety and depressive disorder 250568036 F41.8 # Anxiety / Depression Increased with recent issues/fam ayaan stressorsC ontinue meds - patient advised we can adjust/inc rease medication s if necessary Long-term drug therapy 664344108 Z79.899 Checking routine labwork for ongoing long-term medication use. Screening mammography of bilateral breasts 9953992722 23028 Z12.31 Menopause present 976834 006 N95.1 Z13.820 Screening for malignant neoplasm of colon 237462723 Z12.11 Body mass index 30+ - obesity 470559736 Z68.33 Focus on a healthy diet, avoid added salt, and opnbdr8464 calories or less daily. Exercise as tolerated, targeting3 0-60 minutes of exercise daily, at least 5 days per week Smoker 27631553 F17.200 precontemp lative - readdress at follow-up Allergic r hinitis caused by pollen 36057257 J30.1 # Allergic rhinitisMo derate persistent symptoms.C ontinue with intranasal corticoste roid, oral antihistam ine, and allergen avoidance. Continue leukotrien e inhibitor. Gastro-eso phageal reflux disease with esophagitis 568823948 K21.00 # GERD {{Continue current treatment with termite control technician proton pump inhibitor, low-dose* Continue current treatment with termite control technician proton pump inhibitor, high-dose Continue current treatment with alf H2 molina Em piric low-dose proton pump inhibitor treatment x 12 weeks and re-evaluat e}} No suspected reflux complicati ons (Rascon/s tricture) Lifestyle modificati on: weight loss, avoid meals 2-3 hours before bedtime Consider limiting or eliminatin g food triggers:c hocolate, caffeine, citrus fruits/jui francis, alcohol, acid/spicy food.Smoki ng cessation if indicatedY early vitamin B12 and folic acid levels for alf proton pump inhibitor use [id number] Kina Russo MD [facility] [address] [place] [address] 11/22/2022 11:57:02 11/22/2022 17:35:27 Benign essential hypertension [id number] I10 # HTN- {{Controll ed* Nearly controlled Suboptima lly controlled Uncontrol led}}- Continue current medication s. No change in management - Encouraged routine blood pressure checksat home, targetless than 140/90- DiscussedD MILI diet(https ://www.nhl bi.nih.gov /files/doc s/public/h eart/dash_ brief.pdf) anddietary sodium restrictio ns- Continue/I ncrease dietary efforts and physical activity Hyperlipidemia 38961708 E78.5 # Hyperlipid emia- Last lipid panel {{<* >}} 1 year ago- ACC/AHA CV risk {{< >*}} 7.5%- Repeat {{today at earliest convenienc e prior to next visit* in one year}}- Continue with current management without changes.- Focus on a dietlow in saturated fats(https ://www.[facility] fhealth.or g/educatio n/guidelin es-for-a-l ow-cholest dayo-low-s aturated-f at-diet),b lood pressure control,sm oking cessation( http://ezequiel tyes.org/) anddaily exerciseto reduce your risk ofheart disease and stroke. Left side sciatica 49820 38418 14280 M54.32 - following with neurosurge ry, interventi onal pain management - cyclobenza mary - increase dosing it tolerates- await injection therapy Mixed anxi ety and depressive disorder [id number] F41.8 # Anxiety / Depression Increased with recent issues/fam ayaan stressorsC ontinue meds - patient advised we can adjust/inc rease medication s if necessary Gastro-eso phageal reflux disease with esophagitis 132664774 K21.00 # GERD{{Cont inue current treatment with termite control technician proton pump inhibitor, low-dose* Continue current treatment with alf proton pump inhibitor, high-dose Continue current treatment with termite control technician H2 molina Em piric low-dose proton pump inhibitor treatment x 12 weeks and re-evaluat e}}No suspected reflux complicati ons (Rascon/s tricture)L ifestyle modificati on: weight loss, avoid 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 Continue leukotrien e inhibitor. Smoker 45547341 F17.200 precontemp lative - readdress at follow-up Body mass index 30+ - obesity 550958933 Z68.33 Focus on a healthy diet, avoid added salt, and [id number] calories or less daily. Exercise as tolerated, targeting3 0-60 minutes of exercise daily, at least 5 days per week Long-term drug therapy 232256277 Z79.899 Checking routine labwork for ongoing long-term medication use. Mucocele of mouth 358353 008 K13.79 - consultati on with otolaryngo logy Xerostomia 55543382 R68. 2 - encouraged smoking cessation, increased gum chewing, hard candies- try biotene or similar [id number] Kina Russo MD [facility] [address] [place] [address] 06/21/2023 14:59:23 06/22/2023 09:44:23 Hyperlipidemia 95668064 E78.5 # Hyperlipid emia Last lipid panel ~ 1 year ago ACC/AHA CV risk {{< >*}} 7.5% (8.8%) Repeat {{today at earliest convenienc e* prior to next visit in one year}} Continue with current management without changes. Focus on a dietlow in saturated fats(https ://www.[facility] Yodo1.or g/educatio n/guidelin es-for-a-l ow-cholest dayo-low-s aturated-f at-diet),b lood pressure control,sm oking cessation( http://ezequiel tyes.org/) anddaily exerciseto reduce your risk ofheart disease and stroke. Benign ess ential hypertension 1363499 I10 # HTN {{Controll ed* Nearly controlled Suboptima lly controlled Uncontrol led}} Continue current medication s. No change in management Encouraged routine blood pressure checksat home, targetless than 140/90 DiscussedD MILI diet(https ://www.nhl bi.nih.gov /files/doc s/public/h eart/dash_ brief.pdf) anddietary sodium restrictio ns Continue/I ncrease dietary efforts and physical activity Left side sciatica 33696 49872 44447 M54.32 following with neurosurge ry, interventi onal pain management cyclobenza mary - primary use at bedtime with acetaminop hen for improved sleepinter ventional pain management injection therapy w/ some relief Mixed anxi ety and depressive disorder 400563309 F41.8 # Anxiety{{/ Depression * /Panic attacks [...] - Recommende d Cognitive Behavioral Therapy (https://w CDP.psychol ogytoday.c /us/ther apy-types/ cognitive- behavioral -therapy) - Encouraged relaxation techniques (https://w CDP.[facility]/[employer]/cdr o/learning -- Communitie s/wellness /stress/st ress_hando uts/) - Stress management resources (https://w CDP.[facility]/[employer]/cdr o/learning -- Communitie s/wellness /stress/st ress_resou rces/) - Self-care handouts (https://yanyc mann.[facility].e du/self-ca re-handout s/) - Recommende d mindfulnes s meditation and exercise. - Sleep hygiene (https://o omcenter .[facility].edu/s leep-hygie ne/) Gastro-eso phageal reflux disease with esophagitis 862818121 K21.00 # GERDPatien t with breakthrou gh symptoms despite hi dosing of PPI. 30 day trial of double-dos ed high-dose proton pump inhibitorN o suspected reflux complicati ons (Rascon/s tricture)L ifestyle modificati on: weight loss, avoid meals 2-3 hours before bedtimeCon projector booth operator limiting or eliminatin g food triggers:c hocolate, caffeine, citrus fruits/jui francis, alcohol, acid/spicy food.Smoki ng cessation if indicatedY early vitamin B12 and folic acid levels for alf proton pump inhibitor use Allergic r hinitis caused by pollen 81595566 J30.1 # Allergic rhinitisMo derate persistent symptoms.C ontinue with intranasal corticoste roid, oral antihistam ine, and allergen avoidance. Continue leukotrien e inhibitor. Smoker 32401421 F17.200 reports cutting down to 5 cigs/day - readdress at follow-up Body mass index 30+ - obesity 819126694 Z68.33 Focus on a healthy diet, avoid added salt, and [id number] calories or less daily. Exercise as tolerated, targeting3 0-60 minutes of exercise daily, at least 5 days per week Long-term drug therapy 744337578 Z79.899 Checking routine labwork for ongoing long-term medication use. Acute sinusitis 78789100 J01.90 # Sinusitis, acute, bacterialS tarted amox/clav. oral corticoste roidsDecon gestants, intranasal corticoste roid and saline.Con tinue supportive therapy. [id number] Montserrat Woo, COST REPORT CLERK-C [facility] [address] [place] [address] 01/10/2024 14:00:30 01/13/2024 15:40:18 Benign essential hypertension 0362267 I10 -Controlle d on current therapy. -Goals: [...] months Mixed anxi ety and depressive disorder 512077364 F41.8 -pt PHQ elevated because of her pain and she has been out of her pregabalin for 1 week. She feel much better when she is taking it. She likes her current anxiety/de pression medication regimen and would like to continue. Hyperlipidemia 05902179 E78.5 -Will repeat lipid panel today, increased atorvastat in at last visit 6 months ago.-Will adjust if needed Gastroesop hageal reflux disease without esophagitis 260989536 K21.9 -Recommend lifestyle modificati ons:-Daggett te the head of the bed to reduce nocturnal reflux-Fabien id large meals, spicy or acidic foods, caffeine, alcohol, and tobacco-En courage weight loss if applicable -Suggest eating smaller, more frequent meals-Prov esha education on GERD, including triggers, lifestyle modificati ons, and the chronic nature of the condition. Smoker 03290337 F17.200 -Discussed with pt to quit smoking, says she has cut back to 5/day. She will consider cessation after she gets her back pain under control. Obesity 715667968 E66.9 1. Restrict Caloric Intake: Instead of [...] 5. Increase Exertion within Daily Activities : [phone] Steps/day. Avoid Elevators, escalators at public places. Increase steps in parking lots!. Screening for malignant neoplasm of colon 005275943 Z12.11 -Pt did not complete previous cologuard. Agreed to have another one sent to home to complete. Chronic back pain 874759 002 G89.29 -Pt was seeing pain management who was refilling medication but they discharged her back to ortho.-Edwin montes prescribe pregabalin until pt gets in to see ortho.-rel ieves pain from 12/07 to 04/09.-cont ract signs and UDS given. Administra tion of influenza vaccine 90599932 Z23 [id number] Montserrat Woo, COST REPORT CLERK-C [facility] [address] [place] [address] 04/26/2024 09:57:51 04/27/2024 11:21:35 Benign essential hypertension 7651284 I10 -Controlle d on current therapy.-G oals: [...] surgery.-f /u 6 months Left side sciatica 73384 81900 62349 M54.32 -only takes in PM at bedtime. Chronic back pain 745750 002 G89.29 -UDS given at last appt, clear-take s in AM and PM; hopefully with surgery will not need it after her recovery is over. Ortho aware of pregabalin and flexeril per consult note. Pain in ri ght hip joint [id number] 71611 M25.551 having right hip replaced on June 19 with [facility]-will back pre-op appt when she leaves today Hyperlipidemia 65523330 E78.5 -repeating lipid panel today, pt was not fasting with lipid panel at her last visit. [id number] Montserrat Woo, COST REPORT CLERK-C [facility] [address] [facility] [address] [place] [address] 06/01/2024 11:30:42 06/04/2024 10:29:21 Pre-surgery evaluation [id number] Z01.818 -requestin g labs and EKG from [facility]. Once back I will look over and sign pre-op paperwork if all clear. Health Concerns Section Related Observation LastModified by Organization Detai ls LastModified Time None Recorded Concern Status LastModified by Organization Details LastModified Time None Recorded Advance Directives Directive N: Payers Encounter Date Sequence Insurance Name Policy Number Policy Lane Covered Member ID Lane Member ID Guarantor Name 11/22/2022 1 [employer] ([employer]) [id number] Onur Stewart [id number] Laxmi Peña Stewart 06/21/2023 1 [employer] [address] Laxmi Peña Stewart [id number] Laxmi E Stewart 01/10/2024 1 [employer] [address] [employer] [address] [employer] Laxmi E Stewart [id number] Laxmi E Stewart 04/26/2024 1 [employer] [address] [employer] [address] [employer] Laxmi E Stewart [id number] 1 [id number] Laxmi E Stewart 06/01/2024 1 [employer] [address] [employer] [address] [employer] Laxmi Peña Stewart [id number] 1 [id number] Laxmi E Stewart Notes Date Note Type Note Provider Name [...] other chronic conditions Last routine Follow-up visit: 48Wdo76Vakv labwork: 5May23 Patient reports consistent use of [...] not complete cologuard- Well-woman exam: 10/19- Mammography: 71Wem63- DEXA: pending- LDCT: current smoker, < 30 [...] No complaint*}} of heartburn/regurgitation on {{no medication mcer-foy-fwcauqw antacids H2 molina proton pump inhibitor high-dose proton pump inhibitor*}}- {{Denies* Reports}} cough, shortness of breath, sore throat, changes of taste- {{+ No*}} dysphagia- {{+ No*}} chest pain Seasonal allergic rhinitisSymptoms controlled with montelukast, fluticasone nasal spray Nicotine dependence- precontemplative, has quit previously -Baggage And Mail Agent/Nursing note reviewed.- Kina Russo MD Attn: [address]ing[address] [place], [address], [facility] 11/22/2022 13:06:24 4 text/html HyperlipidemiaReported bypatient.Duration:chronic Current [...] other chronic conditions Last routine Follow-up visit: 12Vln97Vneu labwork: 66Lml36 Patient reports consistent use of medications, without side effects or intolerances. Current concerns:congestedears cloggedheadacheno sore throat1 week of symptoms- Using uxye-chc-tdjasrr meds with minimal relief. Health maintenance:Immunizations due: COVID booster, vzv, RSVColorectal cancer screening:did not complete cologuard - patient awareWell-woman exam: 10/19Mammography: 00Uwb27THQY:completed - not in our records - AndersonLDCT: [...] No complaint}} of heartburn/regurgitation on {{no medication yrht-jjo-xyupcrd antacids H2 molina proton pump inhibitor high-dose proton pump inhibitor*}} {{Denies* Reports}} cough, shortness of breath, sore throat, changes of taste {{+ No*}} dysphagia {{+ No*}} chest pain Seasonal allergic rhinitisSymptoms controlled with montelukast, fluticasone nasal spray Nicotine dependenceprecontemplative, has quit previously, currently at 5 cigs/day -Baggage And Mail Agent/Nursing note reviewed.- Kina Russo MD Attn: [address]ing[address] , [place], [address], [facility] 06/21/2023 19:41:34 4 text/html Anxiety/DepressionReported bypatient.Quality:symptoms same [...] she is walking. CLAUDIA Qureshi Attn: Accounting[address] [facility], [place], [address], [facility] 01/11/2024 10:24:19 5 text/html Back PainReported bypatient.Location:pain radiating to the buttocks;pain radiating to the legs Quality:sharp Severity:worsening;severe (8-10) Duration:chronic Context:prior back problems; used medications for back pain Alleviating Factors:laying down Aggravating Factors:standing, walking Associated Symptoms:no fever; no weak limbs; no numbness of the legs/feet; no tingling; no incontinence;shortness of breath(when she is in a lot of pain) CLAUDIA Qureshi Attn: Accounting[address] [facility], [place], [address], [facility] 04/26/2024 11:37:54 5 text/html Ashley is here today for pre-op evaluation. She is having a right hip replacement. She had her EKG and blood work done yesterday at [facility]. She has not had a cigarette in 30 days and has been on weight watchers diet to keep her weight under control. CLAUDIA Qureshi Attn: Accounting[address] [facility], [place], [address], [facility] 06/01/2024 12:31:26 OBGyn Episode No OBEpisode recorded.
--- OUTSIDE RECORDS SUMMARY | 2024-06-08 07:01 | XMS_ITS | Referral Summary ---
Author Organization [facility] Address [facility] [place] [address] Care Team Providers Care Crude Unit Operator Name Role Phone Jose Be MD Primary Care Provider + Allergies No known active allergies Medications lisinopriL (PRINIVIL,ZESTRIL ) 40 mg tablet Take 1 tablet (40 mg total) by mouth daily 05/07/19 20 Active buPROPion XL (WELLBUTRIN XL) 150 mg 24 hr tablet Take 1 tablet (150 mg total) by mouth daily 05/25/19 21 Active sertraline (ZOLOFT) 50 mg tablet Take 1 tablet (50 mg total) by mouth daily Active omeprazole (PriLOSEC) 40 mg capsule Take 1 capsule (40 mg total) by mouth daily 05/07/19 20 Active hydroCHLOROthiazi de (HYDRODIURIL) 25 mg tablet Take 1 tablet (25 mg total) by mouth daily Active montelukast (SINGULAIR) 10 mg tablet Take 1 tablet (10 mg total) by mouth daily Active fluticasone propionate (FLONASE) 50 mcg/actuation nasal spray Administer into each nostril daily Active calcium carbonate-vitamin D3 (Calcium 600 + D,3,) 1500 mg (600 mg elemental) -400 units per tablet 08/09/19 21 Active aspirin 81 mg enteric coated tablet Take 1 tablet (81 mg total) by mouth daily Active apple cider vinegar 600 mg capsule Take 1,200 mg by mouth daily Active cranberry 400 mg capsule Take 4,200 mg by mouth daily Active melatonin 10 mg tablet Take 1 tablet (10 mg total) by mouth nightly Active ascorbic xyjx-wxdybsxr-coh 1,000 mg powder effervescent in packet Take 1 packet by mouth daily Active cyclobenzaprine (FLEXERIL) 10 mg tabletIndications :Muscle Spasm Take 1 tablet (10 mg total) by mouth nightly Active acetaminophen-asp irin-caffeine (EXCEDRIN MIGRAINE) 250-250-65 mg per tablet Active traMADoL (ULTRAM) 50 mg tablet Take 1 tablet (50 mg total) by mouth every 8 (eight) hours as needed for pain 15 tablet 08/29/19 24 Active atorvastatin (LIPITOR) 20 mg tablet Take 1 tablet (20 mg total) by mouth daily 09/12/19 24 Active vitamin L-puoblzeptycl-qq neral (Emergen-C) 500 mg tablet,chewable Take by mouth 08/09/19 21 Active pregabalin (LYRICA) 50 mg capsuleIndication s:Lumbar radiculopathy TAKE 1 CAPSULE(50 MG) BY MOUTH TWICE DAILY 60 capsule 2 01/02/[address] (CYMBALTA) 30 mg capsule Take 1 capsule (30 mg total) by mouth daily 90 capsule 06/06/[address] (CYMBALTA) 30 mg capsule TAKE 1 CAPSULE(30 MG) BY MOUTH DAILY 30 capsule 6 10/25/19 24 025 Discontin ued(Reord er) Active Problems Problem Noted Date Diagnosed Date [...] likelihood of falling Lifestyle No Erika Anguiano, JUNIOR Note: Below are four things you [...] for improving home safety. Insurance [employer] Care Teams Crude Unit Operator Relationship Specialty Start Date End Date Jose Be MD PCP - General Internal Medicine 04/27/22
--- OUTSIDE RECORDS SUMMARY | 2024-06-08 07:01 | XMS_ITS | Clinical Summary ---
Author Organization [facility] Address [address] [place] [address] Care Team Providers Care Relay Repairer Name Role Phone Jose Be MD Primary [...] mg total) by mouth nightly Active ascorbic kjlh-lzokombt-joi 1,000 mg powder effervescent in packet Take [...] by mouth daily 09/12/19 24 Active vitamin W-fkjajnfwzsba-ih neral (Emergen-C) 500 mg tablet,chewable Take by [...] Vaccine (1 of 2) 2010 Covid-19 Vaccine ( - season) 2023 01/22/2022, 01/02/2021, 05/15/2020 Influenza Vaccine (Season Ended) 2024 12/15/19 18, 12/24/2014 DTaP/Tdap/Td Vaccine (4 - Td or Tdap) 12/24/2024 12/24/2014, 11/17/2005, 09/07/1974 Goals Goal Patient Goal Type Associated Problems Recent Progress Patient-Stated? Author CCM Chronic Pain Care Plan Chronic Care Management Improving( 8:51 AM CDT) Erika Powell, RN Note: Problem: Chronic Pain Goals: 1. Minimize further functional decline 2. Maximize quality of life 3. Control pain Strategies: - Activity/exercise program recommendation - Conservative stepwise pain medicine strategy with multi-disciplinary approach - Recommend healthy lifestyle strategies and compensatory methods as needed Reduce the likelihood of falling Lifestyle Erika Powell RN Note: Below are four things you [...] on stairs Contact your local community or [facility] for information on exercise, fall prevention programs, or options for improving home safety. Insurance CIGNA CIGNA Care Teams Relay Repairer Relationship Specialty Start Date End Date Jose Be MD PCP - General Internal Medicine 04/27/22
--- OUTSIDE RECORDS SUMMARY | 2024-06-08 07:01 | XMS_ITS | Clinical Summary ---
Author Organization [facility] Address [address] [place] [address] Care Team Providers Care Welding Machine Operator Thermit Name Role Phone Unavailable Primary Care Provider [...] 2010 COVID-19 Vaccine (2023-2 5 season) 2023 RSV Immunization or 60+ Years (1 [...]
--- OUTSIDE RECORDS SUMMARY | 2024-06-08 07:02 | XMS_ITS | CONTINUITY OF CARE DOCUMENT ---
Author Name juancarlos bauer Address Unknown Organization [facility] Address [address] [address] [place] [address] Phone [phone] Care Team Providers Care Shuttle Car Operator Name Role Phone Lazarus GARAY, Xuan Orellana Unavailable [phone] NAYELY GARAY, AIDEN Harris Unavailable EMETERIO GARAY, AXEL Cooper Unavailable PROBLEMS Condition Status Date Provider Notes Cardiovascular screening active Xuan gilbert MD HTN essential active Xuan Qiu MD Hypercholesterolemia active Xuan ambrocio MD Preop cardiovasc. examination active Neno Qiu MD Tobacco abuse active Xuan Qiu MD GERD active Xuan Qiu MD ENCOUNTERS Date Type Provider Location Encounter Diag nosis 1 - 5 In-person encounter Office Visit Xuan Qiu MD [facility] Cardiovascular screeningHTN essentialHypercholesterolemiaPreop cardiovasc. examinationTobacco abuseGERD [...] Crandall blood pressure, resting Yes Marcus busby [place] HISTORY OF MEDICATION USE Medication Status Instructions Dates Provider Indications Com ments CRANBERRY TABLET active take one tablet by mouth once daily Nika Raz EMERGEN-C IMMUNE ORAL PACKET active Nika Marby EQL FIBER THERAPY TABLET active take one tablet by mouth once daily Nika [place] CALCIUM + D3 TABLET active take one [...] MOUTH EVERY DAY IN THE EVENING Nika Raz #30, 30 days supply, Prescribed by AXEL STORM, Filled 07/17/2020 SOCIAL HISTORY Date Observation Value Provider number of grandchildren Xuan Qiu MD smoking/tobacco cess ation, patient education and counseling yes Xuan Qiu MD cigarette use yes Nika Crandall smoking status Former smoker Nika Crandall INSURANCE PROVIDERS Payer name Policy type / Coverage type [place] red republican ID [employer] BENEFITS Guest of a Guest insurance [employer] [id number] TREATMENT PLAN Date Name Performer Cardiology: H [...]
[2024-06-08 07:31] LABS: Anion Gap 7 mmol/L (4-12); Blood Urea Nitrogen 10 mg/dL (7-17); Calcium 9.1 mg/dL (8.4-10.2); Carbon Dioxide 30 mmol/L (22-30); Chloride 95 mmol/L (98-107); Estimated Glomerular Filt Rate > 60; Glucose 101 mg/dL (65-110); Potassium 3.8 mmol/L (3.4-5.0); Sodium 132 mmol/L (137-145)
--- NOTE | 2024-06-08 07:45 | ECG_ITS ---
Test Date: 2024-06-08 07:51:20 Measurements Intervals [place] Rate: 78 P: 27 RI: 195 QRS: 34 QRSD: 84 T: 53 QT: 390 QTc: 446 Interpretive Statements SINUS RHYTHM LOW QRS VOLTAGE IN PRECORDIAL LEADS BASELINE ARTIFACT- I, II, AVR, AVL, AVF BORDERLINE ECG Compared to ECG 05/31/2024 09:09:33 No significant changes Electronically Signed On 06-08-2024 08:22:21 CDT by Oliverio Ledbetter D.O.
== END 2024-06-08 06:53 | disposition home or self-care (01) ==
DX: Z01.818 Encounter for other preprocedural examination (principal); R94.31 Abnormal electrocardiogram [ECG] [EKG]; E87.1 Hypo-osmolality and hyponatremia
CPT/HCPCS: 36415; 80048; 93005

== ENCOUNTER 2024-06-14 07:57 | Outpatient (CLI) | payer OTHER, SELFPAY ==
--- NOTE | 2024-06-14 | EST_ITS ---
Patient Info Name: Laxmi Guerra Age: 63 years : 1960 Gender: Female Ht: 63 in Wt: 195 lbs BSA: 2.02 m2 Exam Date: 06/14/2024 9:34 AM Exam Location: Echo Lab Patient Status: Outpatient Admit Date: 06/14/2024 Staff Ordering Physician: GILA, RADHA Attending Provider: GILA, RADHA Exercise Technologist: Dede Ji RDCS Exercise Physician: Oliverio Ledbetter DO Exam Type: CA stress jena w NM Study Info A regadenoson stress test was performed. Summary 1. 1. Negative lexiscan stress test for ischemic ST changes by ECG criteria. 2. 2. Stable hemodynamics throughout the test. 3. 3. Nuclear scan to follow and will be reported separately. Please correlate with it. 4. 4. Patient informed of the above results. Protocol: Lexiscan Stress ECG Details Stage: REST Duration (min): 1 min : 59 sec HR (bpm): 81 SBP (mmHg): 128 DBP (mmHg): 82 Stage: REST Duration (min): 5 min : 26 sec HR (bpm): 81 SBP (mmHg): 128 DBP (mmHg): 82 Stage: STAGE 1 Duration (min): 1 min : 0 sec HR (bpm): 91 SBP (mmHg): 116 DBP (mmHg): 85 Stage: RECOVERY Duration (min): 1 min : 0 sec HR (bpm): 91 SBP (mmHg): 130 DBP (mmHg): 83 Stage: RECOVERY Duration (min): 2 min : 0 sec HR (bpm): 91 SBP (mmHg): 130 DBP (mmHg): 83 Stage: RECOVERY Duration (min): 3 min : 0 sec HR (bpm): 87 SBP (mmHg): 124 DBP (mmHg): 80 Stage: RECOVERY Duration (min): 3 min : 6 sec HR (bpm): 87 SBP (mmHg): 124 DBP (mmHg): 80 Rest HR: 81 bpm Peak HR: 93 bpm Rest Sys BP: 128 mmHg Peak Sys BP: 130 mmHg Max Pred HR: 157 bpm % Max Pred HR: 59 % Target HR: 133 bpm Max RPP: 12,090 bpm*mmHg Termination Reason: Completed protocol Cardiac Symptoms: Shortness of breath Total Time: 1 min : 0 sec Rest Schwartz BP: 82 mmHg Peak Schwartz BP: 83 mmHg Total Dose: 0.4 mg Resting ECG Sinus rhythm. Stress ECG No ST changes. Arrhythmias None. Report Signatures
--- NOTE | ~2024-06-14 | NM_ITS ---
EXAMINATION: NM jena stress w perfusion DATE: 06/14/2024 10:17 INDICATION: Encounter for other preprocedural examination TECHNIQUE: Rest images were obtained following intravenous administration of 10.8 mCi Tc99m tetrofosm in (Myoview). The patient was infused intravenously with Lexiscan (Regadenoson). Then, 32.4 mCi Tc99m tetrofosmin (Myoview) was administered intravenously, and stress images were obtained. Data was uzma nstructed into short axis and horizontal and vertical long axis SPECT images. Gated SPECT images were also obtained. COMPARISON: None. FINDINGS: There is no definite reversible or fixed perfusion abnormality to suggest ischemia or infar ction. There is normal left ventricular chamber size, wall motion and ejection fraction. Left ventr icular ejection fraction measures >70%. IMPRESSION: 1. Normal myocardial perfusion at rest and during stress. 2. Left ventricular ejection fraction measuring >70%. Reviewed, dictated and finalized at location A.
--- OUTSIDE RECORDS SUMMARY | 2024-06-14 08:06 | XMS_ITS | Data Portability ---
Author Organization MALIKA Pilar CABALLERO Address [address] [place] [address] Care Team Providers Care Senior Technical Architect Name Role Phone MONTSERRAT LUJAN Primary Care Provider Assessment Encounter Date Assessment Date Assessment LastModified by Organization Details LastModified Time 06/11/2024 06/11/2024 Preop evaluation , 63 old female who has hypertension, hyperlipidemia planning to have hip surgery. She has a also has a history of tobacco use I recommended her to have a Lexiscan Myoview to evaluate cardiovascular risk. Hypertension, blood pressure is well-controlled continue with hydrochlorothiazide 25 mg daily along with lisinopril 40 mg a day. Hyperlipidemia, LDL is at goal continue with atorvastatin 20 mg daily. I will make further recommendation after reviewing her stress test results. [email or web address] Not available 06/11/2024 10:02:39 Plan of Treatment Reminders Order Date Submit Date Provider Last Modified By Organization Details Last Modified Time Details Appointments ANY 15 2024 09:00A CLAUDIA Hanks Not available Not available Not available Lab lipid panel, serum 2024 025 [facility], [address], [place], [address], 04/27/2024 13:42:28 lipid panel, serum 2023 024 [facility], [address], [place], [address], 02/20/2024 18:11:27 TSH, serum or plasma 2023 024 [facility], [address], [place], [address], 02/20/2024 18:11:29 drug screen, urine 2023 [facility], [address], [place], [address], 01/13/2024 22:45:14 noninvasi ve colorecta l cancer DNA + occult blood screening , QL, stool 2023 [facility] (Cologuard Orders Only), [address], [address], [place], [address], 01/10/2024 14:54:02 CMP, serum or plasma 2023 [facility], [address], [place], [address], 02/20/2024 18:11:28 CMP, serum or plasma 2023 024 [facility], [address], [place], [address], 07/21/2023 16:24:10 CBC w/ auto diff 2023 024 [facility], [address], [place], [address], 07/21/2023 16:24:10 magnesium , serum or plasma 2023 024 [facility], [address], [place], [address], 07/21/2023 16:24:10 lipid panel, serum 2023 024 [facility], [address] , [place], [address], 07/21/2023 16:24:10 vitamin B12 + folate, serum or blood 2023 024 [facility], [address], [place], [address], 07/21/2023 16:24:10 Referral None recorded. Procedures lexiscan cardiolit e stress test (PROC) [address], [address] [place] [address] [address], [place], [address], 06/12/2024 08:57:17 Surgeries None recorded. Imaging None recorded. Medication Orders pregabali n 50 mg capsule 2024 025 [facility]46306, [address], [place], [place], [id number], 04/26/2024 10:39:31 cyclobenz aprine 10 mg tablet 2024 [facility] #73476, [address], [place], [place], [id number], 04/26/2024 11:37:19 hydrochlo rothiazid e 25 mg tablet 2024 025 [facility] #78798, [address] , [place], [place], [id number], 04/26/2024 10:39:28 bupropion HCl XL 150 mg 24 hr tablet, extended release 2023 024 [facility], [address], [place], [place], [id number], 01/10/2024 14:54:02 pregabali n 50 mg capsule 2023 024 [facility] #97345, [address] , [place], [place], [id number], 01/10/2024 14:54:02 omeprazol e 40 mg capsule,d elayed release 2023 [facility]89786, [address], [place], [place], [id number], 06/21/2023 16:39:02 amoxicill in 875 mg-potass ium clavulana te 125 mg tablet 2023 024 [facility] 39 [facility] #90615, [address], [place], [place], [id number], 08/16/2023 19:25:34 prednison e 20 mg tablet 2023 024 [facility] 39 [facility] #86893, [address], [place], [place], [id number], 08/16/2023 19:25:46 hydrochlo rothiazid e 25 mg tablet 2023 024 [facility] #20573, [address], [place], [place], [id number], 06/21/2023 19:43:12 atorvasta tin 10 mg tablet 2023 024 [facility] #68118, [address], [place], [place], [id number], 01/10/2024 14:08:30 Patient TargetsNo targets recorded. Patient Instructions Encounter Date Encounter Id Patient Instructions Last Modified By Organization Details Last Modified Time 06/21/2023 [id number] Acute Sinusitis: Care Instructions [email or web address] Not available 06/21/2023 16:38:51 learning about high blood pressure [email or web address] Not available 06/21/2023 16:38:51 high cholesterol: care instructions [email or web address] Not available 06/21/2023 16:38:51 learning about healthy weight [email or web address] Not available 06/21/2023 16:38:51 Ashley, - Thank [...] as needed. - Call with any concerns Immunization recommendations: - Preventive immunization against tetanus, [...] obtaining an RSV immunization. For more information: https://www.cdc. gov/vaccines/vpd /rsv/index.html Exercise recommendations: - It is recommended that [...] of green and leafy vegetables, including salads. [email or web address] Not available 06/21/2023 16:39:51 01/10/2024 [id number] Quitting Tobacco: Care Instructions [email or web address] Not available 01/10/2024 14:54:01 A healthy lifestyle: care instructions [email or web address] Not available 01/10/2024 14:54:02 06/11/2024 [id number] A healthy lifestyle: care instructions [email or web address] Not available 06/11/2024 09:46:56 Reason for Referral None Reported. Results Created Date Observation Date Name Description Value Unit Range Abnormal Flag Note LastModifiedBy Organization Detail LastModifiedTime 08/23/19 24 08/24/2023 LIPID PANEL , STAND JOON cholesterol, total 168 mg/dL <200 normal Not Available [address] [address] [place], [address], 08/24/2023 03:57:56 08/23/19 24 08/24/2023 LIPID PANEL , STAND JOON HDL cholesterol 43 mg/dL > or = 50 low Not Available [employer] [address], [address], 08/24/2023 03:57:56 08/23/19 24 08/24/2023 LIPID PANEL , STAND JOON triglyceride s 243 mg/dL <150 high If a non-f astin g speci men was colle cted, consi rosario repea t trigl yceri de testi ng on a fasti ng speci men if clini libby indic ated. Camilo pickett et al. J. of Clin. Lipid ol. 2015; 9:129 -169. Not Available [facility] [employer] [address], [address], 08/24/2023 03:57:56 08/23/19 24 08/24/2023 LIPID PANEL [...] n, which is a valid ated novel rylee stone than the Fried zhane equat ion in the estim ation of LDL-C . Norma fernandez SS et al. MARZENA. 2013; 310(1 9): 2061- 2068 (http ://ed ucati on.Qu estDi agnos tics. com/f aq/FA Q164) Not Available [employer] [address] [address] [place], [address], 08/24/2023 03:57:56 08/23/19 24 08/24/2023 LIPID PANEL , STAND JOON chol/HDLC ratio 3.9 (calc ) <5.0 normal Not Available [address], [address], 08/24/2023 03:57:56 08/23/19 24 08/24/2023 LIPID PANEL , STAND JOON non HDL cholesterol 125 mg/dL _(honorio c) <130 normal For patie nts with diabe carol ann plus 1 major ASCVD risk facto r, treat ing to a non-H DL-C goal of <100 mg/dL (LDL- C of <70 mg/dL ) is consi dered a thera peuti c optio n. Not Available [address], [address], 08/24/2023 03:57:56 08/23/19 24 08/24/2023 MAGNE SIUM magnesium 1.9 mg/dL 1.5-2. 5 normal Not Available [address], [address], 08/24/2023 03:57:56 08/23/19 24 08/24/2023 COMPR EHENS ROSANNE METAB OLIC PANEL glucose 109 mg/dL 65-99 high Fasti ng refer ence inter anna For someo ne witho ut known diabe carol ann, a gluco se value betwe en 100 and 125 mg/dL is consi stent with predi abete s and shoul d be confi rmed with a follo w-up test. Not Available [address], [address], 08/24/2023 03:57:57 08/23/19 24 08/24/2023 COMPR EHENS ROSANNE METAB OLIC PANEL urea nitrogen (BUN) 13 mg/dL 7-25 normal Not Available [facility] [address], [address], 08/24/2023 03:57:57 08/23/19 24 08/24/2023 COMPR EHENS ROSANNE METAB OLIC PANEL creatinine 0.89 mg/dL 0.50-1 .05 normal Not Available [address], [address], 08/24/2023 03:57:57 08/23/19 24 08/24/2023 COMPR EHENS ROSANNE METAB OLIC PANEL eGFR 73 mL/mi n/1.7 3m2 > or = 60 normal Not Available [address], [address], 08/24/2023 03:57:57 08/23/19 24 08/24/2023 COMPR EHENS ROSANNE METAB OLIC PANEL BUN/creatini ne ratio SEE NOTE: (calc ) 6-22 Not Repor charity: BUN and Creat inine are withi n refer ence range . Not Available [address], [address], 08/24/2023 03:57:57 08/23/19 24 08/24/2023 COMPR EHENS ROSANNE METAB OLIC PANEL sodium 136 mmol/ L 135-14 6 normal Not Available [address], [address], 08/24/2023 03:57:57 08/23/19 24 08/24/2023 COMPR EHENS ROSANNE METAB OLIC PANEL potassium 4.2 mmol/ L 3.5-5. 3 normal Not Available [address], [address], 08/24/2023 03:57:57 08/23/19 24 08/24/2023 COMPR EHENS ROSANNE METAB OLIC PANEL chloride 100 mmol/ L 98-110 normal Not Available [address], [address], 08/24/2023 03:57:57 08/23/19 24 08/24/2023 COMPR EHENS ROSNANE METAB OLIC PANEL carbon dioxide 29 mmol/ L 20-32 normal Not Available [address], [address], 08/24/2023 03:57:57 08/23/19 24 08/24/2023 COMPR EHENS ROSANNE METAB OLIC PANEL calcium 9.3 mg/dL 8.6-10 .4 normal Not Available [address], [address], 08/24/2023 03:57:57 08/23/19 24 08/24/2023 COMPR EHENS ROSANNE METAB OLIC PANEL protein, total 6.6 g/dL 6.1-8. 1 normal Not Available [address], [address], 08/24/2023 03:57:57 08/23/19 24 08/24/2023 COMPR EHENS ROSANNE METAB OLIC PANEL albumin 4.2 g/dL 3.6-5. 1 normal Not Available [address], [address], 08/24/2023 03:57:57 08/23/19 24 08/24/2023 COMPR EHENS ROSANNE METAB OLIC PANEL globulin 2.4 g/dL_ (calc ) 1.9-3. 7 normal Not Available [address], [address], 08/24/2023 03:57:57 08/23/19 24 08/24/2023 COMPR EHENS ROSANNE METAB OLIC PANEL albumin/glob ulin ratio 1.8 (calc ) 1.0-2. 5 normal Not Available [address], [address], 08/24/2023 03:57:57 08/23/19 24 08/24/2023 COMPR EHENS ROSANNE METAB OLIC PANEL bilirubin, total 0.4 mg/dL 0.2-1. 2 normal Not Available [address], [address], 08/24/2023 03:57:57 08/23/19 24 08/24/2023 COMPR EHENS ROSANNE METAB OLIC PANEL alkaline phosphatase 64 U/L 37-153 normal Not Available [facility] [employer] [address], [address], 08/24/2023 03:57:57 08/23/19 24 08/24/2023 COMPR EHENS ROSANNE METAB OLIC PANEL AST 15 U/L 10-35 normal Not Available [address], [address], 08/24/2023 03:57:57 08/23/19 24 08/24/2023 COMPR EHENS ROSANNE METAB OLIC PANEL ALT 14 U/L 6-29 normal Not Available [address], [address], 08/24/2023 03:57:57 08/23/19 24 08/24/2023 CBC (INCL UDES DIFF/ PLT) white blood cell count 6.0 thous and/u L 3.8-10 .8 normal Not Available [address], [address], 08/24/2023 03:57:57 08/23/19 24 08/24/2023 CBC (INCL UDES DIFF/ PLT) red blood cell count 4.08 james on/uL 3.80-5 .10 normal Not Available [address], [address], 08/24/2023 03:57:57 08/23/19 24 08/24/2023 CBC (INCL UDES DIFF/ PLT) hemoglobin 12.7 g/dL 11.7-1 5.5 normal Not Available [employer] [address], [address], 08/24/2023 03:57:57 08/23/19 24 08/24/2023 CBC (INCL UDES DIFF/ PLT) hematocrit 38.6 % 35.0-4 5.0 normal Not Available [address], [address], 08/24/2023 03:57:57 08/23/19 24 08/24/2023 CBC (INCL UDES DIFF/ PLT) MCV 94.6 fL 80.0-1 00.0 normal Not Available [address], [address], 08/24/2023 03:57:57 08/23/19 24 08/24/2023 CBC (INCL UDES DIFF/ PLT) MCH 31.1 pg 27.0-3 3.0 normal Not Available [address], [address], 08/24/2023 03:57:57 08/23/19 24 08/24/2023 CBC (INCL UDES DIFF/ PLT) MCHC 32.9 g/dL 32.0-3 6.0 normal Not Available [address], [address], 08/24/2023 03:57:57 08/23/19 24 08/24/2023 CBC (INCL UDES DIFF/ PLT) RDW 13.1 % 11.0-1 5.0 normal Not Available [address], [address], 08/24/2023 03:57:57 08/23/19 24 08/24/2023 CBC (INCL UDES DIFF/ PLT) platelet count 358 thous and/u L 140-40 0 normal Not Available [address], [address], 08/24/2023 03:57:57 08/23/19 24 08/24/2023 CBC (INCL UDES DIFF/ PLT) MPV 10.1 fL 7.5-12 .5 normal Not Available [address], [address], 08/24/2023 03:57:57 08/23/19 24 08/24/2023 CBC (INCL UDES DIFF/ PLT) absolute neutrophils 3036 cells /uL 1500-7 800 normal Not Available [address], [address], 08/24/2023 03:57:57 08/23/19 24 08/24/2023 CBC (INCL UDES DIFF/ PLT) absolute lymphocytes 2328 cells /uL 850-39 00 normal Not Available [address], [address], 08/24/2023 03:57:57 08/23/1908/24/2023 CBC (INCL UDES DIFF/ PLT) absolute monocytes 330 cells /uL 200-95 0 normal Not Available [address], [address], 08/24/2023 03:57:57 08/23/19 24 08/24/2023 CBC (INCL UDES DIFF/ PLT) absolute eosinophils 228 cells /uL 15-500 normal Not Available [address], [address], 08/24/2023 03:57:57 08/23/19 24 08/24/2023 CBC (INCL UDES DIFF/ PLT) absolute basophils 78 cells /uL 0-200 normal Not Available [address], [address], 08/24/2023 03:57:57 08/23/19 24 08/24/2023 CBC (INCL UDES DIFF/ PLT) neutrophils 50.6 % normal Not Available [address], [address], 08/24/2023 03:57:57 08/23/19 24 08/24/2023 CBC (INCL UDES DIFF/ PLT) lymphocytes 38.8 % normal Not Available [address], [address], 08/24/2023 03:57:57 08/23/19 24 08/24/2023 CBC (INCL UDES DIFF/ PLT) monocytes 5.5 % normal Not Available [address], [address], 08/24/2023 03:57:57 08/23/19 24 08/24/2023 CBC (INCL UDES DIFF/ PLT) eosinophils 3.8 % normal Not Available [address], [address], 08/24/2023 03:57:57 08/23/19 24 08/24/2023 CBC (INCL UDES DIFF/ PLT) basophils 1.3 % normal Not Available [address], [address], 08/24/2023 03:57:57 08/23/19 24 08/24/2023 VITAM IN B12/F OLATE , SERUM PANEL vitamin B12 675 pg/mL 200-11 00 normal Not Available [address], [address], 08/24/2023 03:57:58 08/23/19 24 08/24/2023 VITAM IN B12/F OLATE , SERUM PANEL folate, serum 17.6 NG/mL normal Refer ence Range Low: <3.4 Borde rline : 3.4-5 .4 Hilda l: >5.4 Not Available [address], [address], 08/24/2023 03:57:58 01/10/20 24 02/20/2024 LIPID PANEL , STAND JOON cholesterol, total 147 mg/dL <200 normal Not Available [address] [place], [address], 02/20/2024 18:11:26 01/10/20 24 02/20/2024 LIPID PANEL , STAND JOON HDL cholesterol 48 mg/dL > or = 50 low Not Available [address] [address] [place], [address], 02/20/2024 18:11:26 01/10/20 24 02/20/2024 LIPID PANEL , STAND JOON triglyceride s 181 mg/dL <150 high Not Available [facility] [address] [address] [place], [address], 02/20/2024 18:11:26 01/10/20 24 02/20/2024 LIPID PANEL [...] calcu lated using the Norma n-Hop kins myrnau stephanie n, which is a valid ated novel rylee stone than the Fried zhane equat ion in the estim ation of LDL-C . Norma fernandez SS et al. MARZENA. 2013; 310(1 9): 2061- 2068 (http ://ed ucati on.Berto winn Appointuits. com/f aq/FA Q164) Not Available [facility] [address] [address] [place], [address], 02/20/2024 18:11:26 01/10/20 24 02/20/2024 LIPID PANEL , STAND JOON chol/HDLC ratio 3.1 (calc ) <5.0 normal Not Available [facility] [address] [address] [place], [address], 02/20/2024 18:11:26 01/10/20 24 02/20/2024 LIPID PANEL , STAND JOON non HDL cholesterol 99 mg/dL _(honorio c) <130 normal For patie nts with diabe carol ann plus 1 major ASCVD risk facto r, treat ing to a non-H DL-C goal of <100 mg/dL (LDL- C of <70 mg/dL ) is eda barros optio n. Not Available [address], [address], 02/20/2024 18:11:26 01/10/20 24 02/20/2024 TSH+F REE T4 TSH 1.56 mIU/L 0.40-4 .50 normal Not Available [address], [address], 02/20/2024 18:11:28 01/10/20 24 02/20/2024 TSH+F REE T4 T4, free 1.3 NG/dL 0.8-1. 8 normal Not Available [address] [place], [address], 02/20/2024 18:11:28 01/10/20 24 02/20/2024 COMPR EHENS ROSANNE METAB OLIC PANEL glucose 88 mg/dL 65-99 normal Fasti ng refer ence inter anna Not Available [address] [place], [address], 02/20/2024 18:11:28 01/10/20 24 02/20/2024 COMPR EHENS ROSANNE METAB OLIC PANEL urea nitrogen (BUN) 13 mg/dL 7-25 normal Not Available [address], [address], 02/20/2024 18:11:28 01/10/20 24 02/20/2024 COMPR EHENS ROSANNE METAB OLIC PANEL creatinine 0.81 mg/dL 0.50-1 .05 normal Not Available [address] [place], [address], 02/20/2024 18:11:28 01/10/20 24 02/20/2024 COMPR EHENS ROSANNE METAB OLIC PANEL eGFR 82 mL/mi n/1.7 3m2 > or = 60 normal Not Available [address], [address], 02/20/2024 18:11:28 01/10/20 24 02/20/2024 COMPR EHENS ROSANNE METAB OLIC PANEL BUN/creatini ne ratio SEE NOTE: (calc ) 6-22 Not Repor charity: BUN and Creat inine are withi n refer ence range . Not Available [address], [address], 02/20/2024 18:11:28 01/10/20 24 02/20/2024 COMPR EHENS ROSANNE METAB OLIC PANEL sodium 136 mmol/ L 135-14 6 normal Not Available [address], [address], 02/20/2024 18:11:28 01/10/20 24 02/20/2024 COMPR EHENS ROSANNE METAB OLIC PANEL potassium 4.3 mmol/ L 3.5-5. 3 normal Not Available [address], [address], 02/20/2024 18:11:28 01/10/20 24 02/20/2024 COMPR EHENS ROSANNE METAB OLIC PANEL chloride 97 mmol/ L 98-110 low Not Available [address], [address], 02/20/2024 18:11:28 01/10/20 24 02/20/2024 COMPR EHENS ROSANNE METAB OLIC PANEL carbon dioxide 29 mmol/ L 20-32 normal Not Available [address], [address], 02/20/2024 18:11:28 01/10/20 24 02/20/2024 COMPR EHENS ROSANNE METAB OLIC PANEL calcium 9.4 mg/dL 8.6-10 .4 normal Not Available [address], [address], 02/20/2024 18:11:28 01/10/20 24 02/20/2024 COMPR EHENS ROSANNE METAB OLIC PANEL protein, total 6.5 g/dL 6.1-8. 1 normal Not Available [address], [address], 02/20/2024 18:11:28 01/10/20 24 02/20/2024 COMPR EHENS ROSANNE METAB OLIC PANEL albumin 4.1 g/dL 3.6-5. 1 normal Not Available [address], [address], 02/20/2024 18:11:28 01/10/20 24 02/20/2024 COMPR EHENS ROSANNE METAB OLIC PANEL globulin 2.4 g/dL_ (calc ) 1.9-3. 7 normal Not Available [address], [address], 02/20/2024 18:11:28 01/10/20 24 02/20/2024 COMPR EHENS ROSANNE METAB OLIC PANEL albumin/glob ulin ratio 1.7 (calc ) 1.0-2. 5 normal Not Available [address], [address], 02/20/2024 18:11:28 01/10/20 24 02/20/2024 COMPR EHENS ROSANNE METAB OLIC PANEL bilirubin, total 0.3 mg/dL 0.2-1. 2 normal Not Available [address], [address], 02/20/2024 18:11:28 01/10/20 24 02/20/2024 COMPR EHENS ROSANNE METAB OLIC PANEL alkaline phosphatase 71 U/L 37-153 normal Not Available [address] [place], [address], 02/20/2024 18:11:28 01/10/20 24 02/20/2024 COMPR EHENS ROSANNE METAB OLIC PANEL AST 15 U/L 10-35 normal Not Available [address] [address] [place], [address], 02/20/2024 18:11:28 01/10/20 24 02/20/2024 COMPR EHENS ROSANNE METAB OLIC PANEL ALT 13 U/L 6-29 normal Not Available [address] [address] [place], [address], 02/20/2024 18:11:28 01/10/20 24 02/20/2024 TSH W/REF YUE TO FT4 TSH w/reflex to FT4 1.56 mIU/L 0.40-4 .50 normal Not Available [address] [address] [place], [address], 02/20/2024 18:11:29 01/10/20 24 02/20/2024 DRUG MONIT OR, PANEL 5, W/CON F, URINE amphetamines TNP TEST NOT PERFO RMED No suita ble speci men recei gallo. Pleas e revie w the test requi remen ts at testd [facility] ory.q uestd iagno [employer] .com Not Available [employer] [address] [address] [place], [address], 02/20/2024 18:11:30 01/10/20 24 02/20/2024 DRUG MONIT OR, PANEL 5, W/CON F, URINE barbiturates TNP TEST NOT PERFO RMED No suita ble speci men recei gallo. Pleas e revie w the test requi remen ts at testd [facility] ory.q uestd iagno [employer] .com Not Available [employer] [address] [address] [place], [address], 02/20/2024 18:11:30 01/10/20 24 02/20/2024 DRUG MONIT OR, PANEL 5, W/CON F, URINE benzodiazepi jani TNP TEST NOT PERFO RMED No suita ble speci men recei gallo. Pleas e revie w the test requi remen ts at testd [facility] or.q [employer] Not Available [facility] [address] [place], [address], 02/20/2024 18:11:30 01/10/20 24 02/20/2024 DRUG MONIT OR, PANEL 5, W/CON F, URINE cocaine metabolite TNP TEST NOT PERFO RMED No suita ble speci men recei gallo. Pleas e revie w the test requi remen ts at testd [facility] or.q [employer] Not Available [address] [address] [place], [address], 02/20/2024 18:11:30 01/10/20 24 02/20/2024 DRUG MONIT OR, PANEL 5, W/CON F, URINE marijuana metabolite TNP TEST NOT PERFO RMED No suita ble speci men recei gallo. Pleas e revie w the test requi remen ts at testd [facility] or.q [employer] Not Available [employer] [address] [address] [place], [address], 02/20/2024 18:11:30 01/10/20 24 02/20/2024 DRUG MONIT OR, PANEL 5, W/CON F, URINE methadone metabolite TNP TEST NOT PERFO RMED No suita ble speci men recei gallo. Pleas e revie w the test requi remen ts at testd [facility] ory.q [employer] Not Available [employer] [facility] [address] [place], [address], 02/20/2024 18:11:30 01/10/20 24 02/20/2024 DRUG MONIT OR, PANEL 5, W/CON F, URINE opiates TNP TEST NOT PERFO RMED No suita ble speci men recei gallo. Pleas e revie w the test requi remen ts at [facility].q uestd [employer] Not Available [employer] [facility] [address] [place], [address], 02/20/2024 18:11:30 01/10/20 24 02/20/2024 DRUG MONIT OR, PANEL 5, W/CON F, URINE oxycodone TNP TEST NOT PERFO RMED No suita ble speci men recei gallo. Pleas e revie w the test requi remen ts at [facility].q uestd [employer] Not Available [employer] [facility] [address] [place], [address], 02/20/2024 18:11:30 01/10/20 24 02/20/2024 DRUG MONIT OR, PANEL 5, W/CON F, URINE creatinine TNP TEST NOT PERFO RMED No suita ble speci men recei gallo. Pleas e revie w the test requi remen ts at [facility].q uestd [employer] Not Available [employer] [facility] [address] [place], [address], 02/20/2024 18:11:30 01/10/20 24 02/20/2024 DRUG MONIT [...] ders needi ng Inter preta tion liberty alexandria das e conta ct us at 1.877 .40.R XTOX (1.87 7.407 .9869 ) M-F, 8am to 10pm EST Not Available [address] [address] [address], [place], [address], 02/20/2024 18:11:31 01/11/20 24 01/13/2024 DRUG MONIT OR, PANEL 5, W/CON F, URINE amphetamines NEGATI VE NG/mL <500 Not Available [address] [address] [address], [place], [address], 01/13/2024 22:45:13 01/11/20 24 01/13/2024 DRUG MONIT OR, PANEL 5, W/CON F, URINE barbiturates NEGATI VE NG/mL <300 Not Available [address] [address] [address], [place], [address], 01/13/2024 22:45:13 01/11/20 24 01/13/2024 DRUG MONIT OR, PANEL 5, W/CON F, URINE benzodiazepi jani NEGATI VE NG/mL <100 Not Available [address] [address] [address], [place], [address], 01/13/2024 22:45:13 01/11/20 24 01/13/2024 DRUG MONIT OR, PANEL 5, W/CON F, URINE cocaine metabolite NEGATI VE NG/mL <150 Not Available [address] [address] [place], [address], 01/13/2024 22:45:13 01/11/20 24 01/13/2024 DRUG MONIT OR, PANEL 5, W/CON F, URINE marijuana metabolite NEGATI VE NG/mL <20 Not Available [address] [address] [address], [place], [address], 01/13/2024 22:45:13 01/11/20 24 01/13/2024 DRUG MONIT OR, PANEL 5, W/CON F, URINE methadone metabolite NEGATI VE NG/mL <100 Not Available [address] [address] [place], [address], 01/13/2024 22:45:13 01/11/20 24 01/13/2024 DRUG MONIT OR, PANEL 5, W/CON F, URINE opiates NEGATI VE NG/mL <100 Not Available [address], [address], 01/13/2024 22:45:13 01/11/20 24 01/13/2024 DRUG MONIT OR, PANEL 5, W/CON F, URINE oxycodone NEGATI VE NG/mL <100 Not Available [address] [place], [address], 01/13/2024 22:45:13 01/11/20 24 01/13/2024 DRUG MONIT OR, PANEL 5, W/CON F, URINE creatinine 67.0 mg/dL > or = 20.0 Not Available [address], [address], 01/13/2024 22:45:13 01/11/20 24 01/13/2024 DRUG MONIT OR, PANEL 5, W/CON F, URINE pH 7.3 4.5-9. 0 Not Available [address], [address], 01/13/2024 22:45:13 01/11/20 24 01/13/2024 DRUG MONIT OR, PANEL 5, W/CON F, URINE oxidant NEGATI VE mcg/m L <200 Not Available [address], [address], 01/13/2024 22:45:13 01/11/20 24 01/13/2024 DRUG MONIT [...] M-F, 8am to 10pm EST Not Available [facility] [address] [place], [address], 01/13/2024 22:45:15 06/22/19 24 09/14/2022 DEXA No observ ation record ed. [email or web address] [facility] [address], [place], [address], 06/29/2023 10:42:34 03/02/19 25 03/01/2024 MRI, hip, w/o contr ast No observ ation record ed. [facility] [address], [place], [address], 03/02/2024 14:47:24 06/02/19 25 05/31/2024 pre opera tive order s* No observ ation record ed. [address], [place], [address], 06/03/2024 16:58:38 06/09/19 25 06/08/2024 elect vani diogr am, routi ne ECG, 12 leads min; inter preta tion and repor t (PROC ) No observ ation record ed. [address], [place], [address], 06/11/2024 10:46:46 Result Notes None recorded. Problems Name Problem SNOMED Code Status Onset Date Resolution Date Notes Provider Name and Address Organization Details Recorded Time Pain of left hip joint 02669199468 9100 Completed 202004/25/2022 Jose Be MD Attn: Lopez g,[address] [facility], [place], [address], [facility] - [facility] 3 16:40:52 Spinal stenosis of lumbar region 31588774 Active 2020 oJse Be MD Attn: Lopez winter,[address] [facility], [place], [address], [place] [facility] 3 15:48:38 Low back pain 644147019 Active 2020 Jose Be MD Attn: Lopez winter,[address] [facility], [place], [address], [place] [facility] 3 15:48:38 Osteoart hritis of left hip joint 53862190055 9108 Completed 202004/25/2022 status post total hip arthropl asty, 2020 Jose Be MD Attn: Lopez winter,[address] [facility], [place], [address], [place] [facility] 3 16:43:43 Smoker 23916366 Active 2020 Jose Be MD Attn: Lopez winter,[address] [facility], [place], [address], [place] [facility] 3 15:48:38 Long-ter m drug therapy Active 2022 Jose Be MD Attn: Lopez winter,[address] [facility], [place], [address], [place] [facility] 3 18:29:24 Menopaus e present 934200435 Active 2022 Jose Be MD Attn: Lopez winter,[address] [facility], [place], [address], [place] [facility] 3 15:48:37 Left side sciatica 88262069529 9104 Active 2022 Jose Be MD Attn: Lopez winter,[address] [facility], [place], [address], [place] [facility] 3 15:48:37 Mixed anxiety and depressi ve disorder 604711895 Active 2022 Jose Be MD Attn: Lopez winter,[address] [facility], [place], [address], [place] [facility] 3 15:48:37 Body mass index 30+ - obesity 419237850 Active 2022 Jose Be MD Attn: Lopez winter,[address] [facility], [place], [address], [place] [facility] 3 15:58:07 Allergic rhinitis caused by pollen 77715190 Active 2014 Jose Be MD Attn: Lopez winter,[address] [facility], [place], [address], [place] [facility] 3 16:44:23 Gastro-e sophagea l reflux disease with esophagi tis 801009713 Active 2015 Jose Be MD Attn: Lopez winter,[address] [facility], [place], [address], [place] [facility] 3 16:46:03 Mucocele of mouth 596790848 Completed 202206/01/2024 CLAUDIA Qureshi Attn: Lopez winter,[address] [facility], [place], [address], [place] [facility] 5 09:35:29 Xerostom ia 98443463 Completed 202206/01/2024 CLAUDIA Qureshi Attn: Lopez winter,[address] [facility], [place], [address], [place] [facility] 5 09:35:31 Acute sinusiti s 64598203 Completed 202306/01/2024 CLAUDIA Qureshi Attn: Lopez winter,[address] [facility], [place], [address], [place] [facility] 5 09:35:26 Tobacco dependen ce syndrome 01072213 Completed 201406/11/2014 Location : None;Sev erity: Moderate ;Progres s: Stable;A dded By: Nguyễn Herbert;Charlie d to Current Problems : YES Jose Be MD Attn: Lopez winter,[address] [facility], [place], [place], [address] [place] [address], [facility] - [facility] 4 16:03:29 Hyperlip idemia 01054548 Active 2012 Jose Be MD Attn: Lopez winter,[address] [facility], [place], [address] [place] [address] 2, [facility] - [facility] 3 16:48:02 Allergic rhinitis caused by pollen 92418464 Completed 201402/22/2015 Location : None;Sev erity: Moderate ;Progres s: Stable;A dded By: Dawn Johnson;Add to Current Problems : YES Jose Be MD Attn: Lopez winter,[address] [facility], [place], [place], [address] [place] [address] 2, [facility] - [facility] 3 16:44:23 Benign essentia l hyperten jonathon 4859874 Active 2012 Jose Be MD Attn: Lopez winter,[address] [facility], [place], [place], [address] [place] [address] 2, [facility] - [facility] 3 16:48:08 Gastro-e sophagea l reflux disease with esophagi tis 256105120 Completed 201501/05/2016 Location : None;Sev erity: Moderate ;Progres s: Stable;A dded By: Dawn Johnson;Add to Current Problems : NO Jose Be MD Attn: Lopez winter,[address] [facility], [place], [place], [address] [place] [address] 2, [facility] - [facility] 3 16:46:03 Generali zed anxiety disorder 62503908 Completed 201201/12/2019 Location : None;Sev erity: Moderate ;Progres s: Stable;A dded By: Dawn Johnson;Add to Current Problems : YES Dawn Johnson [place], [place] - [place] 9 15:58:50 Problem Notes None recorded. Procedures Surgical History Date Name Laterality Status Provider Name and Address Organization Details Recorded Time total replacement of left hip joint completed Jose Be MD Attn: Accounting,[address], [place], [address], [facility] - [facility] 04/25/2022 15:50:39 Date of Last Pap Smear completed Ree Sanchez [place] - [place] 06/29/2021 16:49:52 Imaging Results Imaging Date Name Status LastModified by Organization Details LastModified Time 09/14/2022 DEXA completed [address] [facility] [address], [place], [address], 06/29/2023 10:42:34 03/01/2024 MRI, hip, w/o contrast completed [facility] [address], [place], [address], 03/02/2024 14:47:24 05/31/2024 pre operative orders* completed [address] [facility], [place], [address], 06/03/2024 16:58:38 06/08/2024 electrocardiogram, routine ECG, 12 leads min; interpretation and report (PROC) completed [address] [address], [place], [address], 06/11/2024 10:46:46 Procedure Notes None recorded. Medical Equipment None Reported. Allergies Allergen ID Allergen Name Allergen Category Reaction Reaction Severity Criticality Documentation Date Start Date Code Code System Note Provider Name and Address Organization Details Recorded Time 30845 codeine sulfate medicatio n nausea moderate Not available 03/03/20162012 42384 RxNorm React ion: nause a;Sev erity : Moder ate; Comme nt: Aller gy Type: Aller gy; Not Available Not Available Not Available Medications Name Sig Start Date Stop Date Status Note LastModified by Organization Details LastModified Time celecoxib 200 mg capsule TAKE 1 CAPSULE BY MOUTH TWICE DAILY 11/22 completed Not Available Not Available Not Available cyclobenzap rine 10 mg tablet TAKE 1 TABLET BY MOUTH EVERY NIGHT AT BEDTIME active Not Available Not Available No t Available amoxicillin 500 mg capsule TAKE 1 CAPSULE [...] for 10 days. 07/11 completed RxNor m: 73792 4;All ow Subst ituti on: True Not [...] by mouth daily 11/26 completed RxNor m: 41545 1;All ow Subst ituti on: True Not [...] mcg/actuati on nasal spray,suspe nsion SHAKE LIQUID WELL AND USE 1 SPRAY IN EACH NOSTRIL EVERY DAY active Not Available Not Available No t Available sertraline 50 mg tablet TAKE 1 TABLET [...] Available sodium chloride 1,000 mg soluble tablet TAKE 1 TABLET BY MOUTH EVERY DAY IN THE MORNING FOR 30 DAYS active Not Available Not Available No t Available Eliquis 2.5 mg tablet TAKE 1 [...] Updated DateTime 4 162.56 cm 36 kg/m2 67940.4 g 97.5 [degF] 97 % 97 % 109 /min 123 mm[Hg] 80 mm[Hg] Bushra Lew [place] - [facility] 4 15:26:43 Date Recorded Body height Body mass index (BMI) Body weight Oxygen saturation Oxygen saturation in Arterial blood by Pulse oximetry Body temperature Heart rate Systolic blood pressure Diastolic blood pressure Provider Name and Address Organization Details Last Updated DateTime 4 162.56 cm 36.3 kg/m2 29849.3 9 g 95 % 95 % 97.8 [degF] 92 /min 138 mm[Hg] 82 mm[Hg] Flaquita Alcaraz [place] - [facility] 4 14:22:06 Date Recorded Body height Body mass index (BMI) Body weight Oxygen saturation Oxygen saturation in Arterial blood by Pulse oximetry Heart rate Body temperature Systolic blood pressure Diastolic blood pressure Provider Name and Address Organization Details Last Updated DateTime 5 162.56 cm 35.1 kg/m2 90616.6 4 g 96 % 96 % 108 /min 98 [degF] 134 mm[Hg] 83 mm[Hg] Flaquita Alcaraz [place] [facility] 5 10:11:17 Date Recorded Body height Body mass index (BMI) Body weight Body temperature Oxygen saturation Oxygen saturation in Arterial blood by Pulse oximetry Heart rate Systolic blood pressure Diastolic blood pressure Provider Name and Address Organization Details Last Updated DateTime 162.56 cm 33.6 kg/m2 51138.1 g 97.5 [degF] 100 % 100 % 80 /min 117 mm[Hg] 84 mm[Hg] Francisco J Del Cid [place] - [facility] 5 11:49:43 Date Recorded Body height Body mass index (BMI) Body weight Heart rate Oxygen saturation Oxygen saturation in Arterial blood by Pulse oximetry Systolic blood pressure Diastolic blood pressure Provider Name and Address Organization Details Last Updated DateTime 5 162.56 cm 33.3 kg/m2 05845.6 4 g 92 /min 99 % 99 % 128 mm[Hg] 82 mm[Hg] Cecily Sweet MA [facility] 5 09:19:54 Social History Question Answer Notes LastModified by Organizat ion Details LastModified Time Tobacco Smoking Status Former Smoker none in 27 days Francisco J Del Cid MA null, [facility] 06/01/2024 11:43:23 Do You Have An Advance [...] Anxious, Or Unable To Sleep At Night)? [id number] Information not available 06/29/2021 Do You Use [...] 1 completed CLAUDIA Qureshi Attn: Accounting,[address] [place], [address], [place] [facility] 01/09/2024 21:27:02 COVID-19, mRNA, LNP-S, PF, 30 mcg/0.3 mL dose 1 completed GRACIELA QureshiP-C Attn: Accounting,[address] [place], [address], [place] [facility] 01/09/2024 21:27:02 COVID-19, mRNA, LNP-S, bivalent, PF, 30 mcg/0.3 mL dose 2 completed AGUSTIN Qureshi-Jose Attn: Accounting,[address] [place], [address], [place] [facility] 01/09/2024 21:27:02 Influenza, split virus, quadrivalent, preservative 8 completed Not Available [facility] 03/17/2019 02:49:49 Tdap 5 completed Not Available [facility] 03/31/2019 02:11:37 Influenza, split virus, quadrivalent, preservative 5 completed Not Available [facility] 03/31/2019 02:11:37 Td (adult), 2 Lf tetanus toxoid, preservative free, adsorbed 6 completed AGUSTIN Qureshi-C Attn: Accounting,[address] [place], [address], [place] [facility] 01/09/2024 21:27:02 DT (pediatric) 5 completed Not Available [facility] 03/03/2016 05:18:15 MMR 1 completed Not Available [facility] 03/03/2016 05:18:15 OPV 3 completed Not Available [facility] 03/03/2016 05:18:16 Influenza, split virus, trivalent, PF 4 completed MARCIN [place], [place] [facility] 01/10/2024 15:02:54 Past Encounters Encounter ID Performer Location Encounter Start Date Encounter Closed Date Diagnosis/Indication Diagnosis SNOMED-CT Code Diagnosis ICD10 Code Diagnosis Note [id number] [facility] [address] [place] [address] 08/19/2016 11:46:08 08/19/2016 15:33:07 Acute maxillary sinusitis 44976716 J01.00 Low back pain 624269461 M54.5 Chest wall pain 55274844 6 R07.89 Mixed hyperlipidemia 267 745564 E78.2 Cigarette smoker 5097612 7 F17.089 [id number] [facility] [address] [place] [address] 01/25/2017 14:07:34 01/25/2017 17:09:44 Benign essential hypertension 6151984 I10 Generalize d anxiety disorder 60607176 F41.1 Low back pain 818125019 M54.5 Allergic r hinitis caused by pollen 76807689 J30.1 [id number] [facility] [address] [place] [address] 04/15/2017 12:30:40 04/15/2017 15:58:58 Acute maxillary sinusitis 22752229 J01.00 [id number] Reva ambrocio [facility] [address] [place] [address] 08/17/2017 15:11:08 08/18/2017 10:39:45 Dysuria 92168569 R30.0 Essential hypertension 31512143 I10 Generalize d anxiety disorder 19889980 F41.1 Gastroesop hageal reflux disease without esophagitis 412583422 K21.9 Change in skin lesion 39 4291869 L98.9 Low back pain 622039862 M54.5 [id number] [facility] [address] [place] [address] 12/14/2017 12:47:21 12/16/2017 13:59:05 Seasonal allergic rhinitis 544315372 J30.2 Administra tion of influenza vaccine 53418600 Z23 Colon canc er screening declined 8541626338 9109 Z53.20 will discuss at next visit [id number] CLAUDIA Pringle [facility] [address] [place] [address] 06/21/2018 14:56:33 06/21/2018 17:08:40 Lumbago with sciatica 422253915 M54.42 Trochanter ic bursitis of left hip 1043306189 78165 M70.62 [id number] [place] [address] [place] [address] 07/27/2018 16:03:23 07/28/2018 08:42:23 Lumbago with sciatica 385572872 M54.42 Gynecologi c examination 44161452 Z01.419 Essential hypertension 07817912 I10 Mixed anxi ety and depressive disorder 038420164 F41.8 Gastroesop hageal reflux disease without esophagitis 332511093 K21.9 Allergic r hinitis caused by pollen 97179933 J30.1 [id number] [facility] [address] [facility] [address] [place] [address] 01/12/2019 15:18:00 01/15/2019 09:10:59 Seasonal allergic rhinitis 871867110 J30.2 Mixed anxi ety and depressive disorder 935058059 F41.8 Intentiona l weight loss 815953301 R63.8 18 pounds in 6 mos [id number] [facility] [address] [facility] [address] [place] [address] 01/22/2019 17:02:20 01/23/2019 09:16:35 Benign essential hypertension 7644169 I10 Hyperlipidemia 65214356 E78.5 Mixed anxi ety and depressive disorder 351192609 F41.8 cont same dose for now [id number] [facility] [address] [place] [address] 05/07/2019 16:21:27 05/08/2019 11:26:12 Mixed hyperlipidemia 246253692 E78.2 Mixed anxi ety and depressive disorder 251948612 F41.8 cont same dose for now Gastroesop hageal reflux disease without esophagitis 917648744 K21.9 Essential hypertension 89040227 I10 Benign ess ential hypertension 4016407 I10 Lumbago with sciatica 20 8792246 M54.42 Allergic r hinitis caused by pollen 21676576 J30.1 [id number] Dawn Johnson [facility] [address] [place] [address] 11/19/2019 14:57:45 11/19/2019 17:24:08 Unintentional weight gain 2866893086 29188 R63.5 25 pounds Lumbar spondylosis 46529 0009 M47.896 is seeing chiropract or for treatment Recurrent falls 68123620 2 R29.6 fell at work parking lot x 2 [id number] HERMELINDO Bailey [facility] [address] [place] [address] 12/17/2019 13:04:12 12/17/2019 17:00:17 Seasonal allergic rhinitis 904561120 J30.2 continue flonase and singulair regularly, watch for colored purulent drainage, SOB, cough, fever, etc. If any of those happen she is to stay home until well and recommend COVID testing. She swears this is just her horrible seasonal allergies [id number] Dawn Johnson [facility] [address] [place] [address] 05/07/2020 13:25:22 05/07/2020 16:05:26 Low back pain 223458551 M54.5 Arthritis of left hip 10 61265548 966261 M13.852 Benign ess ential hypertension 8478402 I10 [id number] CLAUDIA Pringle [facility] [address] [place] [address] 08/19/2020 15:26:41 08/20/2020 14:24:25 Essential hypertension 96025581 I10 at goal Pain of le ft hip joint 1305414159 84683 M25.552 scheduled for left hip arthoplast y Pre-surger y evaluation 608296220 Z01.818 cleared for surgery Hypokalemia 23965798 E87 .6 potassium 3.3 on scarlett and HCTZ. 10 meq of potassium added. will check BMP on Tuesday and then follow up with BMP 1-[address] weeks [address] surgery[address]Dr Johnson to consider decresing HCTZ as she is on 50mg an currently BP is under good control Smoker 86162003 F17.909 [id number] Dawn Johnson [facility] [address] [place] [address] 04/14/2021 09:34:38 04/14/2021 17:13:42 Dysuria 35387153 R30.0 no antibiotic indicated [id number] HERMELINDO Bailey [facility] [address] [place] [address] 05/13/2021 14:21:57 05/14/2021 10:29:30 Abdominal pain 17137540 R10.9 likely IBS type picture. Encouraged colonoscop y, she will do after . Will consider CT abd sooner if symptoms worsen or persist before the colonoscop y or if labs indicate the need. Anemia fol lowing acute postoperative blood loss 8457585652 6727655 D62 if remains, will get stool for FIIT before colonoscop y scheduled Stomach cramps 33536294 R10.9 food avoidance discussed like excess caffeine, grease, spice, acid, etc. [id number] Dawn Johnson [facility] [address] [place] [address] 06/29/2021 15:57:41 06/29/2021 17:55:44 Gynecologic examination 87527435 Z01.419 Screening for malignant neoplasm of colon 973883910 Z12.11 patient has a referral for colonoscop y already with Dr. Connell and promised to do Cigarette smoker 4964328 7 F17.698 [id number] Dawn Johnson [facility] [address] [place] [address] 10/19/2021 15:29:16 10/19/2021 17:24:21 History of abnormal cervical Papanicolaou smear 388881069 Z87.42 Hyperlipidemia 40265030 E78.5 Benign ess ential hypertension 3513940 I10 Allergic rhinitis 776657 04 J30.9 [id number] Dawn Johnson [facility] [address] [place] [address] 11/16/2021 11:43:14 11/16/2021 18:03:13 Low back pain 292345441 M54.50 if patient calls back -- refer for CT abd/pelvis to r/o problems Left side sciatica [address]9923 [address]39 29585 M54.32 Body mass index 30+ - obesity 662529250 Z68.31 Smoker 73647837 F17.924 [id number] Jose Be MD [facility] [address] [facility] [place] [address] 04/21/2022 16:27:33 04/26/2022 10:38:02 Benign essential hypertension 0673953 I10 # HTN- {{Controll ed* Nearly controlled Suboptima lly controlled Uncontrol led}}- Continue current medication s. No change in management - Encouraged routine blood pressure checksat home, targetless than 140/90- DiscussedD MILI diet(https ://www.nhl bi.nih.gov /files/doc s/public/h eart/dash_ brief.pdf) anddietary sodium restrictio ns- Continue/I ncrease dietary efforts and physical activity Hyperlipidemia 11365802 E78.5 # Hyperlipid emia- Last lipid panel {{< >*}} 1 year ago- ACC/AHA CV risk {{< >*}} 7.5%- Repeat {{today at earliest convenienc e* prior to next visit in one year}}- Continue with current management without changes.- Focus on a dietlow in saturated fats(https ://www.[facility].or g/educatio n/guidelin es-for-a-l ow-cholest dayo-low-s aturated-f at-diet),b lood pressure control,sm oking cessation( http://ezequiel tyes.org/) anddaily exerciseto reduce your risk ofheart disease and stroke. Left side sciatica 74805 82604 61017 M54.32 - ongoing symptoms, severe, debilitati ng- previously seen by orthopedic back surgeon, now out of area- reviewed options: pain management , with possible injections , neurosurge ry/orthope dic back surgery- trial of skeletal muscle relaxant for symptom-re lief, along with ongoing meloxicam Mixed anxi ety and depressive disorder 329313034 F41.8 # Anxiety / Depression Increased with recent issues/fam ayaan stressorsC ontinue meds - patient advised we can adjust/inc rease medication s if necessary Long-term drug therapy 139842300 Z79.899 Checking routine labwork for ongoing long-term medication use. Screening mammography of bilateral breasts 1923092733 84251 Z12.31 Menopause present 614253 006 N95.1 Z13.820 Screening for malignant neoplasm of colon 612679266 Z12.11 Body mass index 30+ - obesity 167877477 Z68.33 Focus on a healthy diet, avoid added salt, and vowvwe0005 calories or less daily. Exercise as tolerated, targeting3 0-60 minutes of exercise daily, at least 5 days per week Smoker 99740391 F17.200 precontemp lative - readdress at follow-up Allergic r hinitis caused by pollen 82151359 J30.1 # Allergic rhinitisMo derate persistent symptoms.C ontinue with intranasal corticoste roid, oral antihistam ine, and allergen avoidance. Continue leukotrien e inhibitor. Gastro-eso phageal reflux disease with esophagitis 175294717 K21.00 # GERD {{Continue current treatment with salvage determiner proton pump inhibitor, low-dose* Continue current treatment with intermediate proton pump inhibitor, high-dose Continue current treatment with intermediate H2 molina Em piric low-dose proton pump inhibitor treatment x 12 weeks and re-evaluat e}} No suspected reflux complicati ons (Rascon/s tricture) Lifestyle modificati on: weight loss, avoid meals 2-3 hours before bedtime Consider limiting or eliminatin g food triggers:c hocolate, caffeine, citrus fruits/jui francis, alcohol, acid/spicy food.Smoki ng cessation if indicatedY early vitamin B12 and folic acid levels for salvage determiner proton pump inhibitor use [id number] Jose Be MD [facility] [address] [place] [address] 11/22/2022 11:57:02 11/22/2022 17:35:27 Benign essential hypertension 5939711 I10 # HTN- {{Controll ed* Nearly controlled Suboptima lly controlled Uncontrol led}}- Continue current medication s. No change in management - Encouraged routine blood pressure checksat home, targetless than 140/90- DiscussedD MILI diet(https ://www.nhl bi.nih.gov /files/doc s/public/h eart/dash_ brief.pdf) anddietary sodium restrictio ns- Continue/I ncrease dietary efforts and physical activity Hyperlipidemia 00855245 E78.5 # Hyperlipid emia- Last lipid panel {{<* >}} 1 year ago- ACC/AHA CV risk {{< >*}} 7.5%- Repeat {{today at earliest convenienc e prior to next visit* in one year}}- Continue with current management without changes.- Focus on a dietlow in saturated fats(https ://www.[facility].or g/educatio n/guidelin es-for-a-l ow-cholest dayo-low-s aturated-f at-diet),b lood pressure control,sm oking cessation( http://ezequiel tyes.org/) anddaily exerciseto reduce your risk ofheart disease and stroke. Left side sciatica 52730 52826 73868 M54.32 - following with neurosurge ry, interventi onal pain management - cyclobenza mary - increase dosing it tolerates- await injection therapy Mixed anxi ety and depressive disorder 184067915 F41.8 # Anxiety / Depression Increased with recent issues/fam ayaan stressorsC ontinue meds - patient advised we can adjust/inc rease medication s if necessary Gastro-eso phageal reflux disease with esophagitis 780528268 K21.00 # GERD{{Cont inue current treatment with intermediate proton pump inhibitor, low-dose* Continue current treatment with intermediate proton pump inhibitor, high-dose Continue current treatment with intermediate H2 molina Em piric low-dose proton pump inhibitor treatment x 12 weeks and re-evaluat e}}No suspected reflux complicati ons (Rascon/s tricture)L ifestyle modificati on: weight loss, avoid meals 2-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 Continue leukotrien e inhibitor. Smoker 45336934 F17.200 precontemp lative - readdress at follow-up Body mass index 30+ - obesity 929456726 Z68.33 Focus on a healthy diet, avoid added salt, and [id number] calories or less daily. Exercise as tolerated, targeting3 0-60 minutes of exercise daily, at least 5 days per week Long-term drug therapy 850045788 Z79.899 Checking routine labwork for ongoing long-term medication use. Mucocele of mouth 075355 008 K13.79 - consultati on with otolaryngo logy Xerostomia 72097988 R68. 2 - encouraged smoking cessation, increased gum chewing, hard candies- try biotene or similar [id number] Jose Be MD [facility] [address] [facility] [place] [address] 06/21/2023 14:59:23 06/22/2023 09:44:23 Hyperlipidemia 67760489 E78.5 # Hyperlipid emia Last lipid panel ~ 1 year ago ACC/AHA CV risk {{< >*}} 7.5% (8.8%) Repeat {{today at earliest convenienc e* prior to next visit in one year}} Continue with current management without changes. Focus on a dietlow in saturated fats(https ://www.[facility].or g/educatio n/guidelin es-for-a-l ow-cholest dayo-low-s aturated-f at-diet),b lood pressure control,sm oking cessation( http://ezequiel tyes.org/) anddaily exerciseto reduce your risk ofheart disease and stroke. Benign ess ential hypertension 7875553 I10 # HTN {{Controll ed* Nearly controlled Suboptima lly controlled Uncontrol led}} Continue current medication s. No change in management Encouraged routine blood pressure checksat home, targetless than 140/90 DiscussedD MILI diet(https ://www.nhl bi.nih.gov /files/doc s/public/h eart/dash_ brief.pdf) anddietary sodium restrictio ns Continue/I ncrease dietary efforts and physical activity Left side sciatica 68636 27121 46739 M54.32 following with neurosurge ry, interventi onal pain management cyclobenza mary - primary use at bedtime with acetaminop hen for improved sleepinter ventional pain management injection therapy w/ some relief Mixed anxi ety and depressive disorder 302156089 F41.8 # Anxiety{{/ Depression * /Panic attacks [...] Recommende d Cognitive Behavioral Therapy (https://w bobo.psychol ogytvelma.c om/us/ther apy-types/ cognitive- behavioral -therapy) - Encouraged relaxation techniques (https://w bobo.[facility]/holly saleem/cdr o/learning -- Communitie s/wellness /stress/st ress_hando uts/) - Stress management resources (https://w bobo.[facility]/psana SimpleSiteatry/cdr o/learning -- Communitie s/wellness /stress/st ress_resou rces/) - Self-care handouts (https://yancy mann.[facility].keyshawn styles/self-ca re-handout s/) - Recommende d mindfulnes s meditation and exercise. - Sleep hygiene (https://[facility] .[facility].edu/s leep-hygie ne/) Gastro-eso phageal reflux disease with esophagitis 774010695 K21.00 # GERDPatien t with breakthrou gh symptoms despite hi dosing of PPI. 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 Continue leukotrien e inhibitor. Smoker 85318570 F17.200 reports cutting down to 5 cigs/day - readdress at follow-up Body mass index 30+ - obesity 188819260 Z68.33 Focus on a healthy diet, avoid added salt, and nchhrm0747 calories or less daily. Exercise as tolerated, targeting3 0-60 minutes of exercise daily, at least 5 days per week Long-term drug therapy 446148347 Z79.899 Checking routine labwork for ongoing long-term medication use. Acute sinusitis 75327628 J01.90 # Sinusitis, acute, bacterialS tarted amox/clav. oral corticoste roidsDecon gestants, intranasal corticoste roid and saline.Con tinue supportive therapy. [id number] Montserrat Lujan, CLINICAL AUDITOR-C [facility] [address] [place] [address] 01/10/2024 14:00:30 01/13/2024 15:40:18 Benign essential hypertension 0670398 I10 -Controlle d on current therapy. -Goals: [...] months Mixed anxi ety and depressive disorder 848927598 F41.8 -pt PHQ elevated because of her pain and she has been out of her pregabalin for 1 week. She feel much better when she is taking it. She likes her current anxiety/de pression medication regimen and would like to continue. Hyperlipidemia 62776151 E78.5 -Will repeat lipid panel today, increased atorvastat in at last visit 6 months ago.-Will adjust if needed Gastroesop hageal reflux disease without esophagitis 533332726 K21.9 -Recommend lifestyle modificati ons:-Sanford te the head of the bed to reduce nocturnal reflux-Fabien id large meals, spicy or acidic foods, caffeine, alcohol, and tobacco-En courage weight loss if applicable -Suggest eating smaller, more frequent meals-Prov esha education on GERD, including triggers, lifestyle modificati ons, and the chronic nature of the condition. Smoker 31976689 F17.200 -Discussed with pt to quit smoking, says she has cut back to 5/day. She will consider cessation after she gets her back pain under control. Obesity 079360406 E66.9 1. Restrict Caloric Intake: Instead of [...] 5. Increase Exertion within Daily Activities : 7500-16041 Steps/day. Avoid Elevators, escalators at public places. Increase steps in parking lots!. Screening for malignant neoplasm of colon 390923700 Z12.11 -Pt did not complete previous cologuard. Agreed to have another one sent to home to complete. Chronic back pain 400471 002 G89.29 -Pt was seeing pain management who was refilling medication but they discharged her back to ortho.-Edwin montes prescribe pregabalin until pt gets in to see ortho.-rel ieves pain from 12/07 to 04/09.-cont ract signs and UDS given. Administra tion of influenza vaccine 34390422 Z23 [id number] CLAUDIA Qureshi [facility] [address] [place] [address] 04/26/2024 09:57:51 04/27/2024 11:21:35 Benign essential hypertension 1715577 I10 -Controlle d on current therapy.-G oals: BP < 140/90 per JNC8, prevent CV and renal comorbidit ies.-Shoul d notify office for BP less than 90/60.-Meg ntain a low sodium (less than 2000mg) diet and encouraged at least 30-45 minutes of aerobic activity most days of the week-Healt hy weight-Enc ouraged smoking cessation- pt is quitting on Tuesday for upcoming surgery.-f /u 6 months Left side sciatica 92013 08250 89111 M54.32 -only takes in PM at bedtime. Chronic back pain 674776 002 G89.29 -UDS given at last appt, clear-take s in AM and PM; hopefully with surgery will not need it after her recovery is over. Ortho aware of pregabalin and flexeril per consult note. Pain in ri ght hip joint [id number] 26753 M25.551 having right hip replaced on June 19 with [facility]-will back pre-op appt when she leaves today Hyperlipidemia 13656771 E78.5 -repeating lipid panel today, pt was not fasting with lipid panel at her last visit. [id number] CLAUDIA Qureshi [facility] [address] [place] [address] 06/01/2024 11:30:42 06/04/2024 10:29:21 Pre-surgery evaluation 946382022 Z01.818 -requestin g labs and EKG from [facility]. Once back I will look over and sign pre-op paperwork if all clear. [id number] Robin Hoang MD [facility] [place] [facility] [address] [place] [address] 06/11/2024 09:09:55 06/12/2024 16:03:39 Electrocardiogram abnormal 361309226 R94.31 Pre-surger y evaluation 801353911 Z01.818 Obesity 820926300 E66.9 Ex-smoker 8127095 Z87.89 1 Health Concerns Section Related Observation LastModified by Organization Detai ls LastModified Time None Recorded Concern Status LastModified by Organization Details LastModified Time None Recorded Advance Directives Directive N: Payers Encounter Date Sequence Insurance Name Policy Number Policy Lane Covered Member ID Lane Member ID Guarantor Name 06/21/2023 1 [employer] - [employer] LOC[employer] [address] Laxmi E Moffat [id number] Laxmi E Moffat 01/10/2024 1 [employer] [address] [employer] [address] [employer] Laxmi E Moffat [id number] Laxmi E Moffat 04/26/2024 1 [employer] - [employer] [address] [employer] Laxmi E Moffat [id number] 1 [id number] 01 Laxmi E Moffat 06/01/2024 1 [employer] - [employer] LOCAL [address] [employer] Laxmi E Moffat [id number] 1 [id number] 01 Laxmi E Moffat 06/11/2024 1 [employer] - [employer] LOCAL [address] [employer] [address] [employer] Laxmi E Moffat [id number] 1 [id number] 01 Laxmi E Moffat Notes Date Note Type Note Provider Name and Address Organization Details Recorded Time 4 text/html HyperlipidemiaReported bypatient.Duration:chronic Current Therapy:currently taking: [...] other chronic conditions Last routine Follow-up visit: 37Njt11Pvzj labwork: 51Wyn03 Patient reports consistent use of medications, without side effects or intolerances. Current concerns:congestedears cloggedheadacheno sore throat1 week of symptoms- Using sqjh-phh-bnxtyuu meds with minimal relief. Health maintenance:Immunizations due: COVID booster, vzv, RSVColorectal cancer screening:did not complete cologuard - patient awareWell-woman exam: 10/19Mammography: 52Usg94HNSG:completed - not in our records - AndersonLDCT: [...] No complaint}} of heartburn/regurgitation on {{no medication ahhu-zgh-leghsqh antacids H2 molina proton pump inhibitor high-dose proton pump inhibitor*}} {{Denies* Reports}} cough, shortness of breath, sore throat, changes of taste {{+ No*}} dysphagia {{+ No*}} chest pain Seasonal allergic rhinitisSymptoms controlled with montelukast, fluticasone nasal spray Nicotine dependenceprecontemplative, has quit previously, currently at 5 cigs/day -Merchandise Worker/Nursing note reviewed.- Jose Be MD Attn: Accounting,[address] [place] [address], [phone], [facility] 06/21/2023 19:41:34 4 text/html [...] is walking. CLAUDIA Qureshi Attn: Accounting,[address] [place], [address], [facility] 01/11/2024 10:24:19 5 text/html Back PainReported bypatient.Location:pain radiating to the buttocks;pain radiating to the legs Quality:sharp Severity:worsening;severe (8-10) Duration:chronic Context:prior back problems; used medications for back pain Alleviating Factors:laying down Aggravating Factors:standing, walking Associated Symptoms:no fever; no weak limbs; no numbness of the legs/feet; no tingling; no incontinence;shortness of breath(when she is in a lot of pain) CLAUDIA Qureshi Attn: Accounting,[address] [place], [address], [facility] 04/26/2024 11:37:54 5 text/html Ashley is here today for pre-op evaluation. She is having a right hip replacement. She had her EKG and blood work done yesterday at [facility]. She has not had a cigarette in 30 days and has been on weight watchers diet to keep her weight under control. CLAUDIA Qureshi Attn: Accounting,[address] [place], [address], [facility] 06/01/2024 12:31:26 5 text/html 63-day-old female who has a history of hypertension and hyperlipidemia. She quit smoking 5 weeks ago referred to me for cardiovascular evaluation as she is planning to have hip surgery.She denies complaints of chest pain tightness and pressure. She has no shortness of breath. She admits for sedentary lifestyle mainly because of her hip. She has no palpitation, dizziness lightheadedness and syncope. EKG:June 08 2024: Sinus rhythm with the low voltage in pericardial leads otherwise unremarkable. Labs04/26/24cholesterol 122, HDL 47, triglycerides 100, LDL 5611/02/20glucose 88, BUN 13, creatinine 0.81, eGFR 82, sodium 136, K+ 4.3, calcium 9.4, AST 15, ALT 13, TSH 1.56 cardiac testingstress test 08/14/20Normal resting ECG. Normal regadenoson ECG with no ischemic ST or T changes. There is no ECG evidence of myocardial ischemia with vasodilator stress. Normal left ventricle size. Left ventricular ejection fraction is 61%. TID 0.96. Normal myocardial perfusion imaging with no evidence of ischemia or scar. Robin Hoang MD Attn: Accounting,[address] [facility], [place], [address], [facility] 06/11/2024 10:02:54 OBGyn Episode No OBEpisode recorded.
--- OUTSIDE RECORDS SUMMARY | 2024-06-14 08:07 | XMS_ITS | CONTINUITY OF CARE DOCUMENT ---
Author Name juancarlos bauer Address Unknown Organization [facility] Address [address] [place] [address] Phone [phone] Care Team Providers Care Logistics Clerk Name Role Phone Lazarus GARAY, Xuan Orellana Unavailable NAYELY GARAY, AIDEN Harris Unavailable EMETERIO GARAY, AXEL Cooper Unavailable [phone] PROBLEMS Condition Status Date Provider Notes Cardiovascular screening active Xuan gilbert MD HTN essential active Xuan Qiu MD Hypercholesterolemia active Xuan ambrocio MD Preop cardiovasc. examination active Neno Qiu MD Tobacco abuse active Xuan Qiu MD GERD active Xuan Qiu MD ENCOUNTERS Date Type Provider Location Encounter Diag nosis 1 - 5 In-person encounter Office Visit Xuan Qiu MD [place] [facility] Cardiovascular screeningHTN essentialHypercholesterolemiaPreop cardiovasc. examinationTobacco abuseGERD [...] Crandall blood pressure, resting Yes Marcus busby [place] HISTORY OF MEDICATION USE Medication Status Instructions Dates Provider Indications Com ments CRANBERRY TABLET active take one tablet by mouth once daily Nika Raz EMERGEN-C IMMUNE ORAL PACKET active Nika Marby EQL FIBER THERAPY TABLET active take one tablet by mouth once daily Nika [place] CALCIUM + D3 TABLET active take one [...] Payer name Policy type / Coverage type [place] [employer] BENEFITS [employer] insurance [employer] [id number] TREATMENT PLAN Date Name Performer Cardiology: H [...]
--- OUTSIDE RECORDS SUMMARY | 2024-06-14 08:07 | XMS_ITS | Clinical Summary ---
Author Organization [facility] Address [address] [place] [address] Care Team Providers Care Governor Assembler Name Role Phone Unavailable Primary Care Provider [...] 5 Years) and At-Risk Patients (6 to 49 Years) Aged Out No longer eligible b ased on patient's age to complete this topic RSV Immunizations Under 20 Months Aged Out No longer eligible based on patient's age to complete this topic
--- OUTSIDE RECORDS SUMMARY | 2024-06-14 08:07 | XMS_ITS | Referral Summary ---
Author Organization [facility] Address [facility] [place] [address] Care Team Providers Care Pullman Clerk Name Role Phone Jose Be MD Primary [...] mg total) by mouth nightly Active ascorbic xgjq-bmiyjqmg-frv 1,000 mg powder effervescent in packet Take [...] by mouth daily 09/12/19 24 Active vitamin G-hmdrdbyghsjd-zm neral (Emergen-C) 500 mg tablet,chewable Take by [...] Care Management Improving( 8:51 AM CDT) Erika Little, JUNIOR Note: Problem: Chronic Pain Goals: 1. Minimize further functional decline 2. Maximize quality of life 3. Control pain Strategies: - Activity/exercise program recommendation - Conservative stepwise pain medicine strategy with multi-disciplinary approach - Recommend healthy lifestyle strategies and compensatory methods as needed Reduce the likelihood of falling Lifestyle Erika Little, JUNIOR Note: Below are four things you [...] home safety. Insurance [employer] C[employer] Care Teams Pullman Clerk Relationship Specialty Start Date End Date Jose Be MD PCP - General Internal Medicine 04/27/22
--- OUTSIDE RECORDS SUMMARY | 2024-06-14 08:07 | XMS_ITS | Clinical Summary ---
Author Organization [facility] Address [address] [place] [address] Care Team Providers Care Fermentation Operator Name Role Phone Jose Be MD [...] mg total) by mouth nightly Active ascorbic yxiu-elyoqdie-ynf 1,000 mg powder effervescent in packet Take [...] by mouth daily 09/12/19 24 Active vitamin M-lzujbylwapek-fw neral (Emergen-C) 500 mg tablet,chewable Take by [...] Management Improving( 8:51 AM CDT) Erika Little, RN Note: Problem: Chronic Pain Goals: 1. Minimize further functional decline 2. Maximize quality of life 3. Control pain Strategies: - Activity/exercise program recommendation - Conservative stepwise pain medicine strategy with multi-disciplinary approach - Recommend healthy lifestyle strategies and compensatory methods as needed Reduce the likelihood of falling Lifestyle Erika Little RN Note: Below are four things you [...] on stairs Contact your local community or [facility] for information on exercise, fall prevention programs, or options for improving home safety. Insurance CIGNA CIGNA Care Teams Fermentation Operator Relationship Specialty Start Date End Date Jose Be MD PCP - General Internal Medicine 04/27/22
== END 2024-06-14 07:58 | disposition home or self-care (01) ==
DX: Z01.818 Encounter for other preprocedural examination (principal)
CPT/HCPCS: 78452; 93017; A9502; J2785

== ENCOUNTER 2024-06-19 03:17 | Day surgery (SDC) | payer OTHER, SELFPAY ==
--- NOTE | 2024-05-31 08:02 | PC.NURSE ---
Report to the Outpatient Waiting Room, entrance under the green pavilion located off [facility], at time __6:00am on date ___06/19/24____. Planned Procedure Time: __7:30am .? Time changes happen often and if your time is changed the preop area will call you the afternoon before. - You and your visitor will be asked to self-screen and do not enter if you have any COVID symptoms. Please call surgeon if you need to reschedule. - A mask is optional within the hospital at this time. Patients may have clear liquids (water, carbonated beverages, clear teas, apple juice) until 3 hours prior to surgery (4:30am) with a maximum of 20 ounces. - No food from midnight until time of surgery and no smoking, or chewing tobacco (or any form of nicotine). No chewing gum, candy or mints. Take only the following medications with a SIP of water on the morning of surgery: __BUPROPION, SERTRALINE DO NOT STOP ANY OF YOUR OTHER PRESCRIPTION MEDICATIONS PRIOR TO SURGERY EXCEPT THE FOLLOWING Hold all vitamins and supplements for 3 days per anesthesiologist.- LAST DOSE 06/15/24 Medications to discontinue per physician NONE Date to take last dose Please no make-up, nail turkish, hairspray, perfume, deodorant, or body powder the day of surgery.? No jewelry (including any body piercings) or valuables the day of surgery, leave them at home.? Please take a shower or bath the night before, or the morning of, surgery with an antibacterial soap.? Wear comfortable, loose fitting clothing.? - Jewelry must be removed prior to entering the operating room.? Rings and piercings that are not removed may be cut off. - The hospital will not accept responsibility for valuables.? - Please leave all valuables, including medications, at home the day of surgery. If you are going home after surgery, a licensed belly dump driver must drive you home.? - NO public transportation without another adult if you receive anesthesia. - We recommend that an adult stay with you for 24 hours following discharge. - We also recommend that you do not drive, make important decision, drink alcoholic beverages, or take any drugs that were not prescribed by your health care provider for at least 24 hours after your discharge time. Follow any additional instructions given to you from your surgeon. Telephone instructions given to ____patient & husband and asked if any additional questions and then verbalized understanding. Patient advised to call surgeon office or pre surgery nurse liaison [phone] if any additional questions.
[2024-05-31 08:18] VITALS: BP 116/77; PULSE 79; RESP 16; TEMP 36.2; O2SAT 99; BMI 34.2
--- NOTE | 2024-06-18 11:49 | PM.IMHP ---
H&P: HPI History of Present Illness Date/Time: 06/18/24 11:49 Chief Complaint: Right hip DJD Narrative: 63-year-old female presents today for a right anterior total hip arthroplasty. Patient underwent left total hip arthroplasty in 2020 and left hip is doing very well. Her right hip he has advanced type 1 osteoarthritis. This point patient is having significant symptoms on a daily basis. She is at the point where she feels she cannot tolerate it. She feels she is ready proceed total hip arthroplasty at this point. Review of Systems Review of Systems: All systems reviewed & are unremarkable except as noted in HPI and below PMFSH Past Medical History Medical History Arthritis GERD (gastroesophageal reflux disease) Anxiety Surgical History Surgical History History of hip replacement 2020 Left Hip Family History Family History Mother Hypertension Social History Social History (Updated 06/06/24 @ 15:36 by Sultana Barron CMA) Smoking packs per day: 0.5 Smoking cigarettes per day: 10.0 Years smoked: 25 Smoking pack-years: 12.50 Smoking status: Former smoker Tobacco type: cigarettes Smoking end date: 05/06/24 Additional smoking assessment comments: pt states that she has not smoked in 10 days Alcohol intake: never Substance use: never Current Housing: Decline to Answer Concerned About Future Housing: Decline to Answer Difficulty Paying Gas/Electric Bills: Decline to Answer Difficulty Paying for Meds: Decline to Answer Currently Unemployed: Decline to Answer Education: Decline to Answer Difficulty w/ Childcare or Family Care: Decline to Answer Living arrangements: with family Additional living arrangements comments: [facility] Spiritual care concerns: No Meds Home Medications and Allergies Home Medications ?Medication ?Instructions ?Recorded ?Confirmed ?Type acetaminophen 500 mg capsule 1,000 mg PO .HS 02/06/24 06/12/24 History ascorbic acid 1,000 1 ea PO DAILY 02/06/24 06/12/24 History sk-midjrgiltxwa-xcgrhsaz powder effervescent pack (Emergen-C) atorvastatin 20 mg tablet 20 mg PO QHS 02/06/24 06/12/24 History bupropion HCl 150 mg 24 hr tablet, 150 mg PO QAM 02/06/24 06/12/24 History extended release calcium carbonate (Calcium 600) 600 mg PO DAILY 02/06/24 06/12/24 History cholecalciferol (vitamin D3) 125 125 mcg PO DAILY 02/06/24 06/12/24 History mcg (5,000 unit) capsule cyclobenzaprine 10 mg tablet 10 mg PO .HS 02/06/24 06/12/24 History fluticasone propionate 50 1 spray intranasal DAILY 02/06/24 06/12/24 History mcg/actuation nasal spray,suspension (Allergy Relief (fluticasone)) hydrochlorothiazide 25 mg tablet 50 mg PO QAM 02/06/24 06/12/24 History melatonin 10 mg chewable tablet 20 mg PO HS 02/06/24 06/12/24 History montelukast 10 mg tablet 10 mg PO DAILY 02/06/24 06/12/24 History omeprazole 40 mg capsule,delayed 40 mg PO BID 02/06/24 06/12/24 History release pregabalin 50 mg capsule 50 mg PO BID 02/06/24 06/12/24 History psyllium husk 0.4 gram capsule 0.4 g PO DAILY 02/06/24 06/12/24 History (Daily Fiber) sertraline 50 mg tablet 50 mg PO DAILY 02/06/24 06/12/24 History cranberry extract 425 mg capsule 4,200 mg PO DAILY 05/31/24 06/12/24 History lisinopril 40 mg tablet 40 mg PO HS 05/31/24 06/12/24 History Allergies Allergy/AdvReac Type Severity Reaction Status Date / Time codeine AdvReac Mild Nausea and Verified 06/06/24 11:31 Vomiting Exam Narrative: 63-year-old female alert pleasant. She is 5 ft 3 and 195 lb BMI is 34 point. Skin over the anterior lateral hip and groin area normal. Her right hip flexes to 95 causing lateral hip pain internal rotation 5? causing lateral hip pain and medial groin pain. External rotation 40 which is without discomfort. Stinchfield maneuver causes her mild lateral hip pain. She has some mild weakness with abductor testing lateral position and qgbg-om-gttfrdkk tenderness over the greater trochanter. She has normal sensation right lower extremity. 2+ dorsalis pedis pulse in her foot. Is no edema in either lower extremity. Resp: Auscultation: clear to auscultation bilaterally Cardio: Rate: regular rate Rhythm: regular rhythm Assessment and Plan Assessment and plan (1) Primary osteoarthritis of right hip: Code(s): M16.11 - Unilateral primary osteoarthritis, right hip Status: Acute Assessment and Plan: 63-year-old female who has advanced osteoarthritis the right hip. She is having rather severe symptoms on a daily basis and it is limiting her activities. Feels she is ready proceed with total hip arthroplasty at this point. Surgical procedures well as the risks and complications were discussed in detail and all questions were answered we will proceed. Patient will see her primary care doctor pre-surgical clearance. She will stop her aspirin in any other ibuprofen products 1 week prior to surgery. Her hemoglobin is 12.8 and platelets were 333. Chem panel is all within normal limits creatinine 0.77. Her EKG did show low voltage his he was evaluated by cardiology. She had a stress test done which showed no abnormalities, ejection fraction was greater than 70%. She has been cleared from cardiology.
[2024-06-19] VITALS (13 sets, daily range): BP systolic 91–157; BP diastolic 61–81; PULSE 73–84; RESP 12–20; TEMP 36.3–36.6; O2SAT 93–100; BMI 33.5
--- NOTE | ~2024-06-19 | XR_ITS ---
EXAMINATION: XR hip RT 1V w AP pelvis DATE: 06/19/2024 10:47 INDICATION: Right total hip arthroplasty TECHNIQUE: 2 views right hip FINDINGS: There is a right total hip arthroplasty in expected position. Subcutaneous gas with soft t issue swelling are consistent with recent surgery. IMPRESSION: 1. Recent right total hip arthroplasty. Reviewed, dictated and finalized at location A.
--- NOTE | ~2024-06-19 | XR_ITS ---
EXAMINATION: XR surgery orthopedic DATE: 06/19/2024 10:29 INDICATION: Right total hip arthroplasty TECHNIQUE: Single frontal fluoroscopic image of the right hip was obtained during procedure performed by Dr. Ryan. Radiologist was not present for the imaging or procedure. The amount of fluoroscopy t nadira used during this procedure was 0.7 minutes. Total DAP was 0.300 mGym^2. COMPARISON: Right hip radiographs dated 02/06/2024 FINDINGS: Interval placement of a noncemented right total hip arthroplasty is near-anatomic alignment. The acet abular component is affixed with at least a single screw. No fracture. Expected small amount of lucen t soft tissue gas at the operative bed. IMPRESSION: 1. Expected appearance of a right total hip arthroplasty. See procedure note for further detail. Reviewed, dictated and finalized at location A. IMPRESSION: 1. Expected appearance of a right total hip arthroplasty. See procedure note fo r further detail.
--- OUTSIDE RECORDS SUMMARY | 2024-06-19 03:21 | XMS_ITS | Clinical Summary ---
Author Organization [facility] Address [address] [place] [id number] Care Team Providers Care Program Director Substance Abuse Name Role Phone Unavailable Primary Care Provider [...] Screening with HPV 1990 Mammogram Screening 2000 Pneumococcal Vaccine: 50+ Ye ars (1 of 1 - PCV) 2010 Zoster Vaccines (1 of 2) 2010 COVID-19 [...]
--- OUTSIDE RECORDS SUMMARY | 2024-06-19 03:21 | XMS_ITS | CONTINUITY OF CARE DOCUMENT ---
Author Name juancarlos bauer Address Unknown Organization [facility] Address [address] [facility] [address] [place] [address] Phone [phone] Care Team Providers Care Edge Stitcher Name Role Phone Lazarus GARAY, Xuan Orellana Unavailable NAYELY GARAY, AIDEN Harris Unavailable [phone] EMETERIO GARAY, AXEL Cooper Unavailable PROBLEMS Condition [...] In-person encounter Office Visit Xuan Qiu MD [facility] Cardiovascular screeningHTN essentialHypercholesterolemiaPreop cardiovasc. examinationTobacco abuseGERD [...] [place] blood pressure, resting Yes Marcus busby [place] HISTORY OF MEDICATION USE Medication Status Instructions Dates Provider Indications Com ments CRANBERRY TABLET active take one tablet by mouth once daily Nika Raz EMERGEN-C IMMUNE ORAL PACKET active Nika Marby EQL FIBER THERAPY TABLET active take one tablet by mouth once daily Nika [place] CALCIUM + D3 TABLET active take one [...] Payer name Policy type / Coverage type [place] [employer] [id number] TREATMENT PLAN Date Name Performer Cardiology: H [...]
--- OUTSIDE RECORDS SUMMARY | 2024-06-19 03:21 | XMS_ITS | Referral Summary ---
Author Organization [facility] Address Formerly [facility] [place] [address] Care Team Providers Care Coordinator Of Library Services Name Role Phone Jose Be MD Primary [...] mg total) by mouth nightly Active ascorbic kcft-xwuqnbwf-ngn 1,000 mg powder effervescent in packet Take [...] by mouth daily 09/12/19 24 Active vitamin K-dnpjvvmlmvck-aj neral (Emergen-C) 500 mg tablet,chewable Take by [...] home safety. Insurance [employer] Care Teams Coordinator Of Library Services Relationship Specialty Start Date End Date Jose Be MD PCP - General Internal Medicine 04/27/22
--- OUTSIDE RECORDS SUMMARY | 2024-06-19 03:21 | XMS_ITS | Clinical Summary ---
Author Organization [facility] Address [address] [place] [id number] Care Team Providers Care Tailer In Name Role Phone Jose Be MD Primary [...] mg total) by mouth nightly Active ascorbic ozvk-wjqlbcfu-zwy 1,000 mg powder effervescent in packet Take [...] by mouth daily 09/12/19 24 Active vitamin Y-rnaerwxxvkkb-rj neral (Emergen-C) 500 mg tablet,chewable Take by [...] on stairs Contact your local community or [facility] for information on exercise, fall prevention programs, or options for improving home safety. Insurance [employer] Care Teams Tailer In Relationship Specialty Start Date End Date Jose Be MD PCP - General Internal Medicine 04/27/22
--- OUTSIDE RECORDS SUMMARY | 2024-06-19 03:21 | XMS_ITS | Data Portability ---
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 Name Role Phone MONTSERRAT LUJAN Primary Care [...] available Lab lipid panel, serum 2024 025 [employer] [facility], [address], [place], [address], 04/27/2024 13:42:28 lipid panel, serum 2023 024 [employer] [facility], [address], [place], [address], 02/20/2024 18:11:27 TSH, serum or plasma 2023 024 [employer] [facility], [address], [place], [address], 02/20/2024 18:11:29 drug screen, urine 2023 [facility], [address], [place], [address], 01/13/2024 22:45:14 noninvasi ve colorecta l cancer DNA + occult blood screening , QL, stool 2023 [facility] (Cologuard Orders Only), [address], [address], [place], [address], 01/10/2024 14:54:02 CMP, serum or plasma 2023 [facility], [address], [place], [address], 02/20/2024 18:11:28 CMP, serum or plasma 2023 024 [email or web address], [address], [place], [address], 07/21/2023 16:24:10 CBC w/ auto diff 2023 024 [email or web address], [address], [place], [address], 07/21/2023 16:24:10 magnesium , serum or plasma 2023 024 [email or web address], [address], [place], [address], 07/21/2023 16:24:10 lipid panel, serum 2023 024 [email or web address], [address] , [place], [address], 07/21/2023 16:24:10 vitamin B12 + folate, serum or blood 2023 024 [email or web address], [address], [place], [address], 07/21/2023 16:24:10 Referral None recorded. Procedures lexiscan cardiolit e stress test (PROC) 2024 [facility], [facility], [place], [address], 06/14/2024 14:04:24 Surgeries None recorded. Imaging None recorded. Medication Orders pregabali n 50 mg capsule 2024 025 [facility] #[facility]6903, [address], [place], [place], [id number], 04/26/2024 10:39:31 cyclobenz aprine 10 mg tablet 2024 025 [facility] #94670, [address] [facility], [place], [place], [id number], 04/26/2024 11:37:19 hydrochlo rothiazid e 25 mg tablet 2024 025 [facility] #23801, [address] [facility], [place], [place], [id number], 04/26/2024 10:39:28 bupropion HCl XL 150 mg 24 hr tablet, extended release 2023 024 [facility] #62184, [address] [facility], [place], [place], [id number], 01/10/2024 14:54:02 pregabali n 50 mg capsule 2023 024 [facility], [address] [facility], [place], [place], [id number], 01/10/2024 14:54:02 omeprazol e 40 mg capsule,d elayed release 2023 024 [facility] #17472, [address] [facility], [place], [place], [id number], 06/21/2023 16:39:02 amoxicill in 875 mg-potass ium clavulana te 125 mg tablet [address] [facility] #18065, [address], [place], [place], [id number], 08/16/2023 19:25:34 prednison e 20 mg tablet 2023 024 [facility] [address] [facility] #65037, [address], [place], [place], [id number], 08/16/2023 19:25:46 hydrochlo rothiazid e 25 mg tablet 2023 024 [facility] #06843, [address], [place], [place], [id number], 06/21/2023 19:43:12 atorvasta tin 10 mg tablet 2023 024 [facility] #09724, [address], [place], [place], [id number], 01/10/2024 14:08:30 Patient TargetsNo targets recorded. Patient Instructions Encounter Date Encounter Id Patient Instructions Last Modified By Organization Details Last Modified Time 06/21/2023 [id number] Acute Sinusitis: Care Instructions [email or web address] Not available 06/21/2023 16:38:51 learning about high blood pressure [id number] Not available 06/21/2023 16:38:51 high cholesterol: care instructions [email or web address] Not available 06/21/2023 16:38:51 learning about healthy weight [email or web address] Not available 06/21/2023 16:38:51 Ashley, - Thank [...] of green and leafy vegetables, including salads. [email or web address] Not available 06/21/2023 16:39:51 01/10/2024 [id number] Quitting Tobacco: Care Instructions [email or web address] Not available 01/10/2024 14:54:01 A healthy lifestyle: care instructions jreuss Not available 01/10/2024 14:54:02 06/11/2024 [id number] A healthy lifestyle: care instructions [email or web address] Not available 06/11/2024 09:46:56 Reason for Referral None Reported. Results Created Date Observation Date Name Description Value Unit Range Abnormal Flag Note LastModifiedBy Organization Detail LastModifiedTime 08/23/19 24 08/24/2023 LIPID PANEL , STAND JOON cholesterol, total 168 mg/dL <200 normal Not Available [address], [address], 08/24/2023 03:57:56 08/23/19 24 08/24/2023 LIPID PANEL , STAND JOON HDL cholesterol 43 mg/dL > or = 50 low Not Available [address], [address], 08/24/2023 03:57:56 08/23/19 24 08/24/2023 LIPID PANEL , STAND JOON triglyceride s 243 mg/dL <150 high If a non-f astin g speci men was colle cted, consi rosario repea t trigl yceri de testi ng on a fasti ng speci men if clini libby indic ated. Camilo pickett et al. J. of Clin. Lipid ol. 2015; 9:129 -169. Not Available [address], [address], 08/24/2023 03:57:56 08/23/19 24 08/24/2023 LIPID PANEL [...] which is a valid ated novel rylee gonzalez acraeann than the Fried zhane equat ion in the estim ation of LDL-C . Norma fernandez SS et al. MARZENA. 2013; 310(1 9): 2061- 2068 (http ://ed ucati on.Qu estDi agnos tics. com/f aq/FA Q164) Not Available [address] [place], [address], 08/24/2023 03:57:56 08/23/19 24 08/24/2023 LIPID PANEL , STAND JOON chol/HDLC ratio 3.9 (calc ) <5.0 normal Not Available [address], [address], 08/24/2023 03:57:56 08/23/19 24 08/24/2023 LIPID PANEL , STAND JOON non HDL cholesterol 125 mg/dL _(honorio c) <130 normal For patie nts with diabe carol ann plus 1 major ASCVD risk facto r, treat ing to a non-H DL-C goal of <100 mg/dL (LDL- C of <70 mg/dL ) is consi dered a thera peuti c optio n. Not Available [address], [address], 08/24/2023 03:57:56 08/23/19 24 08/24/2023 MAGNE SIUM magnesium 1.9 mg/dL 1.5-2. 5 normal Not Available [address], [address], 08/24/2023 03:57:56 08/23/19 24 08/24/2023 COMPR EHENS ROSANNE METAB OLIC PANEL glucose 109 mg/dL 65-99 high Fasti ng refer ence inter anna For someo ne witho ut known diabe carol ann, a gluco se value betwe en 100 and 125 mg/dL is consi stent with predi abete s and shoul d be confi rmed with a follo w-up test. Not Available [employer] [address], [address], 08/24/2023 03:57:57 08/23/19 24 08/24/2023 COMPR EHENS ROSANNE METAB OLIC PANEL urea nitrogen (BUN) 13 mg/dL 7-25 normal Not Available [employer] [address], [address], 08/24/2023 03:57:57 08/23/19 24 08/24/2023 COMPR EHENS ROSANNE METAB OLIC PANEL creatinine 0.89 mg/dL 0.50-1 .05 normal Not Available [address], [address], 08/24/2023 03:57:57 08/23/19 24 08/24/2023 COMPR EHENS ROSANNE METAB OLIC PANEL eGFR 73 mL/mi n/1.7 3m2 > or = 60 normal Not Available [address], [address], 08/24/2023 03:57:57 08/23/19 24 08/24/2023 COMPR EHENS ROSANNE METAB OLIC PANEL BUN/creatini ne ratio SEE NOTE: (calc ) 6-22 Not Repor charity: BUN and Creat inine are withi n refer ence range . Not Available [address], [address], 08/24/2023 03:57:57 08/23/19 24 08/24/2023 COMPR EHENS ROSANNE METAB OLIC PANEL sodium 136 mmol/ L 135-14 6 normal Not Available [address], [address], 08/24/2023 03:57:57 08/23/19 24 08/24/2023 COMPR EHENS ROSANNE METAB OLIC PANEL potassium 4.2 mmol/ L 3.5-5. 3 normal Not Available [address], [address], 08/24/2023 03:57:57 08/23/19 24 08/24/2023 COMPR EHENS ROSANNE METAB OLIC PANEL chloride 100 mmol/ L 98-110 normal Not Available [address], [address], 08/24/2023 03:57:57 08/23/19 24 08/24/2023 COMPR EHENS ROSANNE METAB OLIC PANEL carbon dioxide 29 mmol/ L 20-32 normal Not Available [address], [address], 08/24/2023 03:57:57 08/23/19 24 08/24/2023 COMPR EHENS ROSANNE METAB OLIC PANEL calcium 9.3 mg/dL 8.6-10 .4 normal Not Available [address], [address], 08/24/2023 03:57:57 08/23/19 24 08/24/2023 COMPR EHENS ROSANNE METAB OLIC PANEL protein, total 6.6 g/dL 6.1-8. 1 normal Not Available [address], [address], 08/24/2023 03:57:57 08/23/19 24 08/24/2023 COMPR EHENS ROSANNE METAB OLIC PANEL albumin 4.2 g/dL 3.6-5. 1 normal Not Available [address], [address], 08/24/2023 03:57:57 08/23/19 24 08/24/2023 COMPR EHENS ROSANNE METAB OLIC PANEL globulin 2.4 g/dL_ (calc ) 1.9-3. 7 normal Not Available [address], [address], 08/24/2023 03:57:57 08/23/19 24 08/24/2023 COMPR EHENS ROSANNE METAB OLIC PANEL albumin/glob ulin ratio 1.8 (calc ) 1.0-2. 5 normal Not Available [address], [address], 08/24/2023 03:57:57 08/23/19 24 08/24/2023 COMPR EHENS ROSANNE METAB OLIC PANEL bilirubin, total 0.4 mg/dL 0.2-1. 2 normal Not Available [address], [address], 08/24/2023 03:57:57 08/23/19 24 08/24/2023 COMPR EHENS ROSANNE METAB OLIC PANEL alkaline phosphatase 64 U/L 37-153 normal Not Available [facility] [email or web address] [address], [address], 08/24/2023 03:57:57 08/23/19 24 08/24/2023 COMPR EHENS ROSANNE METAB OLIC PANEL AST 15 U/L 10-35 normal Not Available [address], [address], 08/24/2023 03:57:57 08/23/19 24 08/24/2023 COMPR EHENS ROSANNE METAB OLIC PANEL ALT 14 U/L 6-29 normal Not Available [address], [address], 08/24/2023 03:57:57 08/23/19 24 08/24/2023 CBC (INCL UDES DIFF/ PLT) white blood cell count 6.0 thous and/u L 3.8-10 .8 normal Not Available [address], [address], 08/24/2023 03:57:57 08/23/19 24 08/24/2023 CBC (INCL UDES DIFF/ PLT) red blood cell count 4.08 james on/uL 3.80-5 .10 normal Not Available [address], [address], 08/24/2023 03:57:57 08/23/19 24 08/24/2023 CBC (INCL UDES DIFF/ PLT) hemoglobin 12.7 g/dL 11.7-1 5.5 normal Not Available [employer] [address], [address], 08/24/2023 03:57:57 08/23/19 24 08/24/2023 CBC (INCL UDES DIFF/ PLT) hematocrit 38.6 % 35.0-4 5.0 normal Not Available [address], [address], 08/24/2023 03:57:57 08/23/19 24 08/24/2023 CBC (INCL UDES DIFF/ PLT) MCV 94.6 fL 80.0-1 00.0 normal Not Available [address], [address], 08/24/2023 03:57:57 08/23/19 24 08/24/2023 CBC (INCL UDES DIFF/ PLT) MCH 31.1 pg 27.0-3 3.0 normal Not Available [address], [address], 08/24/2023 03:57:57 08/23/19 24 08/24/2023 CBC (INCL UDES DIFF/ PLT) MCHC 32.9 g/dL 32.0-3 6.0 normal Not Available [address], [address], 08/24/2023 03:57:57 08/23/19 24 08/24/2023 CBC (INCL UDES DIFF/ PLT) RDW 13.1 % 11.0-1 5.0 normal Not Available [address], [address], 08/24/2023 03:57:57 08/23/19 24 08/24/2023 CBC (INCL UDES DIFF/ PLT) platelet count 358 thous and/u L 140-40 0 normal Not Available [address], [address], 08/24/2023 03:57:57 08/23/19 24 08/24/2023 CBC (INCL UDES DIFF/ PLT) MPV 10.1 fL 7.5-12 .5 normal Not Available [address], [address], 08/24/2023 03:57:57 08/23/19 24 08/24/2023 CBC (INCL UDES DIFF/ PLT) absolute neutrophils 3036 cells /uL 1500-7 800 normal Not Available [address], [address], 08/24/2023 03:57:57 08/23/19 24 08/24/2023 CBC (INCL UDES DIFF/ PLT) absolute lymphocytes 2328 cells /uL 850-39 00 normal Not Available [address], [address], 08/24/2023 03:57:57 08/23/19 24 08/24/2023 CBC (INCL UDES DIFF/ PLT) absolute monocytes 330 cells /uL 200-95 0 normal Not Available [address], [address], 08/24/2023 03:57:57 08/23/19 24 08/24/2023 CBC (INCL UDES DIFF/ PLT) absolute eosinophils 228 cells /uL 15-500 normal Not Available [address], [address], 08/24/2023 03:57:57 08/23/19 24 08/24/2023 CBC (INCL UDES DIFF/ PLT) absolute basophils 78 cells /uL 0-200 normal Not Available [address], [address], 08/24/2023 03:57:57 08/23/19 24 08/24/2023 CBC (INCL UDES DIFF/ PLT) neutrophils 50.6 % normal Not Available [address], [address], 08/24/2023 03:57:57 08/23/19 24 08/24/2023 CBC (INCL UDES DIFF/ PLT) lymphocytes 38.8 % normal Not Available [address], [address], 08/24/2023 03:57:57 08/23/19 24 08/24/2023 CBC (INCL UDES DIFF/ PLT) monocytes 5.5 % normal Not Available [address], [address], 08/24/2023 03:57:57 08/23/19 24 08/24/2023 CBC (INCL UDES DIFF/ PLT) eosinophils 3.8 % normal Not Available [address], [address], 08/24/2023 03:57:57 08/23/19 24 08/24/2023 CBC (INCL UDES DIFF/ PLT) basophils 1.3 % normal Not Available [address], [address], 08/24/2023 03:57:57 08/23/19 24 08/24/2023 VITAM IN B12/F OLATE , SERUM PANEL vitamin B12 675 pg/mL 200-11 00 normal Not Available [address], [address], 08/24/2023 03:57:58 08/23/19 24 08/24/2023 VITAM IN B12/F OLATE , SERUM PANEL folate, serum 17.6 NG/mL normal Refer ence Range Low: <3.4 Borde rline : 3.4-5 .4 Hilda l: >5.4 Not Available [address], [address], 08/24/2023 03:57:58 01/10/20 24 02/20/2024 LIPID PANEL , STAND JOON cholesterol, total 147 mg/dL <200 normal Not Available [address] [place], [address], 02/20/2024 18:11:26 01/10/20 24 02/20/2024 LIPID PANEL , STAND JOON HDL cholesterol 48 mg/dL > or = 50 low Not Available [facility] [address] [place], [address], 02/20/2024 18:11:26 01/10/20 24 02/20/2024 LIPID PANEL , STAND JOON triglyceride s 181 mg/dL <150 high Not Available [facility] [address] [address] [place], [address], 02/20/2024 18:11:26 01/10/20 24 02/20/2024 LIPID PANEL [...] 9): 2061- 2068 (http ://ed ucati on.Berto stokesInstacart. com/f aq/FA Q164) Not Available [facility] [address] [address] [place], [address], 02/20/2024 18:11:26 01/10/20 24 02/20/2024 LIPID PANEL , STAND JOON chol/HDLC ratio 3.1 (calc ) <5.0 normal Not Available [facility] [address] [place], [address], 02/20/2024 18:11:26 01/10/20 24 02/20/2024 LIPID PANEL , STAND JOON non HDL cholesterol 99 mg/dL _(honorio c) <130 normal For patie nts with diabe carol ann plus 1 major ASCVD risk facto r, treat ing to a non-H DL-C goal of <100 mg/dL (LDL- C of <70 mg/dL ) is eda barros optio n. Not Available [address], [address], 02/20/2024 18:11:26 01/10/20 24 02/20/2024 TSH+F REE T4 TSH 1.56 mIU/L 0.40-4 .50 normal Not Available [address], [address], 02/20/2024 18:11:28 01/10/20 24 02/20/2024 TSH+F REE T4 T4, free 1.3 NG/dL 0.8-1. 8 normal Not Available [address] [place], [address], 02/20/2024 18:11:28 01/10/20 24 02/20/2024 COMPR EHENS ROSANNE METAB OLIC PANEL glucose 88 mg/dL 65-99 normal Fasti ng refer ence inter anna Not Available [address], [address], 02/20/2024 18:11:28 01/10/20 24 02/20/2024 COMPR EHENS ROSANNE METAB OLIC PANEL urea nitrogen (BUN) 13 mg/dL 7-25 normal Not Available [employer] [address] [place], [address], 02/20/2024 18:11:28 01/10/20 24 02/20/2024 COMPR EHENS ROSANNE METAB OLIC PANEL creatinine 0.81 mg/dL 0.50-1 .05 normal Not Available [address], [address], 02/20/2024 18:11:28 01/10/20 24 02/20/2024 COMPR EHENS ROSANNE METAB OLIC PANEL eGFR 82 mL/mi n/1.7 3m2 > or = 60 normal Not Available [address], [address], 02/20/2024 18:11:28 01/10/20 24 02/20/2024 COMPR EHENS ROSANNE METAB OLIC PANEL BUN/creatini ne ratio SEE NOTE: (calc ) 6-22 Not Repor chraity: BUN and Creat inine are withi n refer ence range . Not Available [address], [address], 02/20/2024 18:11:28 01/10/20 24 02/20/2024 COMPR EHENS ROSANNE METAB OLIC PANEL sodium 136 mmol/ L 135-14 6 normal Not Available [address], [address], 02/20/2024 18:11:28 01/10/20 24 02/20/2024 COMPR EHENS ROSANNE METAB OLIC PANEL potassium 4.3 mmol/ L 3.5-5. 3 normal Not Available [address], [address], 02/20/2024 18:11:28 01/10/20 24 02/20/2024 COMPR EHENS ROSANNE METAB OLIC PANEL chloride 97 mmol/ L 98-110 low Not Available [address], [address], 02/20/2024 18:11:28 01/10/20 24 02/20/2024 COMPR EHENS ROSANNE METAB OLIC PANEL carbon dioxide 29 mmol/ L 20-32 normal Not Available [address], [address], 02/20/2024 18:11:28 01/10/20 24 02/20/2024 COMPR EHENS ROSANNE METAB OLIC PANEL calcium 9.4 mg/dL 8.6-10 .4 normal Not Available [address], [address], 02/20/2024 18:11:28 01/10/20 24 02/20/2024 COMPR EHENS ROSANNE METAB OLIC PANEL protein, total 6.5 g/dL 6.1-8. 1 normal Not Available [address], [address], 02/20/2024 18:11:28 01/10/20 24 02/20/2024 COMPR EHENS ROSANNE METAB OLIC PANEL albumin 4.1 g/dL 3.6-5. 1 normal Not Available [address], [address], 02/20/2024 18:11:28 01/10/20 24 02/20/2024 COMPR EHENS ROSANNE METAB OLIC PANEL globulin 2.4 g/dL_ (calc ) 1.9-3. 7 normal Not Available [address], [address], 02/20/2024 18:11:28 01/10/20 24 02/20/2024 COMPR EHENS ROSANNE METAB OLIC PANEL albumin/glob ulin ratio 1.7 (calc ) 1.0-2. 5 normal Not Available [address], [address], 02/20/2024 18:11:28 01/10/20 24 02/20/2024 COMPR EHENS ROSANNE METAB OLIC PANEL bilirubin, total 0.3 mg/dL 0.2-1. 2 normal Not Available [address], [address], 02/20/2024 18:11:28 01/10/20 24 02/20/2024 COMPR EHENS ROSANNE METAB OLIC PANEL alkaline phosphatase 71 U/L 37-153 normal Not Available [facility] [email or web address] [address], [place], [address], 02/20/2024 18:11:28 01/10/20 24 02/20/2024 COMPR EHENS ROSANNE METAB OLIC PANEL AST 15 U/L 10-35 normal Not Available [address] [address] [place], [address], 02/20/2024 18:11:28 01/10/20 24 02/20/2024 COMPR EHENS ROSANNE METAB OLIC PANEL ALT 13 U/L 6-29 normal Not Available [address] [address] [place], [address], 02/20/2024 18:11:28 01/10/20 24 02/20/2024 TSH W/REF YUE TO FT4 TSH w/reflex to FT4 1.56 mIU/L 0.40-4 .50 normal Not Available [address] [address] [place], [address], 02/20/2024 18:11:29 01/10/20 24 02/20/2024 DRUG MONIT OR, PANEL 5, W/CON F, URINE amphetamines TNP TEST NOT PERFO RMED No suita ble speci men recei gallo. Pleas e revie w the test requi remen ts at testd pending sale to [facility] or.q uestd [employer] .com Not Available [address] [address] [place], [address], 02/20/2024 18:11:30 01/10/20 24 02/20/2024 DRUG MONIT OR, PANEL 5, W/CON F, URINE barbiturates TNP TEST NOT PERFO RMED No suita ble speci men recei gallo. Pleas e revie w the test requi remen ts at testd [facility] or[facility].q uestd iagno [employer] .com Not Available [address] [address] [place], [address], 02/20/2024 18:11:30 01/10/20 24 02/20/2024 DRUG MONIT OR, PANEL 5, W/CON F, URINE benzodiazepi jani TNP TEST NOT PERFO RMED No suita ble speci men recei gallo. Pleas e revie w the test requi remen ts at testd pending sale to [facility] ory.q [employer] .YesVideo Not Available [employer] [address] [address] [place], [address], 02/20/2024 18:11:30 01/10/20 24 02/20/2024 DRUG MONIT OR, PANEL 5, W/CON F, URINE cocaine metabolite TNP TEST NOT PERFO RMED No suita ble speci men recei gallo. Pleas e revie w the test requi remen ts at testd pending sale to [facility] or.q [employer] .YesVideo Not Available [address] [address] [place], [address], 02/20/2024 18:11:30 01/10/20 24 02/20/2024 DRUG MONIT OR, PANEL 5, W/CON F, URINE marijuana metabolite TNP TEST NOT PERFO RMED No suita ble speci men recei gallo. Pleas e revie w the test requi remen ts at testd pending sale to [facility] ory.q [employer] .com Not Available [employer] [address] [address] [place], [address], 02/20/2024 18:11:30 01/10/20 24 02/20/2024 DRUG MONIT OR, PANEL 5, W/CON F, URINE methadone metabolite TNP TEST NOT PERFO RMED No suita ble speci men recei gallo. Pleas e revie w the test requi remen ts at testd pending sale to [facility] ory.q ueWellness Corporationd [employer] .com Not Available [employer] [facility] [address] [place], [address], 02/20/2024 18:11:30 01/10/20 24 02/20/2024 DRUG MONIT OR, PANEL 5, W/CON F, URINE opiates TNP TEST NOT PERFO RMED No suita ble speci men recei gallo. Pleas e revie w the test requi remen ts at [facility].q uest [employer] .YesVideo Not Available [facility] [address] [place], [address], 02/20/2024 18:11:30 01/10/20 24 02/20/2024 DRUG MONIT OR, PANEL 5, W/CON F, URINE oxycodone TNP TEST NOT PERFO RMED No suita ble speci men recei gallo. Pleas e revie w the test requi remen ts at [facility].q [employer]d [employer] .YesVideo Not Available [facility] [address] [place], [address], 02/20/2024 18:11:30 01/10/20 24 02/20/2024 DRUG MONIT OR, PANEL 5, W/CON F, URINE creatinine TNP TEST NOT PERFO RMED No suita ble speci men recei gallo. Pleas e revie w the test requi remen ts at [facility].q [employer]d [employer] .YesVideo Not Available [facility] [address] [place], [address], 02/20/2024 18:11:30 01/10/20 24 02/20/2024 DRUG MONIT [...] M-F, 8am to 10pm EST Not Available [address] [address] [address], [place], [address], 02/20/2024 18:11:31 01/11/20 24 01/13/2024 DRUG MONIT OR, PANEL 5, W/CON F, URINE amphetamines NEGATI VE NG/mL <500 Not Available [address] [address] [place], [address], 01/13/2024 22:45:13 01/11/20 24 01/13/2024 DRUG MONIT OR, PANEL 5, W/CON F, URINE barbiturates NEGATI VE NG/mL <300 Not Available [address] [address] [place], [address], 01/13/2024 22:45:13 01/11/20 24 01/13/2024 DRUG MONIT OR, PANEL 5, W/CON F, URINE benzodiazepi jani NEGATI VE NG/mL <100 Not Available [address] [address] [address], [place], [address], 01/13/2024 22:45:13 01/11/20 24 01/13/2024 DRUG MONIT OR, PANEL 5, W/CON F, URINE cocaine metabolite NEGATI VE NG/mL <150 Not Available [address] [address] [place], [address], 01/13/2024 22:45:13 01/11/20 24 01/13/2024 DRUG MONIT OR, PANEL 5, W/CON F, URINE marijuana metabolite NEGATI VE NG/mL <20 Not Available [address] [address] [place], [address], 01/13/2024 22:45:13 01/11/20 24 01/13/2024 DRUG MONIT OR, PANEL 5, W/CON F, URINE methadone metabolite NEGATI VE NG/mL <100 Not Available [address] [address] [place], [address], 01/13/2024 22:45:13 01/11/20 24 01/13/2024 DRUG MONIT OR, PANEL 5, W/CON F, URINE opiates NEGATI VE NG/mL <100 Not Available [address] [address] [place], [address], 01/13/2024 22:45:13 01/11/20 24 01/13/2024 DRUG MONIT OR, PANEL 5, W/CON F, URINE oxycodone NEGATI VE NG/mL <100 Not Available [address] [address] [place], [address], 01/13/2024 22:45:13 01/11/20 24 01/13/2024 DRUG MONIT OR, PANEL 5, W/CON F, URINE creatinine 67.0 mg/dL > or = 20.0 Not Available [address], [address], 01/13/2024 22:45:13 01/11/20 24 01/13/2024 DRUG MONIT OR, PANEL 5, W/CON F, URINE pH 7.3 4.5-9. 0 Not Available [address], [address], 01/13/2024 22:45:13 01/11/20 24 01/13/2024 DRUG MONIT OR, PANEL 5, W/CON F, URINE oxidant NEGATI VE mcg/m L <200 Not Available [address], [address], 01/13/2024 22:45:13 01/11/20 24 01/13/2024 DRUG MONIT [...] M-F, 8am to 10pm EST Not Available [address] [address] [place], [address], 01/13/2024 22:45:15 04/26/1904/27/2024 LIPID PANEL , STAND JOON cholesterol, total 122 mg/dL <200 normal Not Available [facility] [address] [address] [place], [address], 04/27/2024 13:42:28 04/26/19 25 04/27/2024 LIPID PANEL , STAND JOON HDL cholesterol 47 mg/dL > or = 50 low Not Available [facility] [address] [address] [place], [address], 04/27/2024 13:42:28 04/26/19 25 04/27/2024 LIPID PANEL , STAND JOON triglyceride s 100 mg/dL <150 normal Not Available [facility] [facility] [place] [address] [place], [address], 04/27/2024 13:42:28 04/26/19 25 04/27/2024 LIPID PANEL , STAND JOON LDL-choleste rol 56 mg/dL _(honorio c) normal Refer ence range : <100 Santiago able range <100 mg/dL for prima ry preve ntion ; <70 mg/dL for patie nts with CHD or diabe tic patie nts with > or = 2 CHD risk facto rs. LDL-C is now calcu lated using the Norma n-Hop cookie fernandez, which is a valid ated novel rylee villeda accur acy than the Fried zhane equat ion in the estim ation of LDL-C . Norma fernandez SS et al. MARZENA. 2013; 310(1 9): 2061- 2068 (http ://ed ucati on.Qu estDi agnos tics. com/f aq/FA Q164) Not Available [facility] [address], [place], [address], 04/27/2024 13:42:28 04/26/19 25 04/27/2024 LIPID PANEL , STAND JOON chol/HDLC ratio 2.6 (calc ) <5.0 normal Not Available [facility] [address], [place], [address], 04/27/2024 13:42:28 04/26/19 25 04/27/2024 LIPID PANEL , STAND JOON non HDL cholesterol 75 mg/dL _(honorio c) <130 normal For patie nts with diabe carol ann plus 1 major ASCVD risk facto r, treat ing to a non-H DL-C goal of <100 mg/dL (LDL- C of <70 mg/dL ) is consi dered a thera peuti c optio n. Not Available [facility] [address], [place], [address], 04/27/2024 13:42:28 06/22/19 24 09/14/2022 DEXA No observ ation record ed. [email or web address] [facility] [address], [place], [address], 06/29/2023 10:42:34 03/02/19 25 03/01/2024 MRI, hip, w/o contr ast No observ ation record ed. [facility] [address], [place], [address], 03/02/2024 14:47:24 06/02/19 25 05/31/2024 pre opera tive order s* No observ ation record ed. [facility] [address], [place], [address], 06/03/2024 16:58:38 06/09/19 25 06/08/2024 elect vani diogr am, routi ne ECG, 12 leads min; inter preta tion and repor t (PROC ) No observ ation record ed. [facility] [address] [facility] [address], [place], [address], 06/11/2024 10:46:46 06/15/19 25 06/14/2024 arleth can cardi olite stres s test (PROC ) No observ ation record ed. [facility] [address], [place], [address], 06/15/2024 09:05:20 Result Notes None recorded. Problems Name Problem SNOMED Code Status Onset Date Resolution Date Notes Provider Name and Address Organization Details Recorded Time Pain of left hip joint 10200037859 9100 Completed 202004/25/2022 Jose Be MD Attn: Lopez winter,[address] [facility], [place], [address], [place] [facility] 3 16:40:52 Spinal stenosis of lumbar region 25022030 Active 2020 Jose Be MD Attn: Lopez winter,[address] [facility], [place], [address], [place] [facility] 3 15:48:38 Low back pain 195308870 Active 2020 Jose Be MD Attn: Lopez winter,[address] [facility], [place], [address], [place] [facility] 3 15:48:38 Osteoart hritis of left hip joint 52812311490 9108 Completed 202004/25/2022 status post total hip arthropl ast, 2020 Jose Be MD Attn: Lopez g,[address] [facility], [place], [address], [place] [facility] 3 16:43:43 Smoker 07785086 Active 2020 Jose Be MD Attn: Lopez g,[address] [facility], [place], [address], [place] [facility] 3 15:48:38 Long-ter m drug therapy Active 2022 Jose Be MD Attn: Lopez winter,[address] [place], [address], [place] [facility] 3 18:29:24 Menopaus e present 106433914 Active 2022 Jose Be MD Attn: Lopez winter,[address] [place], [address], [place] [facility] 3 15:48:37 Left side sciatica 92659671089 9104 Active 2022 Jose Be MD Attn: Lopez winter,[address] [place], [place], [address] [place] [address], [place] [facility] 3 15:48:37 Mixed anxiety and depressi ve disorder 745002210 Active 2022 Jose Be MD Attn: Lopez winter,[address] [place], [address], [place] [facility] 3 15:48:37 Body mass index 30+ - obesity 016851070 Active 2022 Jose Be MD Attn: Lopez winter,[address] [place], [address], [place] [facility] 3 15:58:07 Allergic rhinitis caused by pollen 13538728 Active 2014 Jose Be MD Attn: Lopez winter,[address] [place], [address], [place] [facility] 3 16:44:23 Gastro-e sophagea l reflux disease with esophagi tis 450795875 Active 2015 Jose Be MD Attn: Lopez winter,[address] [place], [address], [place] [facility] 3 16:46:03 Mucocele of mouth 711484003 Completed 202206/01/2024 CLAUDIA Qureshi Attn: Lopez winter,[address] [facility], [place], [address], [place] [facility] 5 09:35:29 Xerostom ia 14037363 Completed 202206/01/2024 CLAUDIA Qureshi Attn: Lopez winter,[address] [facility], [place], [address], [facility] - [facility] 5 09:35:31 Acute sinusiti s 12569947 Completed 202306/01/2024 CLAUDIA Qureshi Attn: Lopez winter,[address] [facility], [place], [address], [facility] - [facility] 5 09:35:26 Tobacco dependen ce syndrome 32689843 Completed 201406/11/2014 Location : None;Sev erity: Moderate ;Progres s: Stable;A dded By: Nguyễn Herbert;Ad d to Current Problems : YES Jose Be MD Attn: Geetashobha winter,[address] [facility], [place], [address], [place] [facility] 4 16:03:29 Hyperlip idemia 23440146 Active 2012 Jose Be MD Attn: Lopez winter,[address] [facility], [place], [address], [place] [facility] 3 16:48:02 Allergic rhinitis caused by pollen 88548722 Completed 201402/22/2015 Location : None;Sev erity: Moderate ;Progres s: Stable;A dded By: Dawn Johnson;Add to Current Problems : YES Jose Be MD Attn: Lopez winter,[address] [facility], [place], [address], [place] [facility] 3 16:44:23 Benign essentia l hyperten jonathon 9148783 Active 2012 Jose Be MD Attn: Lopez winter,[address] [facility], [place], [address], [facility] 3 16:48:08 Gastro-e sophagea l reflux disease with esophagi tis 548086517 Completed 201501/05/2016 Location : None;Sev erity: Moderate ;Progres s: Stable;A dded By: Dawn Johnson;Add to Current Problems : NO Jose Be MD Attn: Lopez g,[address] [facility], [place], [address], [facility] 3 16:46:03 Generali zed anxiety disorder 89793838 Completed 201201/12/2019 Location : None;Sev erity: Moderate ;Progres s: Stable;A dded By: Dawn Johnson;Add to Current Problems : YES Dawn Johnson [facility], [facility] 9 15:58:50 Problem Notes None recorded. Procedures Surgical History Date Name Laterality Status Provider Name and Address Organization Details Recorded Time 1 total replacement of left hip joint completed Jose Be MD Attn: Accounting,[address] [facility], [place], [address], [facility] 04/25/2022 15:50:39 9 Date of Last Pap Smear completed Ree Sanchez MA [facility] 06/29/2021 16:49:52 Imaging Results Imaging Date Name Status LastModified by Organization Details LastModified Time 09/14/2022 DEXA completed [address] [facility] [address], [place], [address], 06/29/2023 10:42:34 03/01/2024 MRI, hip, w/o contrast completed [facility] [address], [place], [address], 03/02/2024 14:47:24 05/31/2024 pre operative orders* completed [facility] [address], [place], [address], 06/03/2024 16:58:38 06/08/2024 electrocardiogram, routine ECG, 12 leads min; interpretation and report (PROC) completed [address], [place], [address], 06/11/2024 10:46:46 06/14/2024 lexiscan cardiolite stress test (PROC) completed [address], [place], [address], 06/15/2024 09:05:20 Procedure Notes None recorded. Medical Equipment None Reported. Allergies Allergen ID Allergen Name Allergen Category Reaction Reaction Severity Criticality Documentation Date Start Date Code Code System Note Provider Name and Address Organization Details Recorded Time 24443 codeine sulfate medicatio n nausea moderate Not available 03/03/20162012 02994 RxNorm React ion: nause a;Sev erity : [...] for 10 days. 07/11 completed RxNor m: 88962 4;All ow Subst ituti on: True Not [...] by mouth daily 11/26 completed RxNor m: 51529 1;All ow Subst ituti on: True Not [...] Updated DateTime 4 162.56 cm 36 kg/m2 81934.4 g 97.5 [degF] 97 % 97 % 109 /min 123 mm[Hg] 80 mm[Hg] Bushra Lew [place] - [facility] 4 15:26:43 Date Recorded Body height Body mass index (BMI) Body weight Oxygen saturation Oxygen saturation in Arterial blood by Pulse oximetry Body temperature Heart rate Systolic blood pressure Diastolic blood pressure Provider Name and Address Organization Details Last Updated DateTime 4 162.56 cm 36.3 kg/m2 09598.3 9 g 95 % 95 % 97.8 [degF] 92 /min 138 mm[Hg] 82 mm[Hg] Flaquita Alcaraz MA [facility] 4 14:22:06 Date Recorded Body height Body mass index (BMI) Body weight Oxygen saturation Oxygen saturation in Arterial blood by Pulse oximetry Heart rate Body temperature Systolic blood pressure Diastolic blood pressure Provider Name and Address Organization Details Last Updated DateTime 5 162.56 cm 35.1 kg/m2 12406.6 4 g 96 % 96 % 108 /min 98 [degF] 134 mm[Hg] 83 mm[Hg] Flaquita Alcaraz MA [facility] 5 10:11:17 Date Recorded Body height Body mass index (BMI) Body weight Body temperature Oxygen saturation Oxygen saturation in Arterial blood by Pulse oximetry Heart rate Systolic blood pressure Diastolic blood pressure Provider Name and Address Organization Details Last Updated DateTime 5 162.56 cm 33.6 kg/m2 54701.1 g 97.5 [degF] 100 % 100 % 80 /min 117 mm[Hg] 84 mm[Hg] Francisco J Del Cid [place] - [facility] 5 11:49:43 Date Recorded Body height Body mass index (BMI) Body weight Heart rate Oxygen saturation Oxygen saturation in Arterial blood by Pulse oximetry Systolic blood pressure Diastolic blood pressure Provider Name and Address Organization Details Last Updated DateTime 5 162.56 cm 33.3 kg/m2 12028.6 4 g 92 /min 99 % 99 % 128 mm[Hg] 82 mm[Hg] Cecily Sweet [place] [facility] 09:19:54 Social History Question Answer Notes LastModified by Organizat ion Details LastModified Time Tobacco Smoking Status Former Smoker none in 27 days Francisco J Del Cid [place], [place] - [facility] 06/01/2024 11:43:23 Do You Have An [...] Anxious, Or Unable To Sleep At Night)? [id number] Information not available 06/29/2021 Do You Use [...] Immunizations Vaccine Type Date Status Note Provider D[place] and Address Organization Details Recorded Time COVID-19 vaccine, vector-nr, rS-Ad26, PF, 0.5 mL 1 completed AGUSTIN Qureshi-C Attn: Accounting[address] [place], [place], [address] [place] [address] [place] [facility] 01/09/2024 21:27:02 COVID-19, mRNA, LNP-S, PF, 30 mcg/0.3 mL dose 1 completed AGUSTIN Qureshi-C Attn: Accounting[address] [place], [place], [address] [place] [address], [place] [facility] 01/09/2024 21:27:02 COVID-19, mRNA, LNP-S, bivalent, PF, 30 mcg/0.3 mL dose 2 completed AGUSTIN Qureshi-C Attn: Accounting,[address] [place], [place], [address] [place] [address], [place] [facility] 01/09/2024 21:27:02 Influenza, split virus, quadrivalent, preservative 8 completed Not Available [facility] 03/17/2019 02:49:49 Tdap 5 completed Not Available [facility] 03/31/2019 02:11:37 Influenza, split virus, quadrivalent, preservative 5 completed Not Available [facility] 03/31/2019 02:11:37 Td (adult), 2 Lf tetanus toxoid, preservative free, adsorbed 6 completed CLAUDIA Qureshi Attn: Accounting,[address] [facility], [place], [address], [facility] - [facility] 01/09/2024 21:27:02 DT (pediatric) 5 completed Not Available [facility] 03/03/2016 05:18:15 MMR 1 completed Not Available [facility] 03/03/2016 05:18:15 OPV 3 completed Not Available [facility] 03/03/2016 05:18:16 Influenza, split virus, trivalent, PF 4 completed MARCIN [place], [place] 01/10/2024 15:02:54 Past Encounters Encounter ID Performer Location Encounter Start Date Encounter Closed Date Diagnosis/Indication Diagnosis SNOMED-CT Code Diagnosis ICD10 Code Diagnosis Note [id number] Coty Huynh MA [facility] [address] [place] [address] 08/19/2016 11:46:08 08/19/2016 15:33:07 Acute maxillary sinusitis 94964497 J01.00 Low back pain 491111374 M54.5 Chest wall pain 79598271 6 R07.89 Mixed hyperlipidemia 267 016799 E78.2 Cigarette smoker 8546206 7 F17.328 [id number] [facility] [address] [place] [address] 01/25/2017 14:07:34 01/25/2017 17:09:44 Benign essential hypertension 6367497 I10 Generalize d anxiety disorder 30703959 F41.1 Low back pain 670824954 M54.5 Allergic r hinitis caused by pollen 23078286 J30.1 [id number] [facility] [address] [place] [address] 04/15/2017 12:30:40 04/15/2017 15:58:58 Acute maxillary sinusitis 17306467 J01.00 [id number] Reva ambrocio [place] [id number] [place] [address] 08/17/2017 15:11:08 08/18/2017 10:39:45 Dysuria 35707262 R30.0 Essential hypertension 09212077 I10 Generalize d anxiety disorder 93826702 F41.1 Gastroesop hageal reflux disease without esophagitis 975255302 K21.9 Change in skin lesion 39 8855591 L98.9 Low back pain 537681026 M54.5 [id number] [place] [id number] [place] [address] 12/14/2017 12:47:21 12/16/2017 13:59:05 Seasonal allergic rhinitis 670365529 J30.2 Administra tion of influenza vaccine 51043810 Z23 Colon canc er screening declined 6860758732 9109 Z53.20 will discuss at next visit [id number] CLAUDIA Pringle [place] [id number] [place] [address] 06/21/2018 14:56:33 06/21/2018 17:08:40 Lumbago with sciatica 606204612 M54.42 Trochanter ic bursitis of left hip 9735748841 94309 M70.62 [id number] [facility] [address] [place] [address] 07/27/2018 16:03:23 07/28/2018 08:42:23 Lumbago with sciatica 835123217 M54.42 Gynecologi c examination 93130857 Z01.419 Essential hypertension 27298634 I10 Mixed anxi ety and depressive disorder 134066366 F41.8 Gastroesop hageal reflux disease without esophagitis 687524264 K21.9 Allergic r hinitis caused by pollen 02636024 J30.1 [id number] [facility] [address] [place] [address] 01/12/2019 15:18:00 01/15/2019 09:10:59 Seasonal allergic rhinitis 084301505 J30.2 Mixed anxi ety and depressive disorder 926360396 F41.8 Intentiona l weight loss 979178332 R63.8 18 pounds in 6 mos [id number] [facility] [address] [place] [address] 01/22/2019 17:02:20 01/23/2019 09:16:35 Benign essential hypertension 1886999 I10 Hyperlipidemia 55059157 E78.5 Mixed anxi ety and depressive disorder 284028503 F41.8 cont same dose for now [id number] [facility] [address] [place] [address] 05/07/2019 16:21:27 05/08/2019 11:26:12 Mixed hyperlipidemia 411633528 E78.2 Mixed anxi ety and depressive disorder 038685042 F41.8 cont same dose for now Gastroesop hageal reflux disease without esophagitis 806648158 K21.9 Essential hypertension 16818684 I10 Benign ess ential hypertension 6318678 I10 Lumbago with sciatica 20 7657199 M54.42 Allergic r hinitis caused by pollen 25695193 J30.1 [id number] [facility] [address] [place] [address] 11/19/2019 14:57:45 11/19/2019 17:24:08 Unintentional weight gain 0452781998 22725 R63.5 25 pounds Lumbar spondylosis 70993 0009 M47.896 is seeing chiropract or for treatment Recurrent falls 00220700 2 R29.6 fell at work parking lot x 2 [id number] HERMELINDO Bailey [facility] [address] [place] [address] 12/17/2019 13:04:12 12/17/2019 17:00:17 Seasonal allergic rhinitis 538628919 J30.2 continue flonase and singulair regularly, watch for colored purulent drainage, SOB, cough, fever, etc. If any of those happen she is to stay home until well and recommend COVID testing. She swears this is just her horrible seasonal allergies [id number] Dawnartur Johnson [facility] [address] [place] [address] 05/07/2020 13:25:22 05/07/2020 16:05:26 Low back pain 536447061 M54.5 Arthritis of left hip 10 28585625 518261 M13.852 Benign ess ential hypertension 0032891 I10 [id number] CLAUDIA Pringle [facility] [address] [place] [address] 08/19/2020 15:26:41 08/20/2020 14:24:25 Essential hypertension 65425376 I10 at goal Pain of le ft hip joint 9277870541 74934 M25.552 scheduled for left hip arthoplast y Pre-surger y evaluation 724514531 Z01.818 cleared for surgery Hypokalemia 90863910 E87 .6 potassium 3.3 on scarlett and HCTZ. 10 meq of potassium added. will check BMP on Tuesday and then follow up with BMP 1-2 weeks after surgery.Dr Johnson to consider decresing HCTZ as she is on 50mg an currently BP is under good control Smoker 43557606 F17.595 [id number] Dawn Johnson [facility] [address] [place] [address] 04/14/2021 09:34:38 04/14/2021 17:13:42 Dysuria 97915159 R30.0 no antibiotic indicated [id number] HERMELINDO Bailey [facility] [address] [place] [address] 05/13/2021 14:21:57 05/14/2021 10:29:30 Abdominal pain 93588045 R10.9 likely IBS type picture. Encouraged colonoscop y, she will do after . Will consider CT abd sooner if symptoms worsen or persist before the colonoscop y or if labs indicate the need. Anemia fol lowing acute postoperative blood loss 8535057319 6293278 D62 if remains, will get stool for FIIT before colonoscop y scheduled Stomach cramps 06459766 R10.9 food avoidance discussed like excess caffeine, grease, spice, acid, etc. [id number] [facility] [address] [place] [address] 06/29/2021 15:57:41 06/29/2021 17:55:44 Gynecologic examination 35197348 Z01.419 Screening for malignant neoplasm of colon 459707525 Z12.11 patient has a referral for colonoscop y already with Dr. Connell and promised to do Cigarette smoker 7333522 7 F17.992 [id number] [facility] [address] [place] [address] 10/19/2021 15:29:16 10/19/2021 17:24:21 History of abnormal cervical Papanicolaou smear 894194031 Z87.42 Hyperlipidemia 34042871 E78.5 Benign ess ential hypertension 5246143 I10 Allergic rhinitis 697934 04 J30.9 [id number] [facility] [address] [place] [address] 11/16/2021 11:43:14 11/16/2021 18:03:13 Low back pain 116086785 M54.50 if patient calls back -- refer for CT abd/pelvis to r/o problems Left side sciatica 97382 65357 45932 M54.32 Body mass index 30+ - obesity 423484773 Z68.31 Smoker 02901210 F17.535 [id number] Jose Be MD [facility] [address] [place] [address] 04/21/2022 16:27:33 04/26/2022 10:38:02 Benign essential hypertension 0620743 I10 # HTN- {{Controll ed* Nearly controlled Suboptima lly controlled Uncontrol led}}- Continue current medication s. No change in management - Encouraged routine blood pressure checksat home, targetless than 140/90- DiscussedD MILI diet(https ://www.nhl bi.nih.gov /files/doc s/public/h eart/dash_ brief.pdf) anddietary sodium restrictio ns- Continue/I ncrease dietary efforts and physical activity Hyperlipidemia 41844882 E78.5 # Hyperlipid emia- Last lipid panel {{< >*}} 1 year ago- ACC/AHA CV risk {{< >*}} 7.5%- Repeat {{today at earliest convenienc e* prior to next visit in one year}}- Continue with current management without changes.- Focus on a dietlow in saturated fats(https ://www.[facility].or g/educatio n/guidelin es-for-a-l ow-cholest dayo-low-s aturated-f at-diet),b lood pressure control,sm oking cessation( http://ezequiel tyes.org/) anddaily exerciseto reduce your risk ofheart disease and stroke. Left side sciatica 37148 67734 77534 M54.32 - ongoing symptoms, severe, debilitati ng- previously seen by orthopedic back surgeon, now out of area- reviewed options: pain management , with possible injections , neurosurge ry/orthope dic back surgery - trial of skeletal muscle relaxant for symptom-re lief, along with ongoing meloxicam Mixed anxi ety and depressive disorder 329317646 F41.8 # Anxiety / Depression Increased with recent issues/fam ayaan stressorsC ontinue meds - patient advised we can adjust/inc rease medication s if necessary Long-term drug therapy 130146977 Z79.899 Checking routine labwork for ongoing long-term medication use. Screening mammography of bilateral breasts 8181602915 27473 Z12.31 Menopause present 566202 006 N95.1 Z13.820 Screening for malignant neoplasm of colon 507500036 Z12.11 Body mass index 30+ - obesity 848720279 Z68.33 Focus on a healthy diet, avoid added salt, and hfoqbw8416 calories or less daily. Exercise as tolerated, targeting3 0-60 minutes of exercise daily, at least 5 days per week Smoker 20757216 F17.200 precontemp lative - readdress at follow-up Allergic r hinitis caused by pollen 29433072 J30.1 # Allergic rhinitisMo derate persistent symptoms.C ontinue with intranasal corticoste roid, oral antihistam ine, and allergen avoidance. Continue leukotrien e inhibitor. Gastro-eso phageal reflux disease with esophagitis 223818557 K21.00 # GERD {{Continue current treatment with shelter proton pump inhibitor, low-dose* Continue current treatment with shelter proton pump inhibitor, high-dose Continue current treatment with shelter H2 molina Em piric low-dose proton pump inhibitor treatment x 12 weeks and re-evaluat e}} No suspected reflux complicati ons (Rascon/s tricture) Lifestyle modificati on: weight loss, avoid meals 2-3 hours before bedtime Consider limiting or eliminatin g food triggers:c hocolate, caffeine, citrus fruits/jui francis, alcohol, acid/spicy food.Smoki ng cessation if indicatedY early vitamin B12 and folic acid levels for extermination supervisor proton pump inhibitor use [id number] Jose Be MD [facility] [address] [facility] [place] [address] 11/22/2022 11:57:02 11/22/2022 17:35:27 Benign essential hypertension 6058499 I10 # HTN- {{Controll ed* Nearly controlled Suboptima lly controlled Uncontrol led}}- Continue current medication s. No change in management - Encouraged routine blood pressure checksat home, targetless than 140/90- DiscussedD MILI diet(https ://www.nhl bi.nih.gov /files/doc s/public/h eart/dash_ brief.pdf) anddietary sodium restrictio ns- Continue/I ncrease dietary efforts and physical activity Hyperlipidemia 90281184 E78.5 # Hyperlipid emia- Last lipid panel {{<* >}} 1 year ago- ACC/AHA CV risk {{< >*}} 7.5%- Repeat {{today at earliest convenienc e prior to next visit* in one year}}- Continue with current management without changes.- Focus on a dietlow in saturated fats(https ://www.[facility].or g/educatio n/guidelin es-for-a-l ow-cholest dayo-low-s aturated-f at-diet),b lood pressure control,sm oking cessation( http://ezequiel tyes.org/) anddaily exerciseto reduce your risk ofheart disease and stroke. Left side sciatica 84191 37617 33234 M54.32 - following with neurosurge gabriela farrell onal pain management - cyclobenza mary - increase dosing it tolerates- await injection therapy Mixed anxi ety and depressive disorder 964054924 F41.8 # Anxiety / Depression Increased with recent issues/fam ayaan stressorsC ontinue meds - patient advised we can adjust/inc rease medication s if necessary Gastro-eso phageal reflux disease with esophagitis 930159108 K21.00 # GERD{{Cont inue current treatment with shelter proton pump inhibitor, low-dose* Continue current treatment with extermination supervisor proton pump inhibitor, high-dose Continue current treatment with extermination supervisor H2 molina Em piric low-dose proton pump inhibitor treatment x 12 weeks and re-evaluat e}}No suspected reflux complicati ons (Rascon/s tricture)L ifestyle modificati on: weight loss, avoid meals 2-3 hours before bedtimeCon workers' compensation hearings officer limiting or eliminatin g food triggers:c hocolate, caffeine, citrus fruits/jui rfancis, alcohol, acid/spicy food.Smoki ng cessation if indicatedY early vitamin B12 and folic acid levels for extermination supervisor proton pump inhibitor use Allergic r hinitis caused by pollen [id number] J30.1 # Allergic rhinitisMo derate persistent symptoms.C ontinue with intranasal corticoste roid, oral antihistam ine, and allergen avoidance. Continue leukotrien e inhibitor. Smoker [id number] F17.200 precontemp lative - readdress at follow-up Body mass index 30+ - obesity 445163422 Z68.33 Focus on a healthy diet, avoid added salt, and [id number] calories or less daily. Exercise as tolerated, targeting3 0-60 minutes of exercise daily, at least 5 days per week Long-term drug therapy [id number] Z79.899 Checking routine labwork for ongoing long-term medication use. Mucocele of mouth 027587 008 K13.79 - consultati on with otolaryngo logy Xerostomia 45552834 R68. 2 - encouraged smoking cessation, increased gum chewing, hard candies- try biotene or similar [id number] Jose Be MD [facility] [address] [place] [address] 06/21/2023 14:59:23 06/22/2023 09:44:23 Hyperlipidemia 19018084 E78.5 # Hyperlipid emia Last lipid panel ~ 1 year ago ACC/AHA CV risk {{< >*}} 7.5% (8.8%) Repeat {{today at earliest convenienc e* prior to next visit in one year}} Continue with current management without changes. Focus on a dietlow in saturated fats(https ://www.[facility].or g/educatio n/guidelin es-for-a-l ow-cholest dayo-low-s aturated-f at-diet),b lood pressure control,sm oking cessation( http://ezequiel tyes.org/) anddaily exerciseto reduce your risk ofheart disease and stroke. Benign ess ential hypertension 5425255 I10 # HTN {{Controll ed* Nearly controlled Suboptima lly controlled Uncontrol led}} Continue current medication s. No change in management Encouraged routine blood pressure checksat home, targetless than 140/90 DiscussedD MILI diet(https ://www.nhl bi.nih.gov /files/doc s/public/h eart/dash_ brief.pdf) anddietary sodium restrictio ns Continue/I ncrease dietary efforts and physical activity Left side sciatica 37581 [id number] 21464 M54.32 following with neurosurge ry, interventi onal pain management cyclobenza mary - primary use at bedtime with acetaminop hen for improved sleepinter ventional pain management injection therapy w/ some relief Mixed anxi ety and depressive disorder 867124661 F41.8 # Anxiety{{/ Depression * /Panic attacks [...] Recommende d Cognitive Behavioral Therapy (https://w bobo.psychol ogkwasi.c om/us/ther apy-types/ cognitive- behavioral -therapy) - Encouraged relaxation techniques (https://w bobo.[facility]/jorgeMixCommerceatry/cdr o/learning -- Communitie s/wellness /stress/st ress_hando uts/) - Stress management resources (https://w Departing.[facility]/[employer]/cdr o/learning -- Communitie s/wellness /stress/st ress_resou rces/) - Self-care handouts (https://yancy mann.[facility].e stephani/self-ca re-handout s/) - Recommende d mindfulnes s meditation and exercise. - Sleep hygiene (https://o [facility] .[facility].edu/s leep-hygie ne/) Gastro-eso phageal reflux disease with esophagitis 204352470 K21.00 # GERDPatien t with breakthrou gh symptoms despite hi dosing of PPI. 30 day trial of double-dos ed high-dose proton pump inhibitorN o suspected reflux complicati ons (Rascon/s tricture)L ifestyle modificati on: weight loss, avoid meals 2-3 hours before bedtimeCon workers' compensation hearings officer limiting or eliminatin g food triggers:c hocolate, caffeine, citrus fruits/jui francis, alcohol, acid/spicy food.Smoki ng cessation if indicatedY early vitamin B12 and folic acid levels for shelter proton pump inhibitor use Allergic r hinitis caused by pollen 17194580 J30.1 # Allergic rhinitisMo derate persistent symptoms.C ontinue with intranasal corticoste roid, oral antihistam ine, and allergen avoidance. Continue leukotrien e inhibitor. Smoker 42379896 F17.200 reports cutting down to 5 cigs/day - readdress at follow-up Body mass index 30+ - obesity 522134583 Z68.33 Focus on a healthy diet, avoid added salt, and qisurk2329 calories or less daily. Exercise as tolerated, targeting3 0-60 minutes of exercise daily, at least 5 days per week Long-term drug therapy 801878746 Z79.899 Checking routine labwork for ongoing long-term medication use. Acute sinusitis 93682844 J01.90 # Sinusitis, acute, bacterialS tarted amox/clav. oral corticoste roidsDecon gestants, intranasal corticoste roid and saline.Con tinue supportive therapy. [id number] Montserrat Lujan, SPOT CHECKER-C [facility] [address] [place] [address] 01/10/2024 14:00:30 01/13/2024 15:40:18 Benign essential hypertension 4524230 I10 -Controlle d on current therapy. -Goals: [...] months Mixed anxi ety and depressive disorder 355534591 F41.8 -pt PHQ elevated because of her pain and she has been out of her pregabalin for 1 week. She feel much better when she is taking it. She likes her current anxiety/de pression medication regimen and would like to continue. Hyperlipidemia 67722758 E78.5 -Will repeat lipid panel today, increased atorvastat in at last visit 6 months ago.-Will adjust if needed Gastroesop hageal reflux disease without esophagitis 232649018 K21.9 -Recommend lifestyle modificati ons:-[place] te the head of the bed to reduce nocturnal reflux-Fabien id large meals, spicy or acidic foods, caffeine, alcohol, and tobacco-En courage weight loss if applicable -Suggest eating smaller, more frequent meals-Prov esha education on GERD, including triggers, lifestyle modificati ons, and the chronic nature of the condition. Smoker 77134905 F17.200 -Discussed with pt to quit smoking, says she has cut back to 5/day. She will consider cessation after she gets her back pain under control. Obesity 415651498 E66.9 1. Restrict Caloric Intake: Instead of [...] 5. Increase Exertion within Daily Activities : [phone] Steps/day. Avoid Elevators, escalators at public places. Increase steps in parking lots!. Screening for malignant neoplasm of colon 325398249 Z12.11 -Pt did not complete previous cologuard. Agreed to have another one sent to home to complete. Chronic back pain 528955 002 G89.29 -Pt was seeing pain management who was refilling medication but they discharged her back to ortho.-Edwin l prescribe pregabalin until pt gets in to see ortho.-rel ieves pain from 12/07 to 04/09.-cont ract signs and UDS given. Administra tion of influenza vaccine 31988580 Z23 [id number] AGUSTIN Qureshi-Jose [facility] [address] [facility] [place] [address] 04/26/2024 09:57:51 04/27/2024 11:21:35 Benign essential hypertension 1468804 I10 -Controlle d on current therapy.-G oals: BP < 140/90 per JNC8, prevent CV and renal comorbidit ies.-Shoadwoa florez notify office for BP less than 90/60.-Meg stephensonin a low sodium (less than 2000mg) diet and encouraged at least 30-45 minutes of aerobic activity most days of the week-Healt hy weight-Enc ouraged smoking cessation- pt is quitting on Tuesday for upcoming surgery.-f /u 6 months Left side sciatica 08771 57218 90032 M54.32 -only takes in PM at bedtime. Chronic back pain 287952 002 G89.29 -UDS given at last appt, clear-take s in AM and PM; hopefully with surgery will not need it after her recovery is over. Ortho aware of pregabalin and flexeril per consult note. Pain in ri ght hip joint [id number] 07204 M25.551 having right hip replaced on June 19 with [facility]-will back pre-op appt when she leaves today Hyperlipidemia 76052284 E78.5 -repeating lipid panel today, pt was not fasting with lipid panel at her last visit. [id number] Montserrat Lujan, SPOT CHECKER-C [facility] [address] [facility] [place] [address] 06/01/2024 11:30:42 06/04/2024 10:29:21 Pre-surgery evaluation [id number] Z01.818 -requestin g labs and EKG from [facility]. Once back I will look over and sign pre-op paperwork if all clear. [id number] Robin Hoang MD [facility] [place] [facility] [address] [facility] [place] [address] 06/11/2024 09:09:55 06/12/2024 16:03:39 Electrocardiogram abnormal 083912788 R94.31 Pre-surger y evaluation 528196951 Z01.818 Obesity 694348168 E66.9 Ex-smoker 7209177 Z87.89 1 Health Concerns Section Related Observation LastModified by Organization Detai ls LastModified Time None Recorded Concern Status LastModified by Organization Details LastModified Time None Recorded Advance Directives Directive N: Payers Encounter Date Sequence Insurance Name Policy Number Policy Lane Covered Member ID Lane Member ID Guarantor Name 06/21/2023 1 [employer] [address] L[place]mi [place] [id number] 1 [id number] Laxmi [place] 01/10/2024 1 [employer] [address] [employer] [place]mi [place] [id number] 1 [id number] 01 Laxmi E [place] 04/26/2024 1 [employer] [address] [employer] Laxmi [place] [id number] 1 [id number] 01 Laxmi E [place] 06/01/2024 1 [employer] [address] [employer] Laxmi [place] [id number] 1 [id number] 01 Laxmi E [place] 06/11/2024 1 [employer] [address] [employer] [address] [employer] Laxmi E [place] [id number] 1 [id number] 01 Laxmi E [place] Notes Date Note Type Note Provider Name [...] other chronic conditions Last routine Follow-up visit: 40Vdh13Mopo labwork: 96Qdg63 Patient reports consistent use of medications, without side effects or intolerances. Current concerns:congestedears cloggedheadacheno sore throat1 week of symptoms- Using djqu-ebb-yuuzphe meds with minimal relief. Health maintenance:Immunizations due: COVID booster, vzv, RSVColorectal cancer screening:did not complete cologuard - patient awareWell-woman exam: 10/19Mammography: 85Xph25OIYP:completed - not in our records - AndersonLDCT: [...] No complaint}} of heartburn/regurgitation on {{no medication ppol-rij-irivqhp antacids H2 molina proton pump inhibitor high-dose proton pump inhibitor*}} {{Denies* Reports}} cough, shortness of breath, sore throat, changes of taste {{+ No*}} dysphagia {{+ No*}} chest pain Seasonal allergic rhinitisSymptoms controlled with montelukast, fluticasone nasal spray Nicotine dependenceprecontemplative, has quit previously, currently at 5 cigs/day -It Portfolio Manager/Nursing note reviewed.- Jose Be MD Attn: Accounting,[address] [place], [address], [facility] 06/21/2023 19:41:34 4 text/html Anxiety/DepressionReported bypatient.Quality:symptoms same [...] is walking. CLAUDIA Qureshi Attn: Accounting[address] [place], [address], [facility] 01/11/2024 10:24:19 5 text/html Back PainReported bypatient.Location:pain radiating to the buttocks;pain radiating to the legs Quality:sharp Severity:worsening;severe (8-10) Duration:chronic Context:prior back problems; used medications for back pain Alleviating Factors:laying down Aggravating Factors:standing, walking Associated Symptoms:no fever; no weak limbs; no numbness of the legs/feet; no tingling; no incontinence;shortness of breath(when she is in a lot of pain) CLAUDIA Qureshi Attn: Accounting[address] [place], [address], [facility] 04/26/2024 11:37:54 5 text/html Ashley is here today for pre-op evaluation. She is having a right hip replacement. She had her EKG and blood work done yesterday at [facility]. She has not had a cigarette in 30 days and has been on weight watchers diet to keep her weight under control. CLAUDIA Qureshi Attn: Accounting[address] [place], [address], [facility] 06/01/2024 12:31:26 5 text/html 63-day-old female who [...] low voltage in pericardial leads otherwise unremarkable. Labs04/26/cholesterol 122, HDL 47, triglycerides 100, LDL 5611/24glucose 88, BUN 13, creatinine 0.81, eGFR 82, [...] or scar. Robin Hoang MD Attn: Accounting,[address] [place] [address], [address], [place] - [facility] 06/11/2024 10:02:54 OBGyn Episode No OBEpisode recorded.
[2024-06-19] MEDS: LACTATED RINGERS 1,000 ML 30 ML IV CONT ×2 (06:30→10:49)
[2024-06-19] MEDS: ACETAMINOPHEN 500 MG TABLET 1000 MG PO (06:35)
[2024-06-19] MEDS: VANCOMYCIN 1,250 MG/NS 250 ML 1,250 MG/250 ML BAG 166.67 MG IVPB (06:41)
[2024-06-19] MEDS: TRANEXAMIC ACID 1,000MG/ISO100 1,000 MG/100 ML BAG 200 MG IVPB (06:47)
--- NOTE | 2024-06-19 06:59 | WPDHPUPDATE1 ---
History and Physical Update Update Date/Time: 06/19/24 06:59 History and Physical has been reviewed, including an updated exam of the patient. There are NO changes in the patient's condition. Risks, benefits, and alternatives have been discussed and questions answered. Patient agrees to proceed with procedure.
--- NOTE | 2024-06-19 07:08 | P.PNAN_ITS ---
Anes - Initial Pre Proc Eval Procedure: Operation Date: 06/19/24 07:30 Proposed Procedures p Right Total Hip Arthroplasty Direct Anterior Approach - Brent Vasquez MD Date/Time: 06/19/24 07:08 Surgeon: Brent Vasquez MD Pre Op Diagnosis: oa right hip Patient Data Age: 63 Gender: F Height: 1.61 m Weight: 87.4 kg Last Vital Signs Temp 97.1 F L 05/31/24 08:18 Pulse 79 05/31/24 08:18 Resp 16 05/31/24 08:18 BP 116/77 05/31/24 08:18 Pulse Ox 99 05/31/24 08:18 O2 Del Method Room Air 05/31/24 08:18 Allergies Allergy/AdvReac Type Severity Reaction Status Date / Time codeine AdvReac Mild Nausea and Verified 06/19/24 06:12 Vomiting Home Medications ?Medication ?Instructions ?Recorded ?Confirmed ?Type acetaminophen 500 mg capsule 1,000 mg PO .HS 02/06/24 06/12/24 History ascorbic acid 1,000 1 ea PO DAILY 02/06/24 06/19/24 History qm-evhqnchrnfay-cplgtqxa powder effervescent pack (Emergen-C) atorvastatin 20 mg tablet 20 mg PO QHS 02/06/24 06/19/24 History bupropion HCl 150 mg 24 hr tablet, 150 mg PO QAM 02/06/24 06/19/24 History extended release calcium carbonate (Calcium 600) 600 mg PO DAILY 02/06/24 06/19/24 History cholecalciferol (vitamin D3) 125 125 mcg PO DAILY 02/06/24 06/19/24 History mcg (5,000 unit) capsule cyclobenzaprine 10 mg tablet 10 mg PO .HS 02/06/24 06/19/24 History fluticasone propionate 50 1 spray intranasal DAILY 02/06/24 06/19/24 History mcg/actuation nasal spray,suspension (Allergy Relief (fluticasone)) hydrochlorothiazide 25 mg tablet 50 mg PO QAM 02/06/24 06/19/24 History melatonin 10 mg chewable tablet 20 mg PO HS 02/06/24 06/12/24 History montelukast 10 mg tablet 10 mg PO DAILY 02/06/24 06/19/24 History omeprazole 40 mg capsule,delayed 40 mg PO BID 02/06/24 06/19/24 History release pregabalin 50 mg capsule 50 mg PO BID 02/06/24 06/19/24 History psyllium husk 0.4 gram capsule 0.4 g PO DAILY 02/06/24 06/19/24 History (Daily Fiber) sertraline 50 mg tablet 50 mg PO DAILY 02/06/24 06/19/24 History cranberry extract 425 mg capsule 4,200 mg PO DAILY 05/31/24 06/19/24 History lisinopril 40 mg tablet 40 mg PO HS 05/31/24 06/19/24 History Laboratory Tests 06/19/24 06:31 Blood Type Pending Antibody Screen Pending Patient hx anesthesia problems: none Family hx anesthesia problems: none Results Review: All pre-operative results and documents have been reviewed as part of the pre- operative evaluation. [facility] Past Medical History Medical History Arthritis GERD (gastroesophageal reflux disease) Anxiety Surgical History Surgical History History of hip replacement 2020 Left Hip Family History Family History Mother Hypertension Social History Social History (Updated 06/06/24 @ 15:36 by Sultana Barron CMA) Smoking packs per day: 0.5 Smoking cigarettes per day: 10.0 Years smoked: 25 Smoking pack-years: 12.50 Smoking status: Former smoker Tobacco type: cigarettes Smoking end date: 05/06/24 Additional smoking assessment comments: pt states that she has not smoked in 10 days Alcohol intake: never Substance use: never Current Housing: Decline to Answer Concerned About Future Housing: Decline to Answer Difficulty Paying Gas/Electric Bills: Decline to Answer Difficulty Paying for Meds: Decline to Answer Currently Unemployed: Decline to Answer Education: Decline to Answer Difficulty w/ Childcare or Family Care: Decline to Answer Living arrangements: with family Additional living arrangements comments: HUSB Spiritual care concerns: No Anes - Eval Final PreProcedure Day of Procedure 06/19/24 07:08 Patient weight: obese Heart: regular rate and rhythm Lungs: clear to auscultation Airway: Mallampati scale class III Neurological: alert and oriented Last oral intake: >/= 8 hours ASA classification: III Emergent: no Anesthetic plan: proceed Anesthesia type and monitoring: general ETT and standard monitoring Results Review: All pre-operative results and documents have been reviewed as part of the pre- operative evaluation. Informed Consent: The patient's anesthetic plan and its attendant risks and benefits were di scussed with the patient/family/POA. Questions were solicited and answers provided to the satisfaction of the patient/family/POA.
[2024-06-19] MEDS: ceFAZolin 2 GM/D5W 50 ML 2 GM/50 ML BAG IVPB ×3 (07:27→23:59)
[2024-06-19] MEDS: SODIUM CHLORIDE 0.9% IV 37.7 ML, MORPHINE SULFATE INJ (*CRX) 2 MG, ROPivacaine HCL 1% 2... INFILTRATE (08:16)
[2024-06-19] MEDS: ceFAZolin SODIUM 1 GM VIAL 3 GM (08:17)
[2024-06-19] MEDS: ceFAZolin SODIUM 1 GM VIAL 2 GM IV PUSH (10:21)
[2024-06-19] MEDS: KETOROLAC 15 MG/ML VIAL (*BKC) IV PUSH ×3 (10:27→17:00)
[2024-06-19] MEDS: TRANEXAMIC ACID 1,000 MG/10 ML AMPUL 1000 MG IV PUSH (10:27)
--- NOTE | 2024-06-19 10:47 | P.OP_ITS ---
Procedure Note - Detailed Date of Procedure 06/19/24 Pre-op Diagnosis oa right hip Post-op Diagnosis Same Procedure Performed Right total hip arthroplasty direct anterior approach Surgeon Brent Vasquez MD Anatomy And Physiology Instructor Jude Garcia Anesthesia General Description of Procedure Patient was brought to the operating room and general anesthesia was administered. She received 2 g of Ancef weight based vancomycin 1 g of TXA preoperatively. Padding was placed on the feet in the boots applied the patient transferred to the OSI Bovey table. SCDs were applied to the calves and running during the procedure. The right hip prepped draped usual fashion. 10 cm longitudinal incision was made starting from 2 cm lateral to the ASIS. Dissection was carried down his subcutaneous fat exposing the fascia over the tensor fascia izzy which was longitudinally incised and elevated off the anterio r 50% of the TFL muscle. Interval between TFL and rectus femoris developed. Crossing branches of ascending lateral femoral circumflex vessels were ligated with suture divided. A retractor was placed anteromedial to the capsule hip abducted internally rotated the gluteus minimus elevated off the lateral capsule. Inverted T capsulotomy was performed. Femoral neck osteotomy was made according to preoperative templating. Femoral head was removed and measured 44 mm in diameter. Acetabulum was exposed labrum excised. The femur was externally rotated and extended and the nerve between conjoined tendon and piriformis incised allowing the conjoined tendon to partially recessed. The leg back in the horizontal position the acetabulum was exposed and prepared medialized with a 42 Reamer to the medial wall and reaming up to 48 mm. Acetabular preparation was performed with fluoroscopic assistants. The 48 trial fit properly and the 48 emphasis Depuy acetabular cup was impacted at 40? of ab duction and appropriate anteversion. Excellent Press-Fit was achieved and an additional screw was placed into the ilium for fixation. Thirty-six inner diameter liner was seated without difficulty. Femur was externally rotated extended with the table hook in place exposing the proximal femur which was broached to a size 5. There is still little bit of rotational play. We took an intraoperative fluoroscopic x-ray and determined that we were about 4 mm long with the +5 neck. We countersunk the 5 broach 4 mm and found that a 5 still had rotational play. We calcar planed and inserted the size 6 Actis broach which gave complete torsional stability. On trialing because of the extra 2 mm of offset going from 5 to 6, the hip was quite tight with the +5 head and we trialed with the 1.5 head and standard offset neck and this gave appropriate soft tissue tension and leg lengths appeared to be equal according to line drawn across the extracting machine operator foramina under fluoroscopic evaluation. We had complete torsional stability of the 6 broach. Calcar planing was completed and we placed the size 6 Actis standard neck stem which seated fully no cracks in the calcar. We trialed 1 more time in the 1.5 was appropriate. The 1.5 x 36 mm ceramic femoral head was impacted on the clean and dried trunnion after thorough irrigation antibiotic solution. Hip reduced stability reconfirmed. Final fluoroscopic x-ray was obtained. Local anesthetic cocktail injected in the periarticular soft tissues. Superior limb of the capsulotomy closed with 2. Vicryl. Fascia was closed with running 1. Vicryl dr zandra klein in the subcutaneous layer skin closed with 2 subcutaneous Vicryl and glue. EBL by Cell Saver was estimated at 3:50 a.m. so we estimated total blood loss of 400. She received 125 cc back as Cell Saver blood. Two additional g of Ancef and 1 g of TXA given time wound closure. Bone quality seemed to be excellent in the lower to be weight-bearing as tolerated after surgery with walker for balance. [facility] Billing Surgery - Charge Forward: Surgery Billing (Right total hip replacement)
--- NOTE | 2024-06-19 10:55 | PM.OP ---
Procedure Note - Brief Procedure Note - Brief Date of procedure: 06/19/24 oa right hip Procedure performed: Right anterior total hip arthroplasty Surgeon: HERMELINDO Lema Findings: 63-year-old female underwent right anterior total hip arthroplasty on 06/19. I was involved procedure including positioning the patient on the OR table in 1st assisting through the time surgery. Total time spent was 3 hours
[2024-06-19] MEDS: fentaNYL CITRATE INJ (*CRX) 100 MCG/2 ML VIAL 25 MCG IV PUSH ×5 (11:08→12:02)
[2024-06-19] MEDS: ONDANSETRON INJ 4 MG/2 ML VIAL IV PUSH (11:17)
[2024-06-19] MEDS: ACETAMINOPHEN 325 MG TABLET 650 MG PO ×4 (13:25→23:57)
[2024-06-19] MEDS: oxyCODONE HCL (*CRX) 5 MG TAB IR PO ×4 (13:25→23:57)
--- NOTE | 2024-06-19 15:41 | P.CONIM_ITS ---
Assessment and Plan Assessment and plan (1) Primary osteoarthritis of right hip: Code(s): M16.11 - Unilateral primary osteoarthritis, right hip Status: Acute Assessment and Plan: Status post right hip total arthroplasty by Orthopedics PT OT michelle Nguyen b.i.d., Mari Completed LR antibiotics For cefazolin x3 Pain management by Orthopedics Okay for regular diet Hemovac care (2) GERD (gastroesophageal reflux disease): Code(s): K21.9 - Gastro-esophageal reflux disease without esophagitis Status: Acute Assessment and Plan: Pepcid (3) Anxiety: Code(s): F41.9 - Anxiety disorder, unspecified Status: Acute Assessment and Plan: Continue Wellbutrin HPI Date of Consult Consult date: 06/19/24 Requesting Physician: Brent Vasquez MD Primary Care Provider: Montserrat Woo Consult Narrative Narrative: Laxmi Guerra is a 63 year old female past medical history of arthritis, GERD, anxiety who presents the hospital for a planned right anterior total hip arthroplasty secondary to osteoarthritis. Patient was seen after 0R. She is doing well pain is controlled. She will work PT and OT to tomorrow. Patient has no complaints at this time. Denies nausea or vomiting. Review of Systems Review of Systems: 12 systems were reviewed and are negativ e except for as per HPI. [facility] Past Medical History Medical History (Updated 06/19/24 @ 15:45 by Garima Waldrop APRN) Arthritis GERD (gastroesophageal reflux disease) Anxiety Surgical History Surgical History History of hip replacement 2020 Left Hip Family History Family History Mother Hypertension Social History Social History (Updated 06/06/24 @ 15:36 by Sultana Barron [facility]) Smoking packs per day: 0.5 Smoking cigarettes per day: 10.0 Years smoked: 25 Smoking pack-years: 12.50 Smoking status: Former smoker Tobacco type: cigarettes Smoking end date: 05/06/24 Additional smoking assessment comments: pt states that she has not smoked in 10 days Alcohol intake: never Substance use: never Current Housing: Decline to Answer Concerned About Future Housing: Decline to Answer Difficulty Paying Gas/Electric Bills: Decline to Answer Difficulty Paying for Meds: Decline to Answer Currently Unemployed: Decline to Answer Education: Decline to Answer Difficulty w/ Childcare or Family Care: Decline to Answer Living arrangements: with family Additional living arrangements comments: [facility] Spiritual care concerns: No Meds Home Medications and Allergies Home Medications ?Medication ?Instructions ?Recorded ?Confirmed ?Type acetaminophen 500 mg capsule 1,000 mg PO .HS 02/06/24 06/12/24 History ascorbic acid 1,000 1 ea PO DAILY 02/06/24 06/19/24 History [id number] powder effervescent pack (Emergen-C) atorvastatin 20 mg tablet 20 mg PO QHS 02/06/24 06/19/24 History bupropion HCl 150 mg 24 hr tablet, 150 mg PO QAM 02/06/24 06/19/24 History extended release calcium carbonate (Calcium 600) 600 mg PO DAILY 02/06/24 06/19/24 History cholecalciferol (vitamin D3) 125 125 mcg PO DAILY 02/06/24 06/19/24 History mcg (5,000 unit) capsule cyclobenzaprine 10 mg tablet 10 mg PO .HS 02/06/24 06/19/24 History fluticasone propionate 50 1 spray intranasal DAILY 02/06/24 06/19/24 History mcg/actuation nasal spray,suspension (Allergy Relief (fluticasone)) hydrochlorothiazide 25 mg tablet 50 mg PO QAM 02/06/24 06/19/24 History melatonin 10 mg chewable tablet 20 mg PO HS 02/06/24 06/12/24 History montelukast 10 mg tablet 10 mg PO DAILY 02/06/24 06/19/24 History omeprazole 40 mg capsule,delayed 40 mg PO BID 02/06/24 06/19/24 History release pregabalin 50 mg capsule 50 mg PO BID 02/06/24 06/19/24 History psyllium husk 0.4 gram capsule 0.4 g PO DAILY 02/06/24 06/19/24 History (Daily Fiber) sertraline 50 mg tablet 50 mg PO DAILY 02/06/24 06/19/24 History cranberry extract 425 mg capsule 4,200 mg PO DAILY 05/31/24 06/19/24 History lisinopril 40 mg tablet 40 mg PO HS 05/31/24 06/19/24 History Allergies Allergy/AdvReac Type Severity Reaction Status Date / Time codeine AdvReac Mild Nausea and Verified 06/19/24 06:12 Vomiting Vital Signs Vital Signs - 24 hr 06/19/24 10:49 06/19/24 10:55 06/19/24 11:05 Temperature 97.9 F Pulse Rate 76 80 74 Respiratory Rate 12 20 16 Blood Pressure 157/81 H 117/76 Pulse Oximetry 100 96 100 Oxygen Delivery Simple Face Mask Simple Face Mask Simple Face Mask Oxygen Flow Rate 10 10 10 06/19/24 11:20 06/19/24 11:35 06/19/24 11:50 Temperature Pulse Rate 73 73 75 Respiratory Rate 20 18 15 Blood Pressure 126/66 126/69 126/72 Pulse Oximetry 96 93 97 Oxygen Delivery Simple Face Mask Nasal Cannula Nasal Cannula Oxygen Flow Rate 10 2 2 06/19/24 12:05 06/19/24 12:30 06/19/24 12:55 Temperature 97.6 F 97.8 F Pulse Rate 73 73 76 Respiratory Rate 16 14 14 Blood Pressure 127/77 124/65 127/63 Pulse Oximetry 99 100 100 Oxygen Delivery Nasal Cannula Oxygen Flow Rate 2 06/19/24 13:25 06/19/24 13:31 Temperature 97.8 F Pulse Rate 78 Respiratory Rate 14 Blood Pressure 108/76 Pulse Oximetry 100 Oxygen Delivery Room Air Oxygen Flow Rate Exam Narrative: General: well appearing, appears stated age. HEENT: normocephalic, atraumatic. Mucous membranes moist. EOMI, PERRLA, bilateral sclera anicteric, no conjunctival injection. Neck supple without JVD, lymphadenopathy, or bruit. Respiratory: clear to ascultation bilaterally. No rales/rhonic/wheezes. Cardiovascular: Regular rate and rhythm, normal S1-S2 upon ascultation. No murmurs, rubs, or clicks. PMI is nondisplaced, capillary refill less than 3 second. Abdomen: Soft, round, no pulsatile masses, nondistended and nontender. No rebound, no guarding. No CVA tenderness, no hepatosplenomegaly. Bowel sounds present to all four quadrants. No high pitch or tinkling sounds, resonant to percussion. Extremities: No cyanosis, clubbing, or edema present. Pulses are palpable 2/2. Right leg range of motion reduced due to pain, postop surgical site dressing clean dry intact, hemovac Neuro: Alert and orientated x 4. PERRLA. Cranial nerves 2-12 intact without focal deficit. Skin: Warm, dry, and intact, without rash, erythema, or lesion. Psych: pleasant, cooperative, normal speech, normal affect, no hallucinations, no dysarthia Quality VTE Prophylaxis VTE prophylaxis: mechanical ordered and pharmacologic ordered Hospitalist MIPS Advance Care Plan I have confirmed that the patient's Advanced Care Plan is present, code status is documented, or surrogate decision maker is listed in patient medical record.: Yes Medication Reconciliation I have utilized all available resources to obtain, update and review the patients current medications (includes all prescriptions, OTC, herbals, cannabis, and nutritional supplements).: Yes
[2024-06-19] MEDS: SENNA/DOCUSATE SODIUM TABLET 2 TAB PO (16:16)
[2024-06-19] MEDS: PREGABALIN (*CRX) 50 MG CAPSULE PO (16:16)
[2024-06-19] MEDS: VANCOMYCIN 1,000 MG/NS 250 ML 1,000 MG/250 ML BAG 250 MG IVPB (17:03)
[2024-06-19] MEDS: FAMOTIDINE 20 MG TABLET PO (21:02)
[2024-06-19] MEDS: ATORVASTATIN 20 MG TABLET PO (21:02)
[2024-06-19] MEDS: PANTOPRAZOLE 40 MG TABLET PO (21:03)
[2024-06-19] MEDS: CYCLOBENZAPRINE HCL 10 MG TABLET PO (21:03)
[2024-06-20 03:28] VITALS: BP 100/55; PULSE 84; RESP 16; TEMP 36.3; O2SAT 100
[2024-06-20] MEDS: VANCOMYCIN 1,000 MG/NS 250 ML 1,000 MG/250 ML BAG 250 MG IVPB (05:18)
[2024-06-20] MEDS: ACETAMINOPHEN 325 MG TABLET 650 MG PO ×2 (05:18→08:24)
[2024-06-20] MEDS: oxyCODONE HCL (*CRX) 5 MG TAB IR PO ×2 (05:18→08:26)
[2024-06-20 06:24] LABS: Basophils Percent Auto 0.4 % (0.2-1.2); Eosinophils Absolute Auto 0.1 K/mm3 (0-0.3); Eosinophils Percent Auto 0.8 % (0-4.4); Hematocrit 25.8 % (37.0-47.0); Hemoglobin 8.5 g/dL (12.0-15.0); Immature Granulocyte Absolute 0.04 K/mm3 (0.00-0.031); Immature Granulocyte Percent A 0.4 % (0-0.5); Lymphocytes Percent Auto 22.2 % (18.3-44.2); Mean Corpuscular HGB Conc 32.9 g/dl (32-36); Mean Corpuscular Hemoglobin 30.1 pg (26-34); Mean Corpuscular Volume 91.5 fl (80-100); Mean Platelet Volume 10.2 fl (7.4-10.4); Monocytes Absolute Auto 0.7 K/mm3 (0.1-0.6); Monocytes Percent Auto 7.5 % (2.6-8.5); Neutrophils Absolute Auto 6.2 K/mm3 (1.3-6.7); Neutrophils Percent Auto 68.7 % (45.5-73.1); Platelet Count Result 255 k/mm3 (150-375); Red Blood Count 2.82 M/mm3 (4.2-5.4); Red Cell Distribution Width 13.8 % (11.5-14.5)
[2024-06-20 06:35] LABS: Anion Gap 5 mmol/L (4-12); Blood Urea Nitrogen 11 mg/dL (7-17); Calcium 7.7 mg/dL (8.4-10.2); Carbon Dioxide 27 mmol/L (22-30); Chloride 101 mmol/L (98-107); Estimated CRCL calculation 70 ml/min; Estimated Glomerular Filt Rate > 60; Glucose 108 mg/dL (65-110); Potassium 3.5 mmol/L (3.4-5.0); Sodium 133 mmol/L (137-145)
[2024-06-20] MEDS: ceFAZolin 2 GM/D5W 50 ML 2 GM/50 ML BAG IVPB (07:00)
--- NOTE | 2024-06-20 07:31 | PM.PNORT ---
Subjective Subjective Date/Time Seen: 06/20/24 07:31 Interval history: Postop day 1 patient is alert. She is afebrile vital signs are stable. Blood pressure is running. Her pulse is normal. Morning labs are noted. Hemoglobin at 8.5. Patient was up walking with therapy yesterday and was tolerating that well. Patient's lisinopril and HCTZ have been held overnight. Dressing is dry and intact. Drain is out. Neurovascularly she is intact. Pain overall is very well controlled. Will plan have the patient work with Physical therapy this morning and if she is comfortable and tolerating the anemia without significant symptoms will plan on discharging her home. We will have the patient get another CBC drawn tomorrow on an outpatient basis to monitor her hemoglobin. Patient is going to hold her lisinopril when she goes home and monitor her blood pressure. She has recently lost approximately 20lbs and may not require lisinopril, she will contact her primary care doctor if her blood pressures remain low to see if she needs to discontinue the lisinopril. Objective Data Vital Signs Vital Signs: Vital Signs - 24 hr 06/19/24 10:49 06/19/24 10:55 06/19/24 11:05 Temperature 97.9 F Pulse Rate 76 80 74 Respiratory Rate 12 20 16 Blood Pressure 157/81 H 117/76 Pulse Oximetry 100 96 100 Oxygen Delivery Simple Face Mask Simple Face Mask Simple Face Mask Oxygen Flow Rate 10 10 10 06/19/24 11:20 06/19/24 11:35 06/19/24 11:50 Temperature Pulse Rate 73 73 75 Respiratory Rate 20 18 15 Blood Pressure 126/66 126/69 126/72 Pulse Oximetry 96 93 97 Oxygen Delivery Simple Face Mask Nasal Cannula Nasal Cannula Oxygen Flow Rate 10 2 2 06/19/24 12:05 06/19/24 12:30 06/19/24 12:55 Temperature 97.6 F 97.8 F Pulse Rate 73 73 76 Respiratory Rate 16 14 14 Blood Pressure 127/77 124/65 127/63 Pulse Oximetry 99 100 100 Oxygen Delivery Nasal Cannula Oxygen Flow Rate 2 06/19/24 13:25 06/19/24 13:31 06/19/24 13:48 Temperature 97.8 F Pulse Rate 78 Respiratory Rate 14 Blood Pressure 108/76 Pulse Oximetry 100 Oxygen Delivery Room Air Room Air Oxygen Flow Rate 06/19/24 17:35 06/19/24 20:21 06/19/24 23:30 Temperature 97.6 F 97.9 F 97.4 F L Pulse Rate 78 84 83 Respiratory Rate 18 16 16 Blood Pressure 116/71 91/61 L 94/67 L Pulse Oximetry 100 100 100 Oxygen Delivery Oxygen Flow Rate 06/20/24 03:28 Temperature 97.3 F L Pulse Rate 84 Respiratory Rate 16 Blood Pressure 100/55 L Pulse Oximetry 100 Oxygen Delivery Oxygen Flow Rate Intake/Output Intake/Output: Intake & Output 06/17/24 06/18/24 06/19/24 06/20/24 23:59 23:59 23:59 23:59 Intake Total 1020 Output Total 5 60 Balance 1015 -60 Meds/Results Medications: Active Medications Generic Name Dose Route Start Last Admin Trade Name Freq PRN Reason Stop Dose Admin Acetaminophen 650 mg 06/19/24 13:00 06/20/24 05:18 Acetaminophen 325 Mg Tablet PO 650 mg Q4H POOJA Administration Apixaban 2.5 mg 06/20/24 09:00 Apixaban 2.5 Mg Tablet PO Q12HR [facility] Atorvastatin Calcium 20 mg 06/19/24 21:00 06/19/24 21:02 Atorvastatin 20 Mg Tablet PO 20 mg QHS POOJA Administration Bupropion HCl 150 mg 06/20/24 09:00 Bupropion Hcl Xl (24 Hr) 150 Mg Tabcr PO QAM [facility] Cefdinir 300 mg 06/20/24 09:00 Cefdinir 300 Mg Capsule PO Q12HR [facility] Celecoxib 200 mg 06/20/24 09:00 Celecoxib 200 Mg Capsule PO DAILY [facility] Cyclobenzaprine HCl 10 mg 06/19/24 21:00 06/19/24 21:03 Cyclobenzaprine Hcl 10 Mg Tablet PO 10 mg HS POOJA Administration Famotidine 20 mg 06/19/24 21:00 06/19/24 21:02 Famotidine 20 Mg Tablet PO 20 mg Q12HR POOJA Administration Fluticasone Propionate 1 spray 06/20/24 09:00 Fluticasone Propionate 0.05% Na Spr 16 Gm Btl (*Bkc) NASAL DAILY [facility] Hydrochlorothiazide 50 mg 06/20/24 09:00 Hydrochlorothiazide 25 Mg Tablet PO QAM [facility] Sodium Chloride 1,000 mls @ 125 mls/hr 06/19/24 12:17 06/19/24 21:16 Normal Saline Iv IV CONT Not Given .Q8H POOJA Lisinopril 40 mg 06/19/24 21:00 06/19/24 21:08 Lisinopril 20 Mg Tablet PO Not Given HS POOJA Melatonin 20 mg 06/19/24 21:00 06/19/24 21:08 Melatonin 5 Mg Tablet PO Not Given HS [facility] Montelukast Sodium 10 mg 06/20/24 09:00 Montelukast Sodium 10 Mg Tablet PO DAILY [facility] Morphine Sulfate 2 mg 06/19/24 12:17 Morphine Sulfate (*Crx) 2 Mg/Ml Inj IV PUSH Q2H PRN Breakthrough Pain Rated 4-6 or NPO Naloxone HCl 0.1 mg 06/19/24 12:17 Naloxone Hcl 0.4 Mg/Ml Vial IV PUSH Q2M PRN Opiate Reversal Ondansetron HCl 4 mg 06/19/24 12:17 Ondansetron Inj 4 Mg/2 Ml Vial IV PUSH Q4H PRN Nausea And Vomiting Oxycodone HCl 5 mg 06/19/24 12:17 06/20/24 05:18 Oxycodone Hcl (*Crx) 5 Mg Tab Ir PO 5 mg Q4H POOJA Administration Oxycodone HCl 5 mg 06/19/24 12:17 Oxycodone Hcl (*Crx) 5 Mg Tab Ir PO Q4H PRN Pain Rated 7-10 Pantoprazole Sodium 40 mg 06/19/24 21:00 06/19/24 21:03 Pantoprazole 40 Mg Tablet PO 40 mg Q12HR POOJA Administration Polyethylene Glycol 17 gm 06/20/24 09:00 Polyethylene Glycol 3350 17 Gm Powd.Pack PO QAM [facility] Pregabalin 50 mg 06/19/24 17:00 06/19/24 16:16 Pregabalin (*Crx) 50 Mg Capsule PO 50 mg BID [facility] Administration Senna/Docusate Sodium 2 tab 06/19/24 17:00 06/19/24 16:16 Senna/Docusate Sodium Tablet PO 2 tab BID [facility] Administration Sertraline HCl 50 mg 06/20/24 09:00 Sertraline Hcl 50 Mg Tablet PO DAILY [facility] Vitamin D 5,000 units 06/20/24 09:00 Cholecalciferol 5,000 Units Tablet PO DAILY [facility] Radiology Results: ITS Impressions Hip/Pelvis X-Ray 06/19/24 10:53 IMPRESSION: 1. Recent right total hip arthroplasty. Intraoperative X-Ray 06/19/24 10:53 IMPRESSION: 1. Expected appearance of a right total hip arthroplasty. See procedure note for further detail. Labs Labs: Laboratory Results - last 24 hr 06/19/24 06/20/24 06/20/24 06:31 06:01 06:02 WBC 9.0 RBC 2.82 L Hgb 8.5 L D Hct 25.8 L MCV 91.5 MCH 30.1 MCHC 32.9 RDW 13.8 Plt Count 255 MPV 10.2 Immature Gran % (Auto) 0.4 Neut % (Auto) 68.7 Lymph % (Auto) 22.2 [place] % (Auto) 7.5 Eos % (Auto) 0.8 Baso % (Auto) 0.4 Lymph # (Auto) 2.00 [place] # (Auto) 0.7 H Eos # (Auto) 0.1 Baso # (Auto) 0.0 Abs Immat Gran (auto) 0.04 H Absolute Neuts (auto) 6.2 Absolute Nucleated RBC 0.000 Nucleated RBC % 0.0 Sodium 133 L Potassium 3.5 Chloride 101 Carbon Dioxide 27 Anion Gap 5 BUN 11 Creatinine 0.75 Estim Creat Clear Calc 70 Estimated GFR > 60 Glucose 108 Calcium 7.7 L Antibody Screen Negative
[2024-06-20] MEDS: polyethylene glycoL 3350 17 GM POWD.PACK PO (08:22)
[2024-06-20] MEDS: buPROPion HCL XL (24 HR) 150 MG TABCR PO (08:23)
[2024-06-20] MEDS: CEFDINIR 300 MG CAPSULE PO (08:23)
[2024-06-20] MEDS: PREGABALIN (*CRX) 50 MG CAPSULE PO (08:23)
[2024-06-20] MEDS: CELECOXIB 200 MG CAPSULE PO (08:24)
[2024-06-20] MEDS: MONTELUKAST SODIUM 10 MG TABLET PO (08:24)
[2024-06-20] MEDS: SENNA/DOCUSATE SODIUM TABLET 2 TAB PO (08:25)
[2024-06-20] MEDS: APIXABAN 2.5 MG TABLET PO (08:25)
[2024-06-20] MEDS: SERTRALINE HCL 50 MG TABLET PO (08:25)
[2024-06-20] MEDS: FAMOTIDINE 20 MG TABLET PO (08:25)
[2024-06-20] MEDS: PANTOPRAZOLE 40 MG TABLET PO (08:25)
[2024-06-20] MEDS: CHOLECALCIFEROL 5,000 UNITS TABLET 5000 UNITS PO (08:26)
[2024-06-20 10:02] VITALS: BP 127/73; PULSE 81; RESP 18; TEMP 35.9; O2SAT 97
== END 2024-06-20 10:33 | disposition home or self-care (01) ==
LOC: ANHSURGERY 05:47 → ANH3MEDSUR 12:18
PROVIDERS: Physician Assistant Surgical; Visit Provider Orthopaedic Surgery
PROC: (CPT 27130; principal; 2024-06-19 07:30)
DX: M16.11 Unilateral primary osteoarthritis, right hip (principal); K21.9 Gastro-esophageal reflux disease without esophagitis; F41.9 Anxiety disorder, unspecified; E66.9 Obesity, unspecified; Z68.33 Body mass index [BMI] 33.0-33.9, adult; Z98.890 Other specified postprocedural states; Z96.642 Presence of left artificial hip joint; Z87.891 Personal history of nicotine dependence
CPT/HCPCS: 27130; 36415; 73501; 80048; 85025; 86850; 86900; 86901; 97110; 97116; 97161; 97165; 97530; 97535; 99199; A9270; C1776; J0171; J0690; J1100; J1885; J2003; J2250; J2270; J2405; J2704; J2795; J3010; J3370; J7040; J7120